=== PATIENT | female | born 1935 | race Caucasian/White ===

== ENCOUNTER → 2016-06-24 | Outpatient (CLI) | payer OTHER ==
[~2016-06-24] MED LIST: ALEN70TA4 PO; AMLO10TA2 PO; HYDR25TA4 PO; LEVO88TA21 PO; MCRK20 PO; SIMV40TA4 PO
--- NOTE | 2016-06-24 12:31 | DIAGNOSTIC IMAGING REPORT ---
MRI ABDOMEN WITHOUT CONTRAST CLINICAL HISTORY: LIVER MASS; W/O BC OF GFR TECHNIQUE: Imaging was performed without IV contrast enhancement. COMPARISON STUDY: Ultrasound GM dated 06/16/2016. CT abdomen and pelvis dated 11/23/2005 FINDINGS: Multiple bilateral renal cysts. These have been described previously. No evidence for a solid space occupying renal lesion. Superior to the right kidney and in contact with but not involving the right hepatic lobe is a mixed signal well-circumscribed nodule measuring 4.6 x 4.0 x 3.6 cm. This appears to be the echogenic nodule seen on the patient's prior ultrasound. 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 That density has been described previously. Liver parenchyma itself appears uniform. The component of mild fatty infiltration. Pancreas is unremarkable. Bowel pattern is nonobstructive. There is suggestion of several loops of small bowel showing mild wall thickening felt to be artifactual. There is no significant paravertebral or abdominal adenopathy. IMPRESSION: 1. Mixed echogenicity mass appearing to originate from the right adrenal measuring 4.6 x 4.0 x 3.6 cm. 2. This appearance suggests a benign myelolipoma, although somewhat increased in size compared to the patient's prior CT study. 3. Multiple bilateral renal cysts. 4. Mild fatty infiltration of liver Electronically signed by: Aakash Echavarria M.D. 06/24/2016 12:30 PM Dictated Date/Time: 06/24/2016 12:23 PM
== END | disposition home or self-care (01) ==
LOC: C.MRI 10:06
PROVIDERS: ATTEND Internal Medicine
DX: R16.0 Hepatomegaly, not elsewhere classified (principal); E27.9 Disorder of adrenal gland, unspecified; N28.1 Cyst of kidney, acquired

== ENCOUNTER → 2016-09-28 | Outpatient (CLI) | payer OTHER ==
--- NOTE | 2016-09-28 11:14 | DIAGNOSTIC IMAGING REPORT ---
MRI ABDOMEN WITHOUT CONTRAST CLINICAL HISTORY: ADRENAL MASS TECHNIQUE: Imaging was performed without IV contrast enhancement. COMPARISON STUDY: 06/24/2016 FINDINGS: Stable exam compared to the prior study. Right adrenal mass measuring 4.6 x 4.0 cm. Mixed signal characteristics including fat density. This again is suggestive of a myelolipoma. Bilateral renal cysts are stable. No evidence for new or interval process. Liver is uniform as is the spleen. No significant upper abdominal adenopathy. Pancreas is uniform throughout. IMPRESSION: Stable exam with no change from the prior study. 2. Stable right adrenal myelolipoma. 3. Bilateral renal cysts unchanged. 4. No evidence for new or interval process. Electronically signed by: Aakash Echavarria M.D. 09/28/2016 11:13 AM Dictated Date/Time: 09/28/2016 11:08 AM
== END | disposition home or self-care (01) ==
LOC: C.MRI 10:13
PROVIDERS: ATTEND Internal Medicine
DX: E27.9 Disorder of adrenal gland, unspecified (principal); R79.89 Other specified abnormal findings of blood chemistry

== ENCOUNTER 2018-09-18 15:13 | Inpatient (IN) ==
[2018-09-18] MEDS ORDERED: ALBUT/IPRATROP 3MG/0.5MG NEB 3 ML VIAL INH STA (15:46)
[2018-09-18] MEDS ORDERED: methylPREDNISolone 125 MG/2 ML VIAL IV STA (15:46)
[2018-09-18 16:04] LABS: Basophils # (auto) 0.02 K/uL (0-0.2); Basophils % (auto) 0.1 %; Eosinophils # (auto) 0.15 K/uL (0-0.5); Hematocrit (blood only) 38.8 % (37-47); Hemoglobin 12.8 g/dL (12.0-16.0); Immature Granulocytes # (auto) 0.14 K/uL (0.00-0.02); Immature Granulocytes % (auto) 0.9 %; Lymphocytes % (auto) 2.6 %; Mean Corpuscular Volume 85.5 fL (80-100); Mean Platelet Volume 11.8 fL (7.4-10.4); Monocytes # (auto) 0.83 K/uL (0.11-0.59); Monocytes % (auto) 5.4 %; Neutrophils # (auto) 13.82 K/uL (1.4-6.5); Platelet Count 257 K/uL (130-400); RDW Coefficient of Variation 15.5 % (11.5-14.5); RDW Standard Deviation 47.9 fL (36.4-46.3); Red Blood Count 4.54 M/uL (4.2-5.4); White Blood Count 15.36 K/uL (4.8-10.8)
[2018-09-18 16:14] LABS: INR 3.3 (0.9-1.1); Partial Thromboplastin Ratio 1.1; Partial Thromboplastin Time 30.2 Seconds (21.0-31.0); Prothrombin Time 31.1 Seconds (9.0-12.0)
[2018-09-18 16:28] LABS: Alanine Aminotransferase 16 U/L (12-78); Albumin Level 2.9 gm/dl (3.4-5.0); Aspartate Aminotransferase 12 U/L (15-37); BUN Creatinine Ratio 20.3 (10-20); Blood Urea Nitrogen 60 mg/dl (7-18); Calcium 10.8 mg/dl (8.5-10.1); Carbon Dioxide 25 mmol/L (21-32); Chloride 103 mmol/L (98-107); Est GFR (African American) 16.2; Glucose 129 mg/dl (70-99); Magnesium 2.5 mg/dl (1.8-2.4); Potassium 3.7 mmol/L (3.5-5.1); Sodium 139 mmol/L (136-145)
[2018-09-18 16:33] LABS: Albumin Globulin Ratio 0.7 (0.9-2); Alkaline Phosphatase 103 U/L (45-117); Bilirubin,Total 0.6 mg/dl (0.2-1); Globulin 4.2 gm/dl (2.5-4.0); Total Protein 7.1 gm/dl (6.4-8.2); Troponin I < 0.015 ng/ml (0-0.045)
[2018-09-18] MEDS ORDERED: DOXYCYCLINE HYCLATE 100 MG in DEXTROSE 5% 100 ML IV STA (17:26)
[2018-09-18] MEDS ORDERED: ALBUT/IPRATROP 3MG/0.5MG NEB 3 ML VIAL NEB STA (17:26)
[2018-09-18] MEDS ORDERED: SODIUM CHLORIDE 0.9% 1000ML 1,000 ML IV STA (17:27)
[2018-09-18] MEDS ORDERED: PIPERACILLIN/TAZOBACTAM 3.375 GM/115 ML BAG IV STA (18:46)
[2018-09-18] MEDS ORDERED: PIPERACILL/TAZOBAC CONSULT ACTIVE PRN (18:46)
[2018-09-18 19:49] LABS: Appearance Urine Clear (Clear); Bacteria Urine Automated Negative (Negative); Bilirubin Urine Negative (Negative); Blood Urine Trace (Negative); Color Urine Yellow; Epithelial Cell Urine Auto >30 /lpf (0-5); Glucose Urine UA Negative (Negative); Ketones Urine Negative (Negative); Leukocyte Esterase Urine Negative (Negative); Nitrite Urine Negative (Negative); Protein Urine Negative (Negative); RBC Urine Automated 0-4 /hpf (0-4); Specific Gravity Urine 1.015 (1.000-1.030); Urobilinogen Urine Negative (Negative)
[2018-09-18] MEDS ORDERED: LEVALBUTEROL HCL 0.63 MG/3 ML NEB NEB PRN (20:18)
[2018-09-18] MEDS ORDERED: ACETAMINOPHEN 325 MG TAB PO PRN (21:15)
[2018-09-18] MEDS ORDERED: PATIENT'S HEIGHT AND/OR WEIGHT NEEDED SCH (21:30)
[2018-09-19] MEDS: SODIUM CHLORIDE 0.9% 1000ML 1,000 ML IV SCH ×3 (00:28→21:49)
[2018-09-19] MEDS: BUDESONIDE 0.5 MG/2 ML VIAL (PULMICORT) INH SCH ×3 (00:45→19:41)
--- NOTE | 2018-09-19 00:55 | Emergency Department Note ---
Entered by Laura Burdick acting as a scribe for Kevin Brown MD ED Provider Note CHIEF COMPLAINT: Respiratory Distress HISTORY OF PRESENT ILLNESS: The patient is a 83 year old female who presents to the Emergency Room with com plaints of respiratory distress that began several months prior to arrival. The patient states that she has shortness of breath and states that they tried to increase her breathing rate at [facility] just prior to arrival. The patient states that she does not wear oxygen at home but states that she does use an inhaler. The patient states that she just finished a prednisone adin 1 day prior to arrival. The patient denies any general pain. The patient also states that she had a chest XRAY done at [facility] prior to arrival. The patient states that she has history of asthma, COPD, emphysema, and a cardiac pacemaker. The patient states that she has a history of blood clots in the lungs and states that she is on Coumadin for this. The patient denies a history of pneumonia. Pt denies LOC, headache, fevers, chills, diaphoresis, visual changes, neck pain, chest pain, nausea, vomiting, abdominal pain, back pain, melena, hematochezia, urinary symptoms, numbness, weakness, lymphadenopathy, rash, or other complaints. [facility] Reviewed: The patient's chest XRAY from [facility] showed severe emphysema with no pneumonia or pneumothorax. 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 REVIEW OF SYSTEMS: See HPI for pertinent positives and negatives. A total of ten systems were reviewed and were otherwise negative. PMHx/PSHx: Thor-tachy syndrome Pulmonary embolism Stage 4 chronic kidney disease Lupus anticoagulant disorder COPD (chronic obstructive pulmonary disease) Asthma Emphysema SOCIAL HISTORY: Patient lives at home. PHYSICAL EXAM: GENERAL: Awake, alert, well-appearing, in no distress. HENT: Normocephalic, atraumatic. Oropharynx unremarkable. EYES: PERRL. Normal conjunctiva. Sclera non-icteric. NECK: Inspection normal. Non-tender. Supple. No nuchal rigidity. FROM. No masses. RESPIRATORY: Diminished breath sounds at bases. No wheezes. No rales. Normal respiratory effort. CARDIAC: Normal rate. Normal rhythm. No murmurs. No rubs. Extremities warm and well perfused. Pulses equal. No JVD. GI: Soft, non-distended. No tenderness to palpation. No rebound or guarding. No masses. RECTAL: Deferred. MUSCULOSKELETAL: Atraumatic. Chest examination reveals no tenderness. The back is symmetrical on inspection without obvious abnormality. There is no CVA tenderness to palpation. No joint edema. LOWER EXTREMITIES: Calves are equal size bilaterally and non-tender. No edema. Chronic venous discoloration. NEURO: Normal sensorium. No sensory or motor deficits noted. SKIN: No rash or jaundice noted. EMERGENCY DEPARTMENT COURSE: 1545: Past medical records reviewed. The patient was evaluated in room C5, and a complete history and physical examination were performed. 1650: I checked on the patient and updated her on her results. The patient is agreeable to admission. 1745: I [facility] the [facility] who will evaluate the patient for further hospitalization. The patient will be admitted to Dr. Bowen. MEDICAL DECISION MAKING: Prior records/ancillary studies reviewed. Triage Nursing notes reviewed and agree them. Additional history obtained from the family. The patient's history was concerning for shortness of breath. Differential diagnosis: Etiologies such as pneumonia, COPD, reactive airway disease, CHF, cardiac ischemia, pulmonary embolism, pneumothorax, musculoskeletal, infections, gastrointestinal, as well as others were entertained. Physical examination: The patient had increased work of breathing. She was hypoxic on room air. ER treatment provided: Supplemental oxygen Cardiac monitoring DuoNeb x2 IV doxycycline On reassessment the patient felt better. Diagnostic interpretation by me: The electrocardiogram was negative for pathologic change. The labs revealed a moderate leukocytosis on CBC of 15,000. The patient's INR is slightly supratherapeutic at 3.3. Chemistry panel was concerning for dehydration and mild EVY. The patient does have a negative troponin. Chest x-ray report from [facility] revealed no evidence of pneumonia.. The patient has hypoxia. She is increased work of breathing. She is mildly dehydrated. She will need further management in the hospital regarding this COPD exacerbation. Consultation: A consultation was placed with the hospitalist. The case was discussed and diagnostics were reviewed. The patient was evaluated in the ER for further treatment. IMPRESSION: Hypoxia COPD (chronic obstructive pulmonary disease) Dehydration PLAN: Being Evaluated by Hospitalist. The scribe's documentation has been prepared under my direction and personally reviewed by me in its entirety. I confirm that the note above accurately reflects all work, treatment, procedures, and medical decision making performed by me. 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 Beliefs That Will Affect Care: None marital status: Current Living Situation: Spouse Current Living Situation Comment: House Other Information That Helps Us Care for You: No Feels Safe at Home: Yes Safety Concerns: Feels Safe At This Time Smoking Status: Former smoker Do You Dip or Chew Tobacco: No Second Hand Exposure: No Hx Alcohol Use: No Hx Substance Use: No Results & Data Vital Signs Vital Signs - 24 hr 09/18/18 15:15 09/18/18 16:07 09/18/18 16:33 Sepsis Recent Fever Within 48 Hours No Sepsis New/Unexplained Change in Mental Status No Sepsis Action Taken by Nursing No Action Required Pulse Rate 74 71 Pulse Rate [Right Radial] 62 Pulse Rate from SpO2 Sensor 71 Respiratory Rate 26 H 18 20 Respiratory Effort / Characteristics Non-Labored Non-Labored Spontaneous Respiratory Depth Normal Blood Pressure 115/76 Blood Pressure Mean 89 Pulse Oximetry 86 L 93 93 Oxygen Delivery Method Room Air Nasal Cannula Nasal Cannula Oxygen Flow Rate 6 6 09/18/18 16:46 09/18/18 16:49 09/18/18 17:00 Sepsis Recent Fever Within 48 Hours Sepsis New/Unexplained Change in Mental Status Sepsis Action Taken by Nursing Pulse Rate 61 Pulse Rate [Right Radial] Pulse Rate from SpO2 Sensor 61 Respiratory Rate 21 Respiratory Effort / Characteristics Respiratory Depth Blood Pressure Blood Pressure Mean Pulse Oximetry 95 Oxygen Delivery Method Nasal Cannula Nasal Cannula Nasal Cannula Oxygen Flow Rate 6 4.5 4 09/18/18 17:22 09/18/18 17:30 09/18/18 17:48 Sepsis Recent Fever Within 48 Hours Sepsis New/Unexplained Change in Mental Status Sepsis Action Taken by Nursing Pulse Rate 72 63 Pulse Rate [Right Radial] 68 Pulse Rate from SpO2 Sensor 63 59 L Respiratory Rate 16 22 18 Respiratory Effort / Characteristics Non-Labored Spontaneous Respiratory Depth Blood Pressure 136/65 Blood Pressure Mean 88 Pulse Oximetry 93 92 90 Oxygen Delivery Method Nasal Cannula Nasal Cannula Nasal Cannula Oxygen Flow Rate 4 2 2 09/18/18 18:00 09/18/18 18:30 Sepsis Recent Fever Within 48 Hours Sepsis New/Unexplained Change in Mental Status Sepsis Action Taken by Nursing Pulse Rate 72 67 Pulse Rate [Right Radial] Pulse Rate from SpO2 Sensor 71 65 Respiratory Rate 21 20 Respiratory Effort / Characteristics Respiratory Depth Blood Pressure Blood Pressure Mean Pulse Oximetry 93 92 Oxygen Delivery Method Nasal Cannula Nasal Cannula Oxygen Flow Rate 2 2 Home Medications Current Medication List: was personally reviewed by me Laboratory Data Attestation: I reviewed the patient's lab results. Result diagrams: 09/18/18 15:40 09/18/18 15:40 Lab Results 09/18/18 09/18/18 09/18/18 Range/Units 15:40 15:40 15:40 WBC 15.36 H (4.8-10.8) K/uL RBC 4.54 (4.2-5.4) M/uL Hgb 12.8 (12.0-16.0) g/dL Hct 38.8 (37-47) % MCV 85.5 (80-100) fL MCH 28.2 (25-34) pg MCHC 33.0 (32-36) g/dL RDW Std Deviation 47.9 H (36.4-46.3) fL RDW Coeff of Lazaro 15.5 H (11.5-14.5) % Plt Count 257 (130-400) K/uL MPV 11.8 H (7.4-10.4) fL Immature Gran % (Auto) 0.9 % Neut % (Auto) 90.0 % Lymph % (Auto) 2.6 % Williams % (Auto) 5.4 % Eos % (Auto) 1.0 % Baso % (Auto) 0.1 % Immature Gran # (Auto) 0.14 H (0.00-0.02) K/uL Neut # (Auto) 13.82 H (1.4-6.5) K/uL Lymph # (Auto) 0.40 L (1.2-3.4) K/uL Williams # (Auto) 0.83 H (0.11-0.59) K/uL Eos # (Auto) 0.15 (0-0.5) K/uL Baso # (Auto) 0.02 (0-0.2) K/uL PT 31.1 H (9.0-12.0) Seconds INR 3.3 H (0.9-1.1) APTT 30.2 (21.0-31.0) Seconds PTT Ratio 1.1 Sodium 139 (136-145) mmol/L Potassium 3.7 (3.5-5.1) mmol/L Chloride 103 (98-107) mmol/L Carbon Dioxide 25 (21-32) mmol/L Anion Gap 10.0 (3-11) BUN 60 H (7-18) mg/dl Creatinine 2.98 H (0.6-1.2) mg/dl Est Cr Clr Drug Dosing Not Reportable Est GFR ( Amer) 16.2 Est GFR (Non-Af Amer) 14.0 BUN/Creatinine Ratio 20.3 H (10-20) Glucose 129 H (70-99) mg/dl POC Lactic Acid Hima (0.90-1.70) mmol/L Calcium 10.8 H (8.5-10.1) mg/dl Magnesium 2.5 H (1.8-2.4) mg/dl Total Bilirubin 0.6 (0.2-1) mg/dl AST 12 L (15-37) U/L ALT 16 (12-78) U/L Alkaline Phosphatase 103 (45-117) U/L Troponin I < 0.015 (0-0.045) ng/ml Total Protein 7.1 (6.4-8.2) gm/dl Albumin 2.9 L (3.4-5.0) gm/dl Globulin 4.2 H (2.5-4.0) gm/dl Albumin/Globulin Ratio 0.7 L (0.9-2) 09/18/18 Range/Units 15:47 WBC (4.8-10.8) K/uL RBC (4.2-5.4) M/uL Hgb (12.0-16.0) g/dL Hct (37-47) % MCV (80-100) fL MCH (25-34) pg MCHC (32-36) g/dL RDW Std Deviation (36.4-46.3) fL RDW Coeff of Lazaro (11.5-14.5) % Plt Count (130-400) K/uL MPV (7.4-10.4) fL Immature Gran % (Auto) % Neut % (Auto) % Lymph % (Auto) % Williams % (Auto) % Eos % (Auto) % Baso % (Auto) % Immature Gran # (Auto) (0.00-0.02) K/uL Neut # (Auto) (1.4-6.5) K/uL Lymph # (Auto) (1.2-3.4) K/uL Williams # (Auto) (0.11-0.59) K/uL Eos # (Auto) (0-0.5) K/uL Baso # (Auto) (0-0.2) K/uL PT (9.0-12.0) Seconds INR (0.9-1.1) APTT (21.0-31.0) Seconds PTT Ratio Sodium (136-145) mmol/L Potassium (3.5-5.1) mmol/L Chloride (98-107) mmol/L Carbon Dioxide (21-32) mmol/L Anion Gap (3-11) BUN (7-18) mg/dl Creatinine (0.6-1.2) mg/dl Est Cr Clr Drug Dosing Est GFR ( Amer) Est GFR (Non-Af Amer) BUN/Creatinine Ratio (10-20) Glucose (70-99) mg/dl POC Lactic Acid Hima 2.46 H (0.90-1.70) mmol/L Calcium (8.5-10.1) mg/dl Magnesium (1.8-2.4) mg/dl Total Bilirubin (0.2-1) mg/dl AST (15-37) U/L ALT (12-78) U/L Alkaline Phosphatase (45-117) U/L Troponin I (0-0.045) ng/ml Total Protein (6.4-8.2) gm/dl Albumin (3.4-5.0) gm/dl Globulin (2.5-4.0) gm/dl Albumin/Globulin Ratio (0.9-2) Administered Medications Budesonide (Pulmicort Respules) 0.5 mg INH BIDR [facility] Stop: 10/18/18 21:14 Last Admin: 09/19/18 00:45 Dose: Not Given Documented by: [id number] Sodium Chloride (Nss 1000ml) 1,000 mls @ 125 mls/hr IV .Q8H [facility] Stop: 10/18/18 23:14 Last Admin: 09/19/18 00:28 Dose: 125 mls/hr Documented by: [id number] Ranitidine HCl (Zantac) 150 mg PO QPM [facility] Stop: 10/18/18 21:14 Last Admin: 09/18/18 21:56 Dose: 150 mg Documented by: [id number] Discontinued Medications Albuterol (Duoneb) 3 ml INH NOW STA Stop: 09/18/18 15:47 Last Admin: 09/18/18 16:07 Dose: 3 ml Documented by: [id number] Albuterol (Duoneb) 3 ml NEB NOW STA Stop: 09/18/18 17:27 Last Admin: 09/18/18 17:48 Dose: 3 ml Documented by: [id number] Doxycycline Hyclate 100 mg/ (Dextrose) 110 mls @ 50 mls/hr IV NOW STA Stop: 09/18/18 19:37 Last Infusion: 09/18/18 20:05 Dose: 0 mls/hr Documented by: [id number] Admin: 09/18/18 18:00 Dose: 50 mls/hr Documented by: [id number] Sodium Chloride (Nss 1000ml) 1,000 mls @ 125 mls/hr IV .Q8H STA Stop: 09/19/18 01:26 Last Infusion: 09/19/18 00:12 Dose: 0 mls/hr Documented by: [id number] Admin: 09/18/18 18:00 Dose: 125 mls/hr Documented by: [id number] Piperacillin Sod/Tazobactam Sod (Zosyn) 3.375 gm in 115 mls @ 230 mls/hr IV NOW STA Stop: 09/18/18 19:15 Last Infusion: 09/18/18 21:30 Dose: 0 mls/hr Documented by: [id number] Admin: 09/18/18 20:38 Dose: 230 mls/hr Documented by: [id number] Methylprednisolone (Solumedrol) 125 mg IV NOW STA Stop: 09/18/18 15:47 Last Admin: 09/18/18 16:33 Dose: 125 mg Documented by: [id number] ECG Data Attestation: I personally reviewed and interpreted this ECG as follows: Indication: SOB/dyspnea Rate (beats per minute): 68 Rhythm: other (paced rhythm ) Findings: + other (+LVH), + LAFB, + PAC, + Q waves (Septal) and + RBBB (incomplete ) Blood Pressure Blood Pressure Findings: Elevated blood pressure Blood Pressure Disposition: elevated BP felt to be situational Discharge Plan Visit Data *Final* Discharge Date/Time: 09/18/18 20:54 Chief Complaint: Respiratory Distress Stated Complaint: RESPIRATORY DISTRESS ED Provider: Kevin Brown Discharge Problem: Hypoxia, COPD (chronic obstructive pulmonary disease), Dehydration Patient Disposition: Admitted As Inpatient Discharge Instructions Interventions: ED Discharge Assessment Last Done: 09/18/18 20:54 Discharge Problem: COPD (chronic obstructive pulmonary disease) Qualifiers: COPD type: unspecified COPD Qualified Code(s): J44.9 - Chronic obstructive pulmonary disease, unspecified The scribe's documentation has been prepared under my direction and personally reviewed by me in its entirety. I confirm that the note above accurately reflects all work, treatment, procedures, and medical decision making performed by me.
[2018-09-19] MEDS: PIPERACILLIN/TAZOBACTAM 3.375 GM in DEXTROSE 5% 100 ML IV SCH ×2 (04:11→17:14)
[2018-09-19] MEDS: methylPREDNISolone 20 MG in SYRINGE 0 ML IV SCH ×2 (05:03→17:15)
[2018-09-19] MEDS: LEVOTHYROXINE SODIUM 88 MCG TABLET PO SCH (05:03)
--- NOTE | 2018-09-19 05:32 | History & Physical Report ---
Date of Service September 18, 2018 Assessment & Plan (1) Acute respiratory failure with hypoxia: Former smoker. Underlying COPD, but has had adequate oxygenation at rest and with ambulation on room air in the past. Progressive dyspnea over past several weeks, most recently with minimal exertio n. Had some benefit with prednisone taper, the symptoms worsened as soon as taper was completed yesterday. Hypoxic with O2 saturations in the 80s in clinic. Oxygen saturation in the ED as low was 77%. Etiology of worsening hypoxia and symptoms to be determined. Has a mild nonproductive cough. May or may not have a lower respiratory tract infection. Chest x-ray in clinic today reportedly did not show any infiltrates. Consider bronchiectasis with infection. History of pulmonary embolism on warfarin therapy with therapeutic INR. Recurrent VTE very unlikely. Check CT of chest without contrast. Patient received doxycycline in the ED. Will add piperacillin/tazobactam for broader coverage. Received IV methylprednisolone in the ED. Continue methylprednisolone 20 mg IV twice daily. Consult Pulmonary Medicine. (2) COPD (chronic obstructive pulmonary disease): As discussed above. (3) Elevated lactic acid level: Serum lactate 2.46. Does not appear to be septic. Leukocytosis probably secondary to prednisone therapy that was just completed yesterday. Elevated serum lactate most likely secondary to hypoxia. Follow. (4) History of pulmonary embolism: History of pulmonary embolism. Hypercoagulable state secondary to lupus anticoagulant and heterozygous MTHFR mutation. Continue anticoagulation with warfarin. (5) Paroxysmal atrial fibrillation: Currently in atrial paced rhythm. Continue atenolol. Continue anticoagulation with warfarin. (6) Stage 4 chronic kidney disease: CKD 4. Creatinine in March range between 2.16 and 2.93. Creatinine at time of admission 2.98. Received IV fluids in the ED. Hold furosemide. Follow. (7) Cerebrovascular disease: Continue warfarin. (8) GERD (gastroesophageal reflux disease): Continue ranitidine. (9) Advanced directives, counseling/discussion: Discussed with patient and her family. Patient indicates that she has a living well. She would like resuscitation attempted in the event of a cardiopulmonary arrest if there is a reasonable chance of meaningful recovery. However, she would not want extraordinary measures undertaken or continued if prognosis is grim. CODE STATUS at this time is full resuscitation. (10) DVT prophylaxis: On chronic warfarin therapy. (11) Discharge planning issues: Anticipated discharge to home. Internal Medicine follow-up with Dr. Strange. Pulmonary follow-up with [facility]. History of Present Illness Chief Complaint: shortness of breath Primary Care Provider: Yordy Strange MD 83-year-old female followed by Dr. Strange for Internal Medicine in [facility] at [facility]. Former smoker. History of severe COPD, but has not required chronic steroids or supplemental oxygen. Pulse oximetry with ambulation a few months ago in clinic showed adequate oxy[place] nation. History of pulmonary embolism with underlying lupus anticoagulant and heterozygous MTHFR mutation. On chronic warfarin therapy and monitored regularly by Anticoagulation Clinic. Diagnosed with tachybradycardia syndrome about 6 months ago with significant/symptomatic bradycardia. Pacemaker placed and cardiac rhythms have been controlled. A couple months ago patient noticed increasing dyspnea on exertion. Prior to that, she is able to climb a flight of stairs without stopping to rest. More recently, she has been more dyspneic and has to stop 2 or 3 times while climbing a flight of stairs. Occasional nonproductive cough. Transient mild chest pressure with exertion. She was placed on a prednisone taper on 09/04/2018 and completed the taper yesterday. [place] more short of breath today. Evaluated in pulmonary clinic. Found to be hypoxic with O2 saturations in the 80s. Chest x-ray in clinic reportedly did not show any infiltrates. Patient was referred to the ED for further evaluation and management. At the time of my assessment the ED, O2 saturations were in the low 90s on 2 L nasal cannula and patient was breathing comfortably. Allergies Allergy/AdvReac Type Severity Reaction Status Date / Time Nitrate Analogues Allergy Mild Unknown Verified 09/18/18 17:54 nitrofurantoin Allergy Mild Unknown Verified 09/18/18 17:54 Quinolones Allergy Mild Intolerant Verified 09/18/18 17:54 ciprofloxacin [From Cipro] Allergy Unknown Intolerant Verified 09/18/18 17:54 Home Medications Home Medications Medication Instructions Recorded Confirmed Type amlodipine 5 mg PO DAILY 03/28/18 09/18/18 History cyanocobalamin (vitamin B-12) 1,000 mcg PO DAILY 03/28/18 09/18/18 History [Vitamin B-12] folic acid 2 mg PO DAILY 03/28/18 09/18/18 History furosemide 40 mg PO Q2D 03/28/18 09/18/18 History levothyroxine 88 mcg PO DAILY 03/28/18 09/18/18 History warfarin [Jantoven] 2 mg PO UD 03/28/18 09/18/18 History albuterol sulfate 2.5 mg INHALATION UD PRN 09/18/18 09/18/18 History albuterol sulfate [ProAir HFA] 2 puff INHALATION Q4H PRN 09/18/18 09/18/18 History budesonide [Pulmicort] 0.5 mg INHALATION BID 09/18/18 09/18/18 History bupropion HCl 150 mg PO DAILY 09/18/18 09/18/18 History wflqyprgeem-ronwyxfkp-gjffituc 1 inh INHALATION DAILY 09/18/18 09/18/18 History [Trelegy Ellipta] metoprolol succinate [Toprol XL] 25 mg PO DAILY 09/18/18 09/18/18 History ranitidine HCl 150 mg PO QPM 09/18/18 09/18/18 History Past Med/Surg History Medical History Advanced directives, counseling/discussion (Chronic) Carotid artery disease (Chronic) Cerebrovascular disease (Chronic) Anticoagulant long-term use (Chronic) GERD (gastroesophageal reflux disease) (Chronic) Bronchiectasis (Chronic) Hyperparathyroidism (Chronic) Dyslipidemia (Chronic) no statin due to elevated LFT's Hypertension (Chronic) Paroxysmal atrial fibrillation (Chronic) Myelolipoma of right adrenal gland (Chronic) Hypothyroidism (Chronic) Pacemaker (Chronic) Tachy-en syndrome (Chronic) Lupus anticoagulant with hypercoagulable state (Chronic) History of pulmonary embolism (Chronic) Emphysema of lung (Chronic) COPD (chronic obstructive pulmonary disease) (Chronic) Asthma (Chronic) Stage 4 chronic kidney disease (Chronic) Surgical History Status cardiac pacemaker (Chronic) 03/29/18 Dr. Lima Status post cataract extraction (Chronic) Status post partial resection of colon (Chronic) 2006 diverticular abscess Family History Mother Stroke Father Colorectal cancer Other Family history non-contributory Social History Preferred Language: Portuguese Communication Ability: Effective Machine Lead Burner Required: No Beliefs That Will Affect Care: None marital status: Current Living Situation: Spouse Current Living Situation Comment: House Other Information That Helps Us Care for You: No Feels Safe at Home: Yes Safety Concerns: Feels Safe At This Time Smoking Status: Former smoker Do You Dip or Chew Tobacco: No Second Hand Exposure: No Hx Alcohol Use: No Hx Substance Use: No Review of Systems Constitutional: + weight loss (about 10 lbs); no fever Eyes: chronic vision loss right eye Ear, Nose, Mouth, Throat: no nasal congestion, no sinus pain/pressure and no sore throat Respiratory: as per Subjective / HPI Cardiovascular: as per Subjective / HPI Gastrointestinal: + diarrhea/loose stools (few weeks ago, resolved); no nausea, no vomiting, no constipation, no blood in stools and no melena Genitourinary: no dysuria and no hematuria Musculoskeletal: no joint pain and no myalgia Integumentary: no rash and no new lesions Neurologic: no headache(s) Endocrine: no polydipsia and no polyuria Hematologic / Lymphatic: + easy bruising; no easy bleeding and no lymphadenopathy Physical Exam Constitutional: + thin; no acute distress pulse 74, respirations 26, BP 115/76 O2 sat 86% RA Eyes: PERRL, conjunctivae normal, anicteric sclerae decreased vision right eye ENMT: external ear and nose normal, oropharynx normal Mouth: + dentition abnormality (upper partial plate) Neck: trachea midline, no thyromegaly Respiratory: no respiratory distress Auscultation: + rales (coarse rales at bases) and + wheezes (diffuse, mild) Cardiovascular: Rate/Rhythm: regular rate Heart Sounds: no gallop, no murmur and no cardiac rub Vessels: no JVD Extremities: normal capillary refill and + edema (trace pretibial); no calf tenderness Gastrointestinal (Abdomen): normal bowel sounds, soft, nontender, no hepatosplenomegaly Musculoskeletal: Head/Neck/Chest: neck supple Extremities: strength 5/5 throughout; no cyanosis and no clubbing Skin: + rash (chronic venous stasis changes lower extremities) Neurologic: PERRL, EOMI no facial palsy no dysarthria or aphasia patellar DTR's 2/2 bilat Psychiatric: Orientation: alert and oriented x 3 Affect: euthymic affect Lymphatic: no cervical lymphadenopathy Results & Data Laboratory Results Laboratory Tests 09/18/18 09/18/18 09/18/18 15:40 15:40 15:40 WBC 15.36 H Hgb 12.8 Plt Count 257 INR 3.3 H Sodium 139 Potassium 3.7 Chloride 103 Carbon Dioxide 25 BUN 60 H Creatinine 2.98 H Glucose 129 H POC Lactic Acid Hima Calcium 10.8 H Magnesium 2.5 H 09/18/18 15:47 WBC Hgb Plt Count INR Sodium Potassium Chloride Carbon Dioxide BUN Creatinine Glucose POC Lactic Acid Hima 2.46 H Calcium Magnesium Diagnostic Findings Chest x-ray performed in clinic reportedly did not show any infiltrates.
[2018-09-19] MEDS: LEVALBUTEROL 1.25MG/0.5ML NEB INH SCH ×4 (06:58→19:42)
[2018-09-19 07:17] LABS: Prothrombin Time 38.6 Seconds (9.0-12.0)
[2018-09-19 07:19] LABS: INR 4.2 (0.9-1.1)
[2018-09-19] MEDS: IPRATROPIUM BROMIDE NEB SOLN 0.02% 2.5 ML VIAL INH SCH ×4 (07:25→19:42)
[2018-09-19 07:35] LABS: BUN Creatinine Ratio 20.1 (10-20); Calcium 9.6 mg/dl (8.5-10.1); Creatinine Clr Calc Pharmacy 12.5 ml/min; Est GFR (African American) 17.1; Est GFR (Non-African American) 14.7; Potassium 4.6 mmol/L (3.5-5.1)
[2018-09-19] MEDS ORDERED: XOPENEX/ATROVENT 1.25mg/0.5MG NEB COMBO NEB SCH (08:00)
--- NOTE | 2018-09-19 08:25 | XRay Report ---
SINGLE VIEW CHEST CLINICAL HISTORY: Hypoxia. FINDINGS: An AP, portable, upright chest radiograph is compared to study dated 03/30/2018 and correla anca with chest CT dated 02/17/2012. Degree A 2-lead cardiac pacemaker is unchanged in position and par tially obscures the left midlung. The cardiomediastinal silhouette is unremarkable noting atheroscler otic calcification of the thoracic aorta. Advanced emphysema and chronic interstitial thickening are similar to previous. Changes of superimposed interstitial lung disease are suggested. Superimposed pa tchy airspace consolidation is suggested in the right midlung and at the left lung base. No large ple ural effusion or pneumothorax is seen. The skeletal structures are osteopenic. The bony thorax is eboni ssly intact. IMPRESSION: 1. Advanced emphysema and suspect changes of superimposed interstitial lung disease. 2. Patchy airspace opacities in the right midlung and at the left lung base may represent superimpose d pneumonia. Clinical correlation will be required and radiographic follow-up to resolution is recomm ended. 3. A cardiac pacemaker is in place. There is no radiographic evidence of congestive failure. Electronically signed by: Rene Forrester M.D. 09/19/2018 8:24 AM
[2018-09-19] MEDS ORDERED: NON-FORMULARY MEDICATION (Cyanocobalamin (Vitamin B-12) [Vitamin B-12] 1,000 MCG) PO SCH (09:00)
[2018-09-19] MEDS: BuPROPion SR 150 MG TABCR PO SCH (09:02)
[2018-09-19] MEDS: FOLIC ACID 1 MG TAB PO SCH (09:02)
[2018-09-19] MEDS: CYANOCOBALAMIN 500 MCG TABLET (VITAMIN B-12) PO SCH (09:02)
[2018-09-19] MEDS: METOPROLOL SUCC 25MG EXT REL TAB PO SCH (09:02)
[2018-09-19] MEDS: AMLODIPINE BESYLATE 5 MG TAB PO SCH (09:03)
[2018-09-19] MEDS: DOXYCYCLINE HYCLATE 100 MG CAP PO SCH ×2 (10:29→20:22)
--- NOTE | 2018-09-19 11:05 | CT Scan Report ---
CT SCAN OF THE CHEST WITHOUT IV CONTRAST CLINICAL HISTORY: COPD. Hypoxia. COMPARISON STUDY: Chest CT scan dated 06/08/2018 and 02/17/2012. Chest x-ray dated 09/19/2018. TECHNIQUE: CT scan of the thorax was performed from the thoracic inlet to the upper abdomen. Images are reviewed in the axial, sagittal, and coronal planes. IV contrast was not administered for this ex amination as per the referring clinician. A dose lowering technique was utilized adhering to the deep [place]. CT DOSE: 183.53 mGy.cm FINDINGS: Thyroid: Atrophic. Thoracic aorta: There is advanced atherosclerotic calcification of the thoracic aorta, which is isabel l in caliber and demonstrates standard 3-vessel arch anatomy. Heart: A 2-lead cardiac pacemaker is present in the left chest wall. The heart is normal in size noti ng trace pericardial effusion. The coronary arteries are densely calcified. There is diminished atten uation of the cardiac blood pool as compared to the myocardium suggesting anemia. The main pulmonary arteries are dilated suggesting pulmonary artery hypertension. Lungs and pleural spaces: There is advanced emphysema. Superimposed interstitial/fibrotic lung diseas e is suggested at both lung bases. The trachea and central airways are clear. Foci of air trapping ar e seen in both lungs. There are numerous irregular small scattered nodular airspace opacities, which appears increased from 06/08/2018. No pleural effusion or lobar consolidation is seen. Mediastinum: There is no mediastinal lymphadenopathy. Naty: Not well assessed without IV contrast. Axillae: There is no axillary lymphadenopathy. Upper abdomen: There is a large right adrenal lesion containing macroscopic fat. This measures up to 5.6 cm and is typical appearance for a myelolipoma. This has been present dating back to 2011 and has increased in size from that time. An exophytic cyst is partially visualized arising from the upper p ole of the left kidney. There is a tiny hiatal hernia. Skeletal structures: The skeletal structures are osteopenic. Numerous compression deformities are not ed throughout the thoracic spine. Arthritic change is seen in the shoulders. No lytic or blastic bony lesions are seen. IMPRESSION: 1. Advanced emphysema with evidence of superimposed interstitial/fibrotic lung disease. 2. There is no lobar consolidation or pleural effusion. 3. There are numerous scattered foci of irregular airspace nodularity. This has increased from 019 and may represent a mild superimposed infectious/inflammatory pneumonitis. Clinical correlation w ill be essential. Follow-up if clinically warranted. 4. A large myelolipoma is again noted in the right adrenal gland. 5. Additional findings as above. Electronically signed by: Rene Forrester M.D. 09/19/2018 11:04 AM
[2018-09-19] MEDS ORDERED: WARFARIN SOD 1 MG TAB PO SCH (16:00)
--- NOTE | 2018-09-19 17:28 | Hospitalist Progress Note ---
Date of Service September 19, 2018 Assessment & Plan (1) Acute respiratory failure with hypoxia: Former smoker. Underlying COPD, but has had adequate oxygenation at rest and with ambulation on room air in the past. Progressive dyspnea over past several weeks, most recently with minimal exertion . Had some benefit with prednisone taper, the symptoms worsened as soon as taper was completed yesterday. Hypoxic with O2 saturations in the 80s in clinic. Oxygen saturation in the ED as low was 77%. Etiology of worsening hypoxia and symptoms to be determined. Mild nonproductive cough. May or may not have a lower respiratory tract infection. Chest x-ray in clinic today reportedly did not show any infiltrates. Consider bronchiectasis with infection. History of pulmonary embolism on warfarin therapy with therapeutic INR. Recurrent VTE very unlikely. Check CT of chest without contrast. Patient received doxycycline in the ED. Added piperacillin/tazobactam for broader coverage. Received IV methylprednisolone in the ED; continue methylprednisolone 20 mg IV twice daily. Pulmonary Medicine consulted. (2) COPD (chronic obstructive pulmonary disease): As discussed above. (3) Elevated lactic acid level: Serum lactate 2.46. Does not appear to be septic. Leukocytosis probably secondary to prednisone therapy that was just completed yesterday. Elevated serum lactate most likely secondary to hypoxia. Improved. (4) History of pulmonary embolism: History of pulmonary embolism. Hypercoagulable state secondary to lupus anticoagulant and heterozygous MTHFR mutation. Continue anticoagulation with warfarin. INR elevated today. Change warfarin to 2.5 mg daily, hold for INR > 3.5. (5) Paroxysmal atrial fibrillation: Currently in atrial paced rhythm. Continue atenolol. Continue anticoagulation with warfarin. (6) Stage 4 chronic kidney disease: CKD 4. Creatinine in March range between 2.16 and 2.93. Creatinine at time of admission 2.98. Received IV fluids. Holding furosemide. Creatinine today = 2.86. Follow. (7) Cerebrovascular disease: Continue warfarin. (8) GERD (gastroesophageal reflux disease): Continue ranitidine. (9) Advanced directives, counseling/discussion: Discussed with patient and her family. Patient indicates that she has a living well. She would like resuscitation attempted in the event of a cardiopulmonary arrest if there is a reasonable chance of meaningful recovery. However, she would not want extraordinary measures undertaken or continued if prognosis is grim. CODE STATUS at this time is full resuscitation. (10) DVT prophylaxis: On chronic warfarin therapy. (11) Discharge planning issues: Anticipated discharge to home. Internal Medicine follow-up with Dr. Strange. Pulmonary follow-up with [facility]. Subjective Recheck for hypoxia and other problems. Patient seen in their room around 0920.. Feels somewhat better, but still requiring oxygen by nasal cannula to maintain adequate oxygenation. Rare nonproductive cough. No fever. No chest pain. Review of Systems: Constitutional- no fever. Cardiac- no chest pain. Pulmonary- as noted above. GI- no nausea, vomiting, diarrhea, melena, hematochezia. - no urinary symptoms. Otherwise, as noted above. Physical Exam Constitutional: no acute distress Respiratory: no respiratory distress Auscultation: + rales (coarse rales at bases) Cardiovascular: Rate/Rhythm: regular rate and regular rhythm Heart Sounds: no gallop, no murmur and no cardiac rub Vessels: no JVD Extremities: no calf tenderness and no edema Gastrointestinal (Abdomen): normal bowel sounds, soft, nontender, no hepatosplenomegaly Skin: no rashes, warm and dry Psychiatric: Orientation: alert and oriented x 3 Results & Data Vital Signs (Past 12 Hours) Vital Signs Temp Pulse Pulse Resp BP Pulse Ox 09/19/18 15:35 69 16 94 09/19/18 15:34 36.5 C 67 20 146/73 H 94 09/19/18 08:07 36.5 C 75 18 148/81 H 97 09/19/18 08:00 66 09/19/18 07:02 67 20 95 Laboratory Results Laboratory Results - last 24 hr 09/19/18 09/19/18 09/19/18 06:40 06:40 06:40 PT 38.6 H INR 4.2 H Sodium 143 Potassium 4.6 D Chloride 111 H Carbon Dioxide 23 Anion Gap 9.0 BUN 57 H Creatinine 2.86 H Est Cr Clr Drug Dosing 12.5 Est GFR ( Amer) 17.1 Est GFR (Non-Af Amer) 14.7 BUN/Creatinine Ratio 20.1 H Glucose 182 H Lactate 2.0 Calcium 9.6 NT-Pro-B Natriuret Pep Pipiw-[id number] Procalcitonin A.fumigatus Allerg IgG IgG IgA IgM IgE Aspergillus flavus Ab Aspergill fumigatus Ab A. galactomannan Ag A. galactomannan Ag Idx Aspergillus niger Ab 09/19/18 09/19/18 09/19/18 06:40 06:40 15:57 PT INR Sodium Potassium Chloride Carbon Dioxide Anion Gap BUN Creatinine Est Cr Clr Drug Dosing Est GFR ( Amer) Est GFR (Non-Af Amer) BUN/Creatinine Ratio Glucose Lactate Calcium NT-Pro-B Natriuret Pep 872 Iivvk-[id number] Procalcitonin 0.07 A.fumigatus Allerg IgG IgG 894.0 IgA 228.0 IgM 116.0 IgE Aspergillus flavus Ab Aspergill fumigatus Ab A. galactomannan Ag A. galactomannan Ag Idx Aspergillus niger Ab 09/19/18 15:57 PT INR Sodium Potassium Chloride Carbon Dioxide Anion Gap BUN Creatinine Est Cr Clr Drug Dosing Est GFR ( Amer) Est GFR (Non-Af Amer) BUN/Creatinine Ratio Glucose Lactate Calcium NT-Pro-B Natriuret Pep [id number]-[id number]-Jifhpviqmmu Pending Procalcitonin A.fumigatus Allerg IgG Pending IgG IgA IgM IgE Pending Aspergillus flavus Ab Pending Aspergill fumigatus Ab Pending A. galactomannan Ag Pending A. galactomannan Ag Idx Pending Aspergillus niger Ab Pending
--- NOTE | 2018-09-20 01:30 | Consultation Report ---
DATE OF CONSULTATION: 09/19/2018 ADDENDUM: I have had a chance to review the records from [facility]. The patient was seen by a fraud manager, Dr. Chago Bennett on 04/06/2018 at [facility] along with AMRITA Sutton with the clinic. The patient had a bout of hemoptysis that lasted less than 24 hours in 03/2018 and the feeling was that the patient's INR was supratherapeutic and this contributed to the hemoptysis which was self limiting. Review of CAT scan at that time by Dr. Bennett showed extensive panlobular emphysema, mild fibrosis, mostly at the right base with traction bronchiectasis and opacification of the right middle lobe and portions of the right upper lobe which could have been secondary to blood or mucoid impaction. As stated in my note, that seems to have significantly improved. The patient has had a history of spontaneous pneumothoraces in the past starting in her youth and I guess it is possible that the patient could have alpha 1 antitrypsin deficiency although her longevity and previous smoking history are noted. She is felt to be hypercoagulable with a past history of pulmonary emboli and there may also simply be a degree of pulmonary hypertension. We will take the liberty of reviewing the patient's previous echocardiogram. She is followed by Dr. Leung and Dr. Nasrin Lima though I do not see an element of congestive heart failure or cardiac decompensation that precipitated this admission and with Chronic Renal Dis.Stage 4, I doubt the efficacy and safety of promoting diuresis. MTDD
--- NOTE | 2018-09-20 01:37 | Consultation Report ---
DATE OF CONSULTATION: 09/19/[address] Hannah. REASON FOR CONSULTATION: COPD exacerbation. HISTORY OF PRESENT ILLNESS: An 83-year-old white female, patient of Dr. Yordy Strange, admitted with acute respiratory failure and hypoxemia. The patient is a former smoker. In addition to being followed by Dr. Strange, has been seen by the MOSA[facility] TECHNICIAN with the pulmonary clinic at [facility], [facility]. 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 The patient was seen at the [facility] pulmonary clinic on 09/07/2018. Her close friend had recently and she was significantly upset. She has been diagnosed with panlobular emphysema and has been on long-term anticoagulation. She has been taking the Trelegy Ellipta inhaler 1 inhalation daily along with a rescue inhaler. She has not been on home O2. She has also been diagnosed with a degree of chronic bronchiectasis. She also has gastroesophageal reflux disease without esophagitis, she is on a PPI. She was seen last in the clinic on 09/18/2018 with increased swelling in the lower extremities and some weight loss of 4 pounds over the past 10 days. She has been extremely weak and dyspneic and states to me that her wind just "cut off from her" and she could not walk ambulating even a few feet in her home without significant symptomatology. Chest x-ray on 09/18/2018 shows normal cardiac silhouette, but changes of severe pulmonary emphysema and focally prominent interstitial opacities in the lateral aspect of the right upper lung, are not changed appreciably from chest x-ray of March 2018 and CAT scan of May 2018. Her sats in the ER were in the mid 80% on 4 liters, which is all new. She currently appears stable, was able to converse with me, but was at rest and notes that even getting up to go to the bathroom makes her extremely symptomatic. Her sputum is occasionally purulent, but no hemoptysis or pleuritic pain is noted. CT review of [facility] records and CT scan of 06/08/2018 shows that previously seen mucoid impaction in the posterior right upper lobe and right middle lobe had improved when compared to the previous CT scan of 04/13/2018. A residual nodular stellate opacity was suggested abutting a traversing vessel on bronchus involving the right middle lobe. This measured 11 x 5 mm. There is also traction bronchiectasis involving the right lower lobe seen along with severe emphysematous changes diffusely. Previous CT scan on 04/13/2018 done as an outpatient showed very prominent opacification of the segmental and subsegmental bronchus involving the right upper lobe as well as the lateral segment of the right middle lobe and clearly bronchiectasis involving the right lung base. For details of past medical history, medications, family and social history, I refer you to current and past record. PHYSICAL EXAMINATION: GENERAL: Reveals a friendly elderly white female appearing stable at rest. VITAL SIGNS: Current blood pressure 148/81, pulse 69 and regular, respiratory rate 16, temperature 36.5, O2 sat 94% on 3 liters. SKIN: Without lesion. HEENT: Atraumatic, normocephalic. PERRLA. LUNGS: Marked hyperresonance with scattered wheeze, right base, and marked prolongation of the expiratory phase of breathing. CARDIAC: Sinus tachycardia. I do not do not appreciate a gallop. ABDOMEN: Soft, protuberant. EXTREMITIES: Trace pedal edema. No clubbing. Peripheral cyanosis. NEUROLOGIC: Intact. OVERALL ASSESSMENT AND PLAN: An 83-year-old with severe end-stage chronic obstructive pulmonary disease, a degree of chronic bronchiectasis involving right lower lobe and previous radiographic evidence of mucoid impaction, but with a persistent stellate lesion with a history of pulmonary emboli and hypercoagulable state, hypercalcemia and en-tachy syndrome, status post pacemaker insertion following syncopal episode, now admitted with progressive and worsening dyspnea and hypoxemia. Most current CT scan was reviewed and compared to the others, which once again showed advanced emphysema with a degree of interstitial fibrotic lung disease. No lobar consolidation. There are numerous foci of irregular airspace nodularity that have increased since 06/08/2018 and give the impression of a superimposed infectious or inflammatory pneumonitis. 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 The patient's white count is 15,000, but is on high-dose steroid, that lab was drawn on admission. No significant eosinophilia noted. BUN 57, creatinine 2.8. Calculated CO2 of 23. Lactate was elevated at 2.3 on admission, now has normalized. ProBNP 872. An 83-year-old with severe chronic obstructive pulmonary disease, now O2 dependent (not previously), currently on steroid therapy receiving nebulizer treatments with Pulmicort b.i.d. and oral doxycycline that includes aerosolized bronchodilator with levalbuterol and ipratropium q.i.d. and q. 4 hours and IV Solu-Medrol 20 mg q. 12 hours. IV Zosyn has been started as well and patient has been continued on her Coumadin therapy. I have reviewed the most recent CT scan and compared it to previous CT scans. I do not see the obvious mucoid impaction that was noted on previous CT scan, most notably from the March 2018 scan. There is a degree of bronchiectasis involving the right lower lobe but also superimposed interstitial lung disease. I am suspicious that these current nodular densities represent inflammatory infectious etiology. Certainly, the patient could have superimposed MICHAEL infection or chronic indolent respiratory infection that has further compromised her or even for that matter an element of allergic bronchopulmonary aspergillosis. I would like to see how patient responds to current pulmonary toilet and we will see the patient on a regular basis with the hospitalist service to make any additional recommendations. TERRY
[2018-09-20] MEDS: PIPERACILLIN/TAZOBACTAM 3.375 GM in DEXTROSE 5% 100 ML IV SCH ×2 (04:57→16:18)
[2018-09-20] MEDS: SODIUM CHLORIDE 0.9% 1000ML 1,000 ML IV SCH (04:59)
[2018-09-20] MEDS: LEVOTHYROXINE SODIUM 88 MCG TABLET PO SCH (05:54)
[2018-09-20] MEDS: methylPREDNISolone 20 MG in SYRINGE 0 ML IV SCH ×2 (05:54→18:24)
[2018-09-20 06:51] LABS: Allen Test Pos (Pos); HCO3 ABG 18 mmol/L (19-24); Oxygen Saturation ABG 91.7 % (90-95); PCO2 ABG 29 mmHg (35-46); PO2 ABG 62 mm/Hg (80-95); pH ABG 7.42 (7.35-7.45)
[2018-09-20 07:06] LABS: Prothrombin Time 45.5 Seconds (9.0-12.0)
[2018-09-20] MEDS: LEVALBUTEROL 1.25MG/0.5ML NEB INH SCH ×4 (07:15→19:18)
[2018-09-20] MEDS: BUDESONIDE 0.5 MG/2 ML VIAL (PULMICORT) INH SCH ×2 (07:15→19:18)
[2018-09-20] MEDS: IPRATROPIUM BROMIDE NEB SOLN 0.02% 2.5 ML VIAL INH SCH ×4 (07:15→19:19)
[2018-09-20 07:24] LABS: BUN Creatinine Ratio 19.3 (10-20); Calcium 9.2 mg/dl (8.5-10.1); Creatinine Clr Calc Pharmacy 16.2 ml/min; Est GFR (African American) 23.3; Est GFR (Non-African American) 20.1
[2018-09-20] MEDS: FOLIC ACID 1 MG TAB PO SCH (09:27)
[2018-09-20] MEDS: BuPROPion SR 150 MG TABCR PO SCH (09:28)
[2018-09-20] MEDS: CYANOCOBALAMIN 500 MCG TABLET (VITAMIN B-12) PO SCH (09:28)
[2018-09-20] MEDS: DOXYCYCLINE HYCLATE 100 MG CAP PO SCH ×2 (09:28→20:21)
[2018-09-20] MEDS: AMLODIPINE BESYLATE 5 MG TAB PO SCH (09:28)
[2018-09-20] MEDS: METOPROLOL SUCC 25MG EXT REL TAB PO SCH (09:28)
--- NOTE | 2018-09-20 11:20 | Hospitalist Progress Note ---
Date of Service September 20, 2018 Assessment & Plan (1) Acute respiratory failure with hypoxia: Former smoker for many years with hx of COPD . Progressive dyspnea over past several weeks, most recently with minimal exertion. Had some benefit with prednisone taper, the symptoms worsened as soon as taper was completed on 09/18/18. Hypoxic with O2 saturations in the 80s in clinic. Oxygen saturation in the ED as low was 77%. Currently requiring 4 L oxygen (None at home) -Etiology of worsening hypoxia - Baseline COPD, developing ILD as per CT scan. History of pulmonary embolism on warfarin therapy with therapeutic INR. Recurrent VTE very unlikely. -CT chest on 09/20/18- Advanced emphysema with evidence of super imposed interstitial/fibrotic lung disease, No consolidation or pleural effusion. Numerous scattered foci of irregular airspace nodularity. Increased from 06/08/18 and may represent a mild super imposed infectious/inflammatory pneumonitis. 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 -S/P Doxycycline in the ED. Added piperacillin/tazobactam for broader coverage on admission. -S/P IV methylprednisolone in the ED; continue methylprednisolone 20 mg IV twice daily. -Pulmonary Medicine consulted- Ordered Legionella Ag, Mycoplasma, Aspergillus, Alpha 1 antitrypsin, Immunoglobulin. Patient refused Bronchoscopy offered by Pulmonary. -Appreciate pulmonary inputs (2) COPD (chronic obstructive pulmonary disease): -As discussed above. -Not on oxygen at home. Now on 4 L oxygen (3) Elevated lactic acid level: Serum lactate 2.46, downto 2.0. -Not septic. -Leukocytosis probably secondary to prednisone therapy that was just completed on 09/18/18 -Elevated serum lactate most likely secondary to hypoxia. -Monitor WBC trend (4) History of pulmonary embolism: History of pulmonary embolism. -Hypercoagulable state secondary to lupus anticoagulant and heterozygous MTHFR mutation. -Continue anticoagulation with warfarin. -INR 5.0 today. Hold coumadin today (5) Paroxysmal atrial fibrillation: Currently in atrial paced rhythm. -Continue atenolol. -Continue anticoagulation with warfarin. (6) Stage 4 chronic kidney disease: CKD 4. Creatinine in March range between 2.16 and 2.93. -Creatinine at time of admission 2.98, trending down. -Received IV fluids. Holding furosemide. -Follow. (7) Cerebrovascular disease: -On warfarin. (8) GERD (gastroesophageal reflux disease): -Continue ranitidine. (9) Advanced directives, counseling/discussion: Discussed with patient and her family. Patient indicates that she has a living well. She would like resuscitation attempted in the event of a cardiopulmonary arrest if there is a reasonable chance of meaningful recovery. However, she would not want extraordinary measures undertaken or continued if prognosis is grim. CODE STATUS at this time is full resuscitation. (10) DVT prophylaxis: -On chronic warfarin therapy. (11) Discharge planning issues: Medical mx in progress. Anticipated discharge to home. Internal Medicine follow-up with Dr. Strange. Pulmonary follow-up with [facility]. OK to transfer to med surg Subjective Patient says she feels fine but has not noticed much difference in her SOB. Dry cough, not able to bring up much sputum. No fever, chills, chest pain, t ightness, leg swelling On 4 L oxygen Physical Exam Physical Exam: GENERAL- AAOX3, No acute distress NECK- Supple, no JVD LUNGS- Air entry bilaterally equal. coarse breath sounds + rales + at bases HEART- Regular rate and rhythm. No murmurs ABDOMEN- Soft, non tender, non distended, Bowel sounds heard. EXTREMITIES- Good peripheral pulses, no edema Results & Data Vital Signs (Past 12 Hours) Vital Signs Temp Pulse Pulse Resp BP Pulse Ox 09/20/18 08:00 62 09/20/18 07:39 36.8 C 76 27 H 138/67 86 L 09/20/18 07:15 64 18 91 09/20/18 02:32 36.6 C 84 22 134/64 91
[2018-09-20] MEDS ORDERED: WARFARIN SOD 2 MG TAB PO SCH (16:00)
[2018-09-20] MEDS ORDERED: WARFARIN SOD 1 MG TAB PO SCH (16:00)
--- NOTE | 2018-09-20 17:52 | Progress Note ---
DATE: 09/20/2018 TIME: 0900. Chart reviewed, patient examined. SUBJECTIVE: The patient has minimal cough. Still feels dyspneic when she walks or ambulates to the bathroom. For the most part, the cough is nonproductive. As stated earlier in my consultation, the patient has a significant smoking history in the past with progressive dyspnea that became quite problematic several days prior to admission. She has responded to prednisone taper in the past, but this time in the ER, was found to be quite hypoxic on room air. I reviewed her serial CAT scans and most of the changes are consistent with emphysema and interstitial fibrotic disease with traction bronchiectasis involving the right lower lobe and numerous foci of irregular airspace nodularity that has increased since 06/08/2018 and certainly look inflammatory or infectious. IV Zosyn has been added to doxycycline along with IV methylprednisolone. Labs have been ordered and I discussed her care with Dr. Hannah this morning. OBJECTIVE: VITAL SIGNS: Her blood pressure is 141/75, pulse 71 and regular, respiratory rate 16, temperature 36.8, O2 sat 93% on 3 liters. SKIN: Warm and dry. HEENT: Atraumatic, normocephalic. PERRLA. LUNGS: Coarse rales that has sound Velcro in nature bilaterally, right greater than left with scattered wheeze. CARDIAC: Regular rhythm. I do not appreciate gallop. ABDOMEN: Soft, protuberant. EXTREMITIES: Trace pedal edema. No clubbing. Peripheral cyanosis. NEUROLOGIC: Intact. No lateralizing signs. LABORATORY DATA: White count 15,000, H and H 12.8 and 38.8. ABGs done on 3 liters: pH 7.42, pCO2 of 29, pO2 of 62. BUN 43, creatinine 2.2. Quantitative immunoglobulin, IgA is normal and other antibody titers pending. Blood cultures are negative. OVERALL ASSESSMENT: An 83-year-old with severe emphysema/chronic obstructive pulmonary disease with a component of interstitial lung disease with fibrotic changes and traction bronchiectasis could be consistent with UIP/IPF and with probable superimposed infectious or inflammatory process exemplified by increased nodularity in the lung, although one cannot rule out lymphohematogenous metastasis from an unknown primary or even a primary in the lung or an atypical mycoplasma infection. (MICHAEL/MAC may be contributing). Previous CT scan of 03/2018 showed a degree of mucoid impaction that seems to have dissipated and improved. The patient is a poor risk for bronchoscopy and BAL at this juncture, but can discuss the possibility of being more aggressive diagnostically if the patient does not respond to current therapy. I do not think there is an element of CHF or fluid overload and with the patient's diminished creatinine clearance, I would not recommend increasing her diuresis and victor hugo her intravascular volume any further. We will continue to follow with you. TAID
[2018-09-21] MEDS: PIPERACILLIN/TAZOBACTAM 3.375 GM in DEXTROSE 5% 100 ML IV SCH ×2 (05:00→16:30)
[2018-09-21] MEDS: LEVOTHYROXINE SODIUM 88 MCG TABLET PO SCH (05:20)
[2018-09-21] MEDS: methylPREDNISolone 20 MG in SYRINGE 0 ML IV SCH (05:20)
[2018-09-21] MEDS: IPRATROPIUM BROMIDE NEB SOLN 0.02% 2.5 ML VIAL INH SCH ×4 (07:48→19:58)
[2018-09-21] MEDS: BUDESONIDE 0.5 MG/2 ML VIAL (PULMICORT) INH SCH ×2 (07:48→19:58)
[2018-09-21] MEDS: LEVALBUTEROL 1.25MG/0.5ML NEB INH SCH ×4 (07:49→19:59)
[2018-09-21] MEDS: FOLIC ACID 1 MG TAB PO SCH (08:02)
[2018-09-21] MEDS: DOXYCYCLINE HYCLATE 100 MG CAP PO SCH ×2 (08:02→21:24)
[2018-09-21] MEDS: METOPROLOL SUCC 25MG EXT REL TAB PO SCH (08:03)
[2018-09-21] MEDS: AMLODIPINE BESYLATE 5 MG TAB PO SCH (08:03)
[2018-09-21] MEDS: CYANOCOBALAMIN 500 MCG TABLET (VITAMIN B-12) PO SCH (08:03)
[2018-09-21] MEDS: BuPROPion SR 150 MG TABCR PO SCH (08:03)
[2018-09-21 08:08] LABS: Hematocrit (blood only) 33.7 % (37-47); Hemoglobin 10.8 g/dL (12.0-16.0); Immature Granulocytes # (auto) 0.04 K/uL (0.00-0.02); Immature Granulocytes % (auto) 0.3 %; Lymphocytes % (auto) 2.2 %; Mean Corpuscular Volume 87.5 fL (80-100); Mean Platelet Volume 10.6 fL (7.4-10.4); Monocytes # (auto) 0.42 K/uL (0.11-0.59); Neutrophils % (auto) 94.5 %; Platelet Count 203 K/uL (130-400); RDW Coefficient of Variation 16.4 % (11.5-14.5); RDW Standard Deviation 52.2 fL (36.4-46.3); Red Blood Count 3.85 M/uL (4.2-5.4); White Blood Count 13.86 K/uL (4.8-10.8)
[2018-09-21 08:27] LABS: Prothrombin Time 41.9 Seconds (9.0-12.0)
[2018-09-21 08:30] LABS: INR 4.6 (0.9-1.1)
[2018-09-21 08:42] LABS: BUN Creatinine Ratio 19.3 (10-20); Calcium 10.4 mg/dl (8.5-10.1); Creatinine Clr Calc Pharmacy 16.6 ml/min; Est GFR (African American) 23.9; Est GFR (Non-African American) 20.7; Potassium 4.3 mmol/L (3.5-5.1)
--- NOTE | 2018-09-21 12:03 | Progress Note ---
DATE: 09/21/2018 PULMONARY PROGRESS NOTE TIME: 11:00 a.m. SUBJECTIVE: The patient continues to be short of breath with minimal exertion. The patient relates that she had some disorientation and confusion this morning. She told me it was about 3:30 a.m., but the nursing staff past on that it was 7:00 a.m. She did reorient quickly. While going to the bathroom even with her oxygen in place, her saturation quickly went down into the low 80s as per nursing. She denies chest pain. She has very little cough. She is not bringing up sputum. Her appetite has been decreased. She states she has lost weight. The patient's was present during this evaluation. OBJECTIVE: GENERAL: The patient was comfortable at rest. She was cooperative, alert and oriented. VITAL SIGNS: Weight is listed as 53 kilograms with a BMI of 20.7. Cardiac rate is 74 per minute. The rhythm is regular. Blood pressure 169/65. LUNGS: Respiratory rate was 24 breaths per minute at the time of my exam. Breath sounds are diminished. Rales are heard both bases. Saturation is 90% on 3 liters. EXTREMITIES: Showed no cyanosis, clubbing or edema. ABDOMEN: Soft. Bowel sounds were present. LABORATORY DATA: White count today is 13.86. Hemoglobin 10.8. Platelets 203,000. The hemoglobin is decreased from 3 days ago when it was 12.8. INR today is elevated at 4.6. She has been on Coumadin. She did have a blood gas yesterday September 20. On 3 liters, the pH was 7.42 with a pCO2 of 29 and a pO2 of 62. This would reflect some degree of hyperventilation. Electrolytes show sodium 146, potassium 4.3, chloride 118, bicarbonate 21. BUN 42 with a creatinine 2.16. Blood sugar this morning 131. Calcium today 10.4. Calcium from yesterday was 9.2 and from September 19 was 9.6. Calcium on September 18, however, was 10.8. It appears the calcium has been somewhat chronically elevated. On 03/28/2018, the calcium was slightly elevated at 10.3. Serum IgG was normal at 894. IgA is normal at 228. IgM is normal at 116. IgE is still pending. I did review the patient's CAT scan of the chest. This shows very extensive emphysema. Pacemaker was noted. There is superimposed interstitial lung disease especially at the bases. There are some scattered nodular airspace opacities. IMPRESSION: 1. Acute respiratory failure with hypoxia. 2. Severe emphysema. 3. Chronic obstructive pulmonary disease with exacerbation. 4. Hypercalcemia, undetermined etiology. COMMENTS: The patient does not feel like she is doing significantly better. At most, she would be slightly better. She has been on methylprednisolone 20 mg IV q. 12 hours. In light of the fact she has not improved, would suggest increasing the steroids to 40 q. 12. Antibiotics include Zosyn and doxycycline. I am not certain she has an acute infection, but I would continue the antibiotics. She is on levalbuterol and ipratropium nebulizer treatments 4 times per day. Her CAT scan would look appropriate for her symptoms. The confusing part is that this is all fairly acute. She indicates that a month or two ago, she was much less short of breath. The risk of her having pulmonary emboli would seem low in light of the fact she has been on warfarin continuously with adequate levels. She still seems to be fairly acutely ill.
[2018-09-21] MEDS: methylPREDNISolone 40 MG in SYRINGE 0 ML IV SCH ×2 (13:07→23:34)
--- NOTE | 2018-09-21 14:02 | Hospitalist Progress Note ---
Date of Service September 21, 2018 Assessment & Plan (1) Acute respiratory failure with hypoxia: Former smoker for many years with hx of COPD . Progressive dyspnea over past several weeks, most recently with minimal exertion. Had some benefit with prednisone taper, the symptoms worsened as soon as taper was completed on 09/18/18. Hypoxic with O2 saturations in the 80s in clinic. Oxygen saturation in the ED as low was 77%. Currently requiring 4 L oxygen (None at home) -Etiology of worsening hypoxia - Baseline COPD, developing ILD as per CT scan. History of pulmonary embolism on warfarin therapy with therapeutic INR. Recurrent VTE very unlikely. -CT chest on 09/20/18- Advanced emphysema with evidence of super imposed interstitial/fibrotic lung disease, No consolidation or pleural effusion. Numerous scattered foci of irregular airspace nodularity. Increased from 06/08/18 and may represent a mild super imposed infectious/inflammatory pneumonitis. 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 -S/P Doxycycline in the ED. Added piperacillin/tazobactam for broader coverage on admission. -On IV Solu-Medrol 20 mg twice daily --> Increased to 40 mg q 12 hours by pulmonary today -Pulmonary Medicine consulted- Ordered Legionella Ag, Mycoplasma, Aspergillus, Alpha 1 antitrypsin, Immunoglobulin. Patient refused Bronchoscopy -Appreciate pulmonary inputs (2) COPD (chronic obstructive pulmonary disease): -As discussed above. -Not on oxygen at home. Now on 4 L oxygen (3) Elevated lactic acid level: Serum lactate 2.46, downto 2.0. -Not septic. -Leukocytosis probably secondary to prednisone therapy that was just completed on 09/18/18- trending down -Elevated serum lactate most likely secondary to hypoxia. -Monitor WBC trend (4) History of pulmonary embolism: History of pulmonary embolism. -Hypercoagulable state secondary to lupus anticoagulant and heterozygous MTHFR mutation. -Continue anticoagulation with warfarin. -INR 4.6 today. Hold coumadin today (5) Paroxysmal atrial fibrillation: Currently in atrial paced rhythm. -Continue atenolol. -Continue anticoagulation with warfarin. (6) Stage 4 chronic kidney disease: CKD 4. Creatinine in March range between 2.16 and 2.93. -Creatinine at time of admission 2.98, trending down. -Received IV fluids. Holding furosemide. -Monitor (7) Cerebrovascular disease: -On warfarin. (8) GERD (gastroesophageal reflux disease): -Continue ranitidine. (9) Advanced directives, counseling/discussion: Discussed with patient and her family. Patient indicates that she has a living well. She would like resuscitation attempted in the event of a cardiopulmonary arrest if there is a reasonable chance of meaningful recovery. However, she would not want extraordinary measures undertaken or continued if prognosis is grim. CODE STATUS at this time is full resuscitation. (10) DVT prophylaxis: -On chronic warfarin therapy. (11) Discharge planning issues: Medical mx in progress. Anticipated discharge to home. Internal Medicine follow-up with Dr. Strange. Pulmonary follow-up with [facility]. Subjective Patient says she feels fine but has not noticed much difference in her SOB. Dry cough, not able to bring up much sputum. No fever, chills, chest pain, tightness, leg swelling Her oxygen saturation dropped further on 4 L when she ambulated Physical Exam Physical Exam: GENERAL- AAOX3, No acute distress NECK- Supple, no JVD LUNGS- Air entry bilaterally equal. coarse breath sounds + rales + at bases HEART- Regular rate and rhythm. No murmurs ABDOMEN- Soft, non tender, non distended, Bowel sounds heard. EXTREMITIES- Good peripheral pulses, no edema Results & Data Vital Signs (Past 12 Hours) Vital Signs Temp Pulse Resp BP Pulse Ox 09/21/18 11:20 67 18 92 09/21/18 07:49 74 20 89 L 09/21/18 07:17 36.8 C 81 18 169/65 H 96
[2018-09-22] MEDS: PIPERACILLIN/TAZOBACTAM 3.375 GM in DEXTROSE 5% 100 ML IV SCH (03:47)
[2018-09-22] MEDS: LEVOTHYROXINE SODIUM 88 MCG TABLET PO SCH (05:34)
[2018-09-22] MEDS: BUDESONIDE 0.5 MG/2 ML VIAL (PULMICORT) INH SCH ×2 (07:03→19:31)
[2018-09-22] MEDS: LEVALBUTEROL 1.25MG/0.5ML NEB INH SCH ×4 (07:03→19:31)
[2018-09-22] MEDS: IPRATROPIUM BROMIDE NEB SOLN 0.02% 2.5 ML VIAL INH SCH ×4 (07:03→19:31)
[2018-09-22 07:13] LABS: Prothrombin Time 34.5 Seconds (9.0-12.0)
[2018-09-22 07:14] LABS: INR 3.7 (0.9-1.1)
[2018-09-22 07:24] LABS: BUN Creatinine Ratio 21.1 (10-20); Calcium 10.4 mg/dl (8.5-10.1); Creatinine Clr Calc Pharmacy 16.5 ml/min; Est GFR (African American) 23.7; Est GFR (Non-African American) 20.4; Potassium 4.9 mmol/L (3.5-5.1)
[2018-09-22] MEDS: DOXYCYCLINE HYCLATE 100 MG CAP PO SCH ×2 (08:46→20:27)
[2018-09-22] MEDS: METOPROLOL SUCC 25MG EXT REL TAB PO SCH (08:46)
[2018-09-22] MEDS: BuPROPion SR 150 MG TABCR PO SCH (08:46)
[2018-09-22] MEDS: CYANOCOBALAMIN 500 MCG TABLET (VITAMIN B-12) PO SCH (08:46)
[2018-09-22] MEDS: AMLODIPINE BESYLATE 5 MG TAB PO SCH (08:46)
[2018-09-22] MEDS: FOLIC ACID 1 MG TAB PO SCH (08:47)
--- NOTE | 2018-09-22 12:49 | Hospitalist Progress Note ---
Date of Service September 22, 2018 Assessment & Plan (1) Acute respiratory failure with hypoxia: Former smoker for many years with hx of COPD . Progressive dyspnea over past several weeks, most recently with minimal exertion. Had some benefit with prednisone taper, the symptoms worsened as soon as taper was completed on 09/18/18. Hypoxic with O2 saturations in the 80s in clinic. Oxygen saturation in the ED as low was 77%. Currently requiring 4 L oxygen (None at home) -Etiology of worsening hypoxia - Baseline COPD, developing ILD as per CT scan. History of pulmonary embolism on warfarin therapy with therapeutic INR. Recurrent VTE very unlikely. -CT chest on 09/20/18- Advanced emphysema with evidence of super imposed interstitial/fibrotic lung disease, No consolidation or pleural effusion. Numerous scattered foci of irregular airspace nodularity. Increased from 06/08/18 and may represent a mild super imposed infectious/inflammatory pneumonitis. 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 -S/P Doxycycline in the ED. Added piperacillin/tazobactam for broader coverage on admission. -On IV Solu-Medrol 20 mg twice daily --> Increased to 40 mg q 12 hours by pulmonary on 09/21/28 (not noticed much difference clinically) -Pulmonary Medicine consulted- Ordered Legionella Ag- Neg, Mycoplasma, Aspergillus, Alpha 1 antitrypsin, Immunoglobulin - Pending. Patient refused Bronchoscopy -Appreciate pulmonary inputs -2 Step oxygen ordered (2) COPD (chronic obstructive pulmonary disease): -As discussed above. -Not on oxygen at home. Now on 4 L oxygen -2 step ordered as will need oxygen on discharge (3) Elevated lactic acid level: Serum lactate 2.46, downto 2.0. -Not septic. -Leukocytosis probably secondary to prednisone therapy that was just completed on 09/18/18- trending down -Elevated serum lactate most likely secondary to hypoxia. (4) History of pulmonary embolism: History of pulmonary embolism. -Hypercoagulable state secondary to lupus anticoagulant and heterozygous MTHFR mutation. -Continue anticoagulation with warfarin. -INR 3.7 today. Hold coumadin today (5) Paroxysmal atrial fibrillation: Currently in atrial paced rhythm. -Continue atenolol. -Continue anticoagulation with warfarin. (6) Stage 4 chronic kidney disease: CKD 4 Creatinine in March range between 2.16 and 2.93. -Creatinine at time of admission 2.98, trending down. -Received IV fluids. Holding furosemide. -Monitor (7) Cerebrovascular disease: -On warfarin. (8) GERD (gastroesophageal reflux disease): -Continue ranitidine. (9) Advanced directives, counseling/discussion: Discussed with patient and her family. Patient indicates that she has a living well. She would like resuscitation attempted in the event of a cardiopulmonary arrest if there is a reasonable chance of meaningful recovery. However, she would not want extraordinary measures undertaken or continued if prognosis is grim. CODE STATUS at this time is full resuscitation. (10) DVT prophylaxis: -On chronic warfarin therapy. (11) Discharge planning issues: Medical mx in progress. Anticipated discharge to home. Will need home services, oxygen set up. Internal Medicine follow-up with Dr. Strange. Pulmonary follow-up with [facility] Pulmonary Medicine. Updated son by bedside. Called to updated- couldnt contact. Subjective Patient says she feels fine but has not noticed much difference in her SOB. Dry cough, not able to bring up much sputum. No fever, chills, chest pain, tightness, leg swelling Her oxygen saturation dropped further on 4 L when she ambulated Physical Exam Physical Exam: GENERAL- AAOX3, No acute distress NECK- Supple, no JVD LUNGS- Air entry bilaterally equal. coarse breath sounds + rales + at bases HEART- Regular rate and rhythm. No murmurs ABDOMEN- Soft, non tender, non distended, Bowel sounds heard. EXTREMITIES- Good peripheral pulses, no edema Results & Data Vital Signs (Past 12 Hours) Vital Signs Temp Pulse Resp BP Pulse Ox 09/22/18 11:43 76 16 91 09/22/18 07:31 36.4 C L 72 21 160/74 H 91 09/22/18 07:03 72 16 91
[2018-09-22] MEDS: methylPREDNISolone 40 MG in SYRINGE 0 ML IV SCH (14:06)
--- NOTE | 2018-09-22 17:56 | Progress Note ---
DATE: 09/22/2018 TIME: 5:05 p.m. SUBJECTIVE: The patient is still short of breath. She thinks she feels a little better today. Yesterday, the methylprednisolone was increased somewhat. Her son is with her during this evaluation. The patient has no specific complaints. She is not coughing. OBJECTIVE: GENERAL: The patient was comfortable. VITAL SIGNS: The patient is afebrile. Temperature 36.3. CARDIOVASCULAR: Heart rate 81 per minute. Rhythm regular. Blood pressure 140/64. RESPIRATORY: Lung agustin revealed decreased breath sounds with dry rales posteriorly bilaterally. No active wheezing heard. Saturation 93% on 4 liters. EXTREMITIES: Showed no cyanosis, clubbing or edema. LABORATORY DATA: Electrolytes show sodium 146, potassium 4.9, chloride 119, bicarb 21. BUN 46 with a creatinine 2.18. Calcium level today 10.4. IMPRESSIONS: 1. Acute respiratory failure with hypoxia. 2. Chronic obstructive pulmonary disease exacerbation. 3. Emphysema. 4. Hypercalcemia. I was able to review pulmonary functions done through [facility] on 06/22/2018. This showed a moderate obstructive pattern, but with a diffusion capacity severely reduced to 30%. It would not be too unexpected that this patient might have hypoxia based upon that. She seems to be doing fairly stable. Would perhaps give her the methylprednisolone 40 q. 12 at least until tomorrow and then perhaps cut back or change to prednisone. She remains on her nebulizer treatments, which she thinks helps somewhat. Would try to ambulate her with physical therapy if at all possible. She did have a PT evaluation today.
[2018-09-23] MEDS: methylPREDNISolone 40 MG in SYRINGE 0 ML IV SCH (00:17)
[2018-09-23] MEDS: LEVOTHYROXINE SODIUM 88 MCG TABLET PO SCH (06:14)
[2018-09-23 07:07] LABS: Creatinine Clr Calc Pharmacy 17.8 ml/min; Est GFR (Non-African American) 22.4
[2018-09-23] MEDS: AMLODIPINE BESYLATE 5 MG TAB PO SCH (07:50)
[2018-09-23] MEDS: DOXYCYCLINE HYCLATE 100 MG CAP PO SCH ×2 (07:51→20:10)
[2018-09-23] MEDS: BuPROPion SR 150 MG TABCR PO SCH (07:51)
[2018-09-23] MEDS: METOPROLOL SUCC 25MG EXT REL TAB PO SCH (07:51)
[2018-09-23] MEDS: CYANOCOBALAMIN 500 MCG TABLET (VITAMIN B-12) PO SCH (07:51)
[2018-09-23] MEDS: FOLIC ACID 1 MG TAB PO SCH (07:52)
[2018-09-23] MEDS: IPRATROPIUM BROMIDE NEB SOLN 0.02% 2.5 ML VIAL INH SCH ×4 (08:03→20:54)
[2018-09-23] MEDS: LEVALBUTEROL 1.25MG/0.5ML NEB INH SCH ×4 (08:03→20:54)
[2018-09-23] MEDS: BUDESONIDE 0.5 MG/2 ML VIAL (PULMICORT) INH SCH ×2 (08:04→20:54)
--- NOTE | 2018-09-23 10:10 | Progress Note ---
DATE: 09/23/2018 TIME: 9:10 a.m. SUBJECTIVE: The patient states she had a good night. There were less disturbances to her sleep for labs and other interventions. Her breathing has been fairly comfortable. She does state that she went to the restroom this morning with oxygen on, but her saturations went down to 76% while she was on 3 liters. Her saturation recovered. However, she states she does not recover as quickly as she used to. At the present time, she feels fine. She is not coughing. OBJECTIVE: GENERAL: The patient was comfortable at rest. VITAL SIGNS: Temperature 36.9. No fever was recorded. CARDIAC: Heart rate 91. Rhythm regular. Blood pressure 159/68. LUNGS: Lung agustin reveal dry rales posteriorly bilaterally. Breath sounds were decreased. No active wheeze heard. Respiratory rate at the time of my exam was 20, but earlier today had been 26. EXTREMITIES: Showed no cyanosis, clubbing or edema. LABORATORY DATA: Creatinine today is 2.02. Yesterday was 2.18. IMPRESSION: 1. Acute respiratory failure with hypoxia. 2. Chronic obstructive pulmonary disease exacerbation. 3. Severe emphysema. 4. Hypercalcemia. COMMENTS AND RECOMMENDATIONS: Would change the methylprednisolone to prednisone at 40 mg daily. Would continue with the nebulizer treatments. She currently is on levalbuterol and ipratropium. 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 If the medications for the nebulizer is not ordered that should be ordered through [facility], which I believe will be able to build differently such that it will not affect her as much. We will see the patient again if requested.
--- NOTE | 2018-09-23 11:36 | Hospitalist Progress Note ---
Date of Service September 23, 2018 Assessment & Plan (1) Acute respiratory failure with hypoxia: Former smoker for many years with hx of COPD . Progressive dyspnea over past several weeks, most recently with minimal exertion. Had some benefit with prednisone taper, the symptoms worsened as soon as taper was completed on 09/18/18. Hypoxic with O2 saturations in the 80s in clinic. Oxygen saturation in the ED as low was 77%. Currently requiring 4 L oxygen, drops when she ambulates (None at home) -Etiology of worsening hypoxia - Baseline COPD, developing ILD as per CT scan. History of pulmonary embolism on warfarin therapy with therapeutic INR. Recurrent VTE very unlikely. -CT chest on 09/20/18- Advanced emphysema with evidence of super imposed interstitial/fibrotic lung disease, No consolidation or pleural effusion. Numerous scattered foci of irregular airspace nodularity. Increased from 06/08/18 and may represent a mild super imposed infectious/inflammatory pneumonitis. 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 -S/P Doxycycline in the ED. Added piperacillin/tazobactam for broader coverage on admission. -On IV Solu-Medrol 20 mg twice daily --> Increased to 40 mg q 12 hours by pulmonary on 09/21/18--> today transition to po prednisone 40 mg -Pulmonary Medicine consulted- Ordered Legionella Ag- Neg, Mycoplasma, Aspergillus, Alpha 1 antitrypsin, Immunoglobulin - IgE pending, rest normal. Patient refused Bronchoscopy -Appreciate pulmonary inputs (2) COPD (chronic obstructive pulmonary disease): -As discussed above. -Not on oxygen at home. Now on 4 L oxygen -2 step ordered as will need oxygen on discharge (3) Elevated lactic acid level: Serum lactate 2.46, downto 2.0. -Not septic. -Leukocytosis probably secondary to prednisone therapy that was just completed on 09/18/18- trending down -Elevated serum lactate most likely secondary to hypoxia. (4) History of pulmonary embolism: History of pulmonary embolism. -Hypercoagulable state secondary to lupus anticoagulant and heterozygous MTHFR mutation. -Continue anticoagulation with warfarin. -INR 3.7 today. Hold coumadin today (5) Paroxysmal atrial fibrillation: Currently in atrial paced rhythm. -Continue atenolol. -Continue anticoagulation with warfarin. (6) Stage 4 chronic kidney disease: CKD 4 Creatinine in March range between 2.16 and 2.93. -Creatinine at time of admission 2.98, trending down to 2.08. -Received IV fluids. Holding furosemide. -Monitor (7) Cerebrovascular disease: -On warfarin. (8) GERD (gastroesophageal reflux disease): -Continue ranitidine. (9) Advanced directives, counseling/discussion: Discussed with patient and her family. Patient indicates that she has a living well. She would like resuscitation attempted in the event of a cardiopulmonary arrest if there is a reasonable chance of meaningful recovery. However, she would not want extraordinary measures undertaken or continued if prognosis is grim. CODE STATUS at this time is full resuscitation. (10) DVT prophylaxis: -On chronic warfarin therapy. (11) Discharge planning issues: Need to evaluate oxygen need for home PT Will need stair slide for home as her bedroom is on second floor. Discussed with and updated him about lifestyle changes given new baseline with chronic shortness of breath. Internal Medicine follow-up with Dr. Strange. Pulmonary follow-up with [facility] Pulmonary Medicine. Updated son by bedside yesterday Discussed case with pulmonary. Likely discharge tomorrow morning Subjective Patient says she feels fine but has noticed slight improvement in the shortness of breath Dry cough, not able to bring up much sputum. No fever, chills, chest pain, tightness, leg swelling Requiring 4 L of oxygen at rest, drops when she ambulates. Physical Exam Physical Exam: GENERAL- AAOX3, No acute distress NECK- Supple, no JVD LUNGS- Air entry bilaterally equal. coarse breath sounds + rales + at bases HEART- Regular rate and rhythm. No murmurs ABDOMEN- Soft, non tender, non distended, Bowel sounds heard. EXTREMITIES- Good peripheral pulses, no edema Results & Data Vital Signs (Past 12 Hours) Vital Signs Temp Pulse Resp BP Pulse Ox 09/23/18 11:28 66 18 85 L 09/23/18 08:04 91 H 26 H 76 L 09/23/18 07:23 36.9 C 78 16 159/68 H 93
[2018-09-23 12:11] LABS: INR 2.1 (0.9-1.1); Prothrombin Time 20.1 Seconds (9.0-12.0)
[2018-09-23] MEDS: WARFARIN SOD 2 MG TAB PO SCH (15:51)
[2018-09-24] MEDS ORDERED: IPRATROPIUM BROMIDE NEB SOLN 0.02% 2.5 ML VIAL INH SCH
[2018-09-24] MEDS: LEVOTHYROXINE SODIUM 88 MCG TABLET PO SCH (05:49)
[2018-09-24 06:36] LABS: INR 2.1 (0.9-1.1); Prothrombin Time 20.1 Seconds (9.0-12.0)
[2018-09-24] MEDS: LEVALBUTEROL 1.25MG/0.5ML NEB INH SCH ×3 (07:00→17:09)
[2018-09-24] MEDS: BUDESONIDE 0.5 MG/2 ML VIAL (PULMICORT) INH SCH (07:00)
[2018-09-24] MEDS: IPRATROPIUM BROMIDE NEB SOLN 0.02% 2.5 ML VIAL INH SCH ×3 (07:00→17:09)
[2018-09-24 07:02] LABS: Creatinine Clr Calc Pharmacy 18.9 ml/min; Est GFR (Non-African American) 24.1
[2018-09-24] MEDS: METOPROLOL SUCC 25MG EXT REL TAB PO SCH (07:09)
[2018-09-24] MEDS: CYANOCOBALAMIN 500 MCG TABLET (VITAMIN B-12) PO SCH (07:09)
[2018-09-24] MEDS: BuPROPion SR 150 MG TABCR PO SCH (07:09)
[2018-09-24] MEDS: AMLODIPINE BESYLATE 5 MG TAB PO SCH (07:09)
[2018-09-24] MEDS: FOLIC ACID 1 MG TAB PO SCH (07:10)
[2018-09-24] MEDS: DOXYCYCLINE HYCLATE 100 MG CAP PO SCH (07:10)
[2018-09-24] MEDS ORDERED: predniSONE 20 MG TAB PO SCH (09:00)
[2018-09-24 11:58] LABS: Legionella pneumoph IgM, IFA <1:256 TITER; Mycoplasma pneumoniae Ab, IgG 2.32 (<=0.90); Mycoplasma pneumoniae Ab, IgM 126 U/mL (<770)
--- NOTE | 2018-09-24 12:48 | Hospitalist Progress Note ---
Date of Service September 24, 2018 Assessment & Plan (1) Acute respiratory failure with hypoxia: Former smoker for many years with hx of COPD . Progressive dyspnea over past several weeks, most recently with minimal exertion. Had some benefit with prednisone taper, the symptoms worsened as soon as taper was completed on 09/18/18. Hypoxic with O2 saturations in the 80s in clinic. Oxygen saturation in the ED as low was 77%. Currently requiring 4 L oxygen, 6 L on ambulation (Per 2 step)--> Unable to wean her down in spite of rx with Nebs QID, IV steroids f/b prednisone f/b restarting IV steroids and now on PO prednisone. -Probably progressive disease with new baseline - Advanced Emphysema, some bronchiectasis as per pulm, Developing fibrosis per CT scan. -D/D considered- Pneumonia, PE unlikely given supra therapeutic INR. -Work up- CT chest on 09/20/18- Advanced emphysema with evidence of super imposed interstitial/fibrotic lung disease, No consolidation or pleural effusion. Numerous scattered foci of irregular airspace nodularity. Increased from 06/08/18 and may represent a mild super imposed infectious/inflammatory pneumonitis. 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 -S/P Doxycycline and Zosyn--> Now on Doxycycline (received for 6 days total)- no more on dc -S/P IV Solumedrol- transitioned twice to IV during the stay - not seen much improvement -Pulmonary Medicine consulted- Legionella Ag- Neg, Mycoplasma- Ig G +ve but Ig M -ve, Aspergillus, Alpha 1 antitrypsin, Immunoglobulin - IgE pending, rest normal. 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 HOME REGIMEN: Continue with Trelegy Ellipta, Pulmicort BID (Not sure if she takes it- pulm needs to look into this- continue for now per pulm), Nebs BID and PRN -Counseling about rescue nebs/inhaler vs maintenance rx done at length, lifestyle modifications to adjust according to new baseline done.. -Answered all family questions -Needs close follow up with pulmonary -Needs stair slide as bedroom on second floor (PCP to work on this) (2) COPD (chronic obstructive pulmonary disease): ADVANCED EMPHYSEMA -As discussed above. -Not on oxygen at home. Now on 4 L oxygen at rest, 6 L on ambulation per 2 step -Follow up with Pulmonary -Continue mx as above (3) Elevated lactic acid level: Serum lactate 2.46, downto 2.0. -Not septic. -Leukocytosis probably secondary to prednisone therapy that was just completed on 09/18/18- trending down -Elevated serum lactate most likely secondary to hypoxia. (4) History of pulmonary embolism: History of pulmonary embolism. -Hypercoagulable state secondary to lupus anticoagulant and heterozygous MTHFR mutation. -Continue anticoagulation with warfarin. -INR supratherapeutic on admission. Now on 2.1. -Continue prior to home coumadin dose (5) Paroxysmal atrial fibrillation: Currently in atrial paced rhythm. -Continue atenolol. -Continue anticoagulation with warfarin. (6) Stage 4 chronic kidney disease: CKD 4 Creatinine in March range between 2.16 and 2.93. -Creatinine at time of admission 2.98, trending down to 2.08. -Received IV fluids. Holding furosemide--> Ok to restart on discharge. -Monitor (7) Cerebrovascular disease: -On warfarin. (8) GERD (gastroesophageal reflux disease): -Continue ranitidine. (9) Advanced directives, counseling/discussion: Discussed with patient and her family. Patient indicates that she has a living well. She would like resuscitation attempted in the event of a cardiopulmonary arrest if there is a reasonable chance of meaningful recovery. However, she would not want extraordinary measures undertaken or continued if prognosis is grim. CODE STATUS at this time is full resuscitation -Counseling about rescue nebs/inhaler vs maintenance rx done at length, lifestyle modifications to adjust according to new baseline done.. -Answered all family questions (10) DVT prophylaxis: -On chronic warfarin therapy. (11) Discharge planning issues: Oxygen arrangements to be made Internal Medicine follow-up with Dr. Strange. Pulmonary follow-up with [facility] Pulmonary Medicine. Updated family- , son by bedside Eager to be discharged Ok to discharge today Needs stair slide as bedroom on second floor (PCP to work on this). Subjective Patient says she doesn't feel a difference in her breathing. Coughing a little more but not bringing up much. No fever, chills, chest pain, tightness, leg swelling Requiring 4 L at rest, 6 L on ambulation Physical Exam Physical Exam: GENERAL- AAOX3, No acute distress NECK- Supple, no JVD LUNGS- Air entry bilaterally DECREASED. rales at bases, no wheezing HEART- Regular rate and rhythm. No murmurs ABDOMEN- Soft, non tender, non distended, Bowel sounds heard. EXTREMITIES- Good peripheral pulses, no edema Results & Data Vital Signs (Past 12 Hours) Vital Signs Temp Pulse Pulse Pulse Pulse Pulse Pulse 09/24/18 11:24 67 87 85 75 74 09/24/18 11:02 66 09/24/18 07:27 36.7 C 69 09/24/18 07:22 Pulse Resp Resp Resp Resp Resp Resp 09/24/18 11:24 16 24 22 20 16 09/24/18 11:02 18 09/24/18 07:27 18 09/24/18 07:22 89 22 BP Pulse Ox Pulse Ox Pulse Ox Pulse Ox Pulse Ox Pulse Ox 09/24/18 11:24 92 92 87 L 90 81 L 09/24/18 11:02 95 09/24/18 07:27 158/63 H 93 09/24/18 07:22 90
--- NOTE | 2018-09-24 13:09 | Discharge Summary ---
Date of Service September 24, 2018 Admission HPI Per Admitting Provider 83-year-old female followed by Dr. Strange for Internal Medicine in [facility] Pulmonary Medicine at [facility]. Former smoker. History of severe COPD, but has not required chronic steroids or supplemental oxygen. Pulse oximetry with ambulation a few months ago in clinic showed adequate oxygenation. History of pulmonary embolism with underlying lupus anticoagulant and heterozygous MTHFR mutation. On chronic warfarin therapy and monitored regularly by Anticoagulation Clinic. Diagnosed with tachybradycardia syndrome about 6 months ago with significant/symptomatic bradycardia. Pacemaker placed and cardiac rhythms have been controlled. A couple months ago patient noticed increasing dyspnea on exertion. Prior to that, she is able to climb a flight of stairs without stopping to rest. More recently, she has been more dyspneic and has to stop 2 or 3 times while climbing a flight of stairs. Occasional nonproductive cough. Transient mild chest pressure with exertion. She was placed on a prednisone taper on 09/04/2018 and completed the taper yesterday. [place] more short of breath today. Evaluated in pulmonary clinic. Found to be hypoxic with O2 saturations in the 80s. Chest x-ray in clinic reportedly did not show any infiltrates. Patient was referred to the ED for further evaluation and management. At the time of my assessment the ED, O2 saturations were in the low 90s on 2 L nasal cannula and patient was breathing comfortably. Principal Diagnosis 1. Acute hypoxic respiratory failure 2. Advanced Emphysema, Chronic bronchiectasis, Fibrotic changes Secondary diagnosis on discharge 1. Hx of PE on coumadin 2. Paroxysmal atrial fibrillation 3. CKD IV 4 GERD Discharge Exam GENERAL- AAOX3, No acute distress NECK- Supple, no JVD LUNGS- Air entry bilaterally equal. coarse breath sounds + rales + at bases HEART- Regular rate and rhythm. No murmurs ABDOMEN- Soft, non tender, non distended, Bowel sounds heard. EXTREMITIES- Good peripheral pulses, no edema Discharge Data Allergies Allergy/AdvReac Type Severity Reaction Status Date / Time Nitrate Analogues Allergy Mild Unknown Verified 09/18/18 17:54 nitrofurantoin Allergy Mild Unknown Verified 09/18/18 17:54 Quinolones Allergy Mild Intolerant Verified 09/18/18 17:54 ciprofloxacin [From Cipro] Allergy Unknown Intolerant Verified 09/18/18 17:54 Consultations 09/18/18 18:12 ED Decision to Admit Stat 09/19/18 08:56 Consult Pulmonology Routine Ordered Studies 09/19/18 08:55 CT chest wo con Routine Hospital Course (1) Acute respiratory failure with hypoxia: Former smoker for many years with hx of COPD . Progressive dyspnea over past several weeks, most recently with minimal exertion. Had some benefit with prednisone taper, the symptoms worsened as soon as taper was completed on 09/18/18. Hypoxic with O2 saturations in the 80s in clinic. Oxygen saturation in the ED as low was 77%. Currently requiring 4 L oxygen, 6 L on ambulation (Per 2 step)--> Unable to wean her down in spite of rx with Nebs QID, IV steroids f/b prednisone f/b restarting IV steroids and now on PO prednisone. -Probably progressive disease with new baseline - Advanced Emphysema, some bronchiectasis as per pulm, Developing fibrosis per CT scan. -D/D considered- Pneumonia, PE unlikely given supra therapeutic INR. -Work up- CT chest on 09/20/18 - Advanced emphysema with evidence of super imposed interstitial/fibrotic lung disease, No consolidation or pleural effusion. Numerous scattered foci of irregular airspace nodularity. Increased from 06/08/18 and may represent a mild super imposed infectious/inflammatory pneumonitis. 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 -S/P Doxycycline and Zosyn--> Now on Doxycycline (received for 6 days total)- no more on dc -S/P IV Solumedrol- transitioned twice to IV during the stay - not seen much improvement -Pulmonary Medicine consulted- Legionella Ag- Neg, Mycoplasma- Ig G +ve but Ig M -ve, Aspergillus, Alpha 1 antitrypsin, Immunoglobulin - IgE pending, rest normal. 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 HOME REGIMEN: Continue with Trelegy Ellipta, Pulmicort BID (Not sure if she takes it- pulm needs to look into this- continue for now per pulm), Nebs BID and PRN -Counseling about rescue nebs/inhaler vs maintenance rx done at length, lifestyle modifications to adjust according to new baseline done.. -Answered all family questions -Needs close follow up with pulmonary -Needs stair slide as bedroom on second floor (PCP to work on this) (2) COPD (chronic obstructive pulmonary disease): ADVANCED EMPHYSEMA -As discussed above. -Not on oxygen at home. Now on 4 L oxygen at rest, 6 L on ambulation per 2 step -Follow up with Pulmonary -Continue mx as above (3) Elevated lactic acid level: Serum lactate 2.46, downto 2.0. -Not septic. -Leukocytosis probably secondary to prednisone therapy that was just completed on 09/18/18- trending down -Elevated serum lactate most likely secondary to hypoxia. (4) History of pulmonary embolism: History of pulmonary embolism. -Hypercoagulable state secondary to lupus anticoagulant and heterozygous MTHFR mutation. -Continue anticoagulation with warfarin. -INR supratherapeutic on admission. Now on 2.1. -Continue prior to home coumadin dose (5) Paroxysmal atrial fibrillation: Currently in atrial paced rhythm. -Continue atenolol. -Continue anticoagulation with warfarin. (6) Stage 4 chronic kidney disease: CKD 4 Creatinine in March range between 2.16 and 2.93. -Creatinine at time of admission 2.98, trending down to 2.08. -Received IV fluids. Holding furosemide--> Ok to restart on discharge. -Monitor (7) Cerebrovascular disease: -On warfarin. (8) GERD (gastroesophageal reflux disease): -Continue ranitidine. (9) Advanced directives, counseling/discussion: Discussed with patient and her family. Patient indicates that she has a living well. She would like resuscitation attempted in the event of a cardiopulmonary arrest if there is a reasonable chance of meaningful recovery. However, she would not want extraordinary measures undertaken or continued if prognosis is grim. CODE STATUS at this time is full resuscitation -Counseling about rescue nebs/inhaler vs maintenance rx done at length, lifestyle modifications to adjust according to new baseline done.. -Answered all family questions (10) DVT prophylaxis: -On chronic warfarin therapy. (11) Discharge planning issues: Oxygen arrangements to be made Internal Medicine follow-up with Dr. Strange. Pulmonary follow-up with [facility] Pulmonary Medicine. Updated family- , son by bedside Eager to be discharged Ok to discharge today Needs stair slide as bedroom on second floor (PCP to work on this). Total Time Total Time Spent Total Time Spent (In Minutes): 40 minutes , more than half of time in counseling, answering questions of family, coordination of care Total Time Includes: Examination of the Patient, Discharge Planning, Medication Reconciliation and Communication With Other Providers Discharge Plan Discharge Items Patient Disposition: Home - Home Health Services Reason For Visit: HYPOXIA Discharge Diagnosis: COPD / Advanced emphysema/ Fibrosis Discharge Goals: Decrease discomfort and Improve disease control Activity: Resume your previous activity Activity Comment: As tolerated with assistance- walker Non-emergency contact: Primary Care Provider Call non-emergency contact if: your symptoms worsen Follow-up/Referrals: Sravan Buck MD [Physician] - (Will try to make arrangements for follow up with pulmonary. If you dont receive a call in next few days, call Dr Munoz office for follow up appt) Yordy Strange MD [Primary Care Provider] - (Scheduling office closed today. We will call you for appt date and time) Diet: Heart Healthy and Low Sodium (2gm) Addtl Provider Instructions: MEDICATION CHANGES NEW MEDICATION Nebulizer treatment to be taken twice a day - AM and PM and as needed for shortness of breath / Wheezing Continue with coumadin today evening as prior to home dosing. Prescriptions: New prednisone 10 mg tablet 40 mg PO DAILY 30 Days Qty: 45 RF: 0 Continued furosemide 40 mg Tablet 40 mg PO Q2D RF: 0 cyanocobalamin (vitamin B-12) [Vitamin B-12] 1,000 mcg Tablet 1,000 mcg PO DAILY RF: 0 amlodipine 5 mg Tablet 5 mg PO DAILY RF: 0 levothyroxine 88 mcg Tablet 88 mcg PO DAILY RF: 0 warfarin [Jantoven] 2 mg Tablet 2 mg PO UD RF: 0 folic acid 1 mg Tablet 2 mg PO DAILY RF: 0 bupropion HCl 150 mg Tablet Sustained-Release 12 Hr 150 mg PO DAILY RF: 0 albuterol sulfate 2.5 mg /3 mL (0.083 %) Solution For Nebulization 2.5 mg INHALATION UD PRN (Reason: Shortness Of Breath) RF: 0 ranitidine HCl 150 mg Tablet 150 mg PO QPM RF: 0 budesonide [Pulmicort] 0.5 mg/2 mL Suspension For Nebulization 0.5 mg INHALATION BID RF: 0 metoprolol succinate [Toprol XL] 25 mg Tablet Extended Release 24 Hr 25 mg PO DAILY RF: 0 albuterol sulfate [ProAir HFA] 90 mcg/actuation Hfa Aerosol Inhaler 2 puff INHALATION Q4H PRN (Reason: Wheezing) RF: 0 Trelegy Ellipta 100-62.5-25 mcg Blister With Device 1 inh INHALATION DAILY RF: 0 Stand-Alone Forms: My [facility]/Other Patient Handouts: COPD, COPD Dc, COPD Inhalers, COPD Meds, Disease Chron Lung Exercise Safely, Disease Chronic Lung Info Families, Disease Chronic Lung Oxygen Discharge Orders: Discharge Order (Routine); Ordered 09/24/18 Ordered By: Radha Simpson Admission Data Admit Date/Time: 09/18/18 18:43 Attending Provider: Radha Simpson Admit Provider: Kevin Hannah Primary Care Provider: Yordy Strange Other Providers: Atul Bowen ; Sravan Buck Service: Medical Other Pending Studies at Discharge: Yes Studies:: Follow up- Aspergilus, A galactomannan Ag results
[2018-09-24] MEDS ORDERED: ALBUT/IPRATROP 3MG/0.5MG NEB 3 ML VIAL NEB ONE (13:16)
[2018-09-24] MEDS ORDERED: LEVALBUTEROL 1.25MG/0.5ML NEB INH SCH (16:15)
[2018-09-24] MEDS: WARFARIN SOD 2 MG TAB PO SCH (16:18)
[2018-09-25 19:17] LABS: Alpha 1 Antitrypsin 192 MG/DL (83-199); Aspergillus Ag Index 0.33 (<0.50); Aspergillus Antigen, Serum Not Detected (Not Detected); Aspergillus Flavus Negative (Negative); Aspergillus Niger Negative (Negative); Immunoglobulin IgE 228 KU/L (<115); Rast Aspergillus fumigatus IgG 15.7 mcg/mL (<2.0)
== END 2018-09-24 17:15 | disposition home health service (06) | DRG 189 ==
LOC: ED 15:13 → SUATTDRO 18:43 → 2S 18:43 → 2W 09-20 14:41 → 4W 09-22 19:41

== ENCOUNTER 2018-10-05 12:28 | Inpatient (IN) ==
[2018-10-05] MEDS ORDERED: ALBUT/IPRATROP 3MG/0.5MG NEB 3 ML VIAL INH STA (12:45)
[2018-10-05] MEDS ORDERED: methylPREDNISolone 60 MG in SYRINGE 1 ML IV STA (12:45)
[2018-10-05] MEDS ORDERED: SODIUM CHLORIDE 0.9% 250 ML IV ONE (12:48)
--- NOTE | 2018-10-05 13:11 | Emergency Department Note ---
Entered by Babita San acting as a scribe for History of Present Illness General Chief complaint: Shortness of Breath/Dyspnea Time Seen by Provider: 10/05/18 12:35 Source: patient and other (nursing staff) History of Present Illness Onset (ago): day(s) 3 Location: chest Pain Consistency: + other (worsening) Quality: + other (shortness of breath) Relieved By: not by other (O2, nebulizers) Exacerbated By: + movement (exertion) Associated symptoms: + denies other symptoms (diarrhea), + cough, + weakness and + other (hypotensive); no chest pain, no fever/chills (fever) and no nausea/vomiting (vomiting) The patient is an 83 year old female who presents to the ED with complaints of worsening shortness of breath starting 3 days ago. The patient states that she has a history of COPD and is on 4L nasal cannula at all times. She notes that she ups it to 6L nasal cannula when she is up and about. She reports that she has 2 different nebulizers that she uses at home, one that she uses twice a day and the other that she uses 4 times a day. She notes that she has used one of each already this morning. The patient states that over the last 3 days she has had increased shortness of breath and weakness. She notes that it is worse with exertion. She states that she is seen by a home health nurse once a week and when they saw her today, they were concerned. She states that they called Dr. Leung who recommended that they send her to the ED. Nursing staff notes that the home health nurse reported to EMS that she has been hypotensive the last few days. The patient notes that 2 days ago her INR was checked and was 8.0. She notes that they have had her off her Coumadin for 2 days. She notes that she is on it for a history of blood clots. She notes that she just finished a Prednisone taper today that she was placed on by her PCP. The patient complains of coughing up a little more mucus than normal. The patient denies fever, missin g any doses of her medications, vomiting, diarrhea, chest pain, and being on antibiotics currently. Home Medications Home Medications Medication Instructions Recorded Confirmed Type cyanocobalamin (vitamin B-12) 1,000 mcg PO QAM 03/28/18 10/05/18 History [Vitamin B-12] folic acid 2 mg PO QAM 03/28/18 10/05/18 History furosemide 40 mg PO Q2D 03/28/18 10/05/18 History levothyroxine 88 mcg PO QAM 03/28/18 10/05/18 History warfarin [Jantoven] 2 mg PO 3XWK 03/28/18 10/05/18 History Trelegy Ellipta 1 inh INHALATION QAM 09/18/18 10/05/18 History albuterol sulfate 2.5 mg INHALATION UD PRN 09/18/18 10/05/18 History albuterol sulfate [ProAir HFA] 2 puff INHALATION Q4H PRN 09/18/18 10/05/18 History bupropion HCl 150 mg PO QAM 09/18/18 10/05/18 History ranitidine HCl 150 mg PO BID 09/18/18 10/05/18 History amlodipine 2.5 mg PO DAILY 10/05/18 10/05/18 History budesonide 0.5 mg INHALATION Q12H 10/05/18 10/05/18 History metoprolol succinate 50 mg PO DAILY 10/05/18 10/05/18 History warfarin [Jantoven] 1 mg PO 4XWK 10/05/18 10/05/18 History Allergies Allergy/AdvReac Type Severity Reaction Status Date / Time Nitrate Analogues Allergy Mild Unknown Verified 10/05/18 13:25 nitrofurantoin Allergy Mild Unknown Verified 10/05/18 13:25 Quinolones Allergy Mild Intolerant Verified 10/05/18 13:25 ciprofloxacin [From Cipro] Allergy Unknown Intolerant Verified 10/05/18 13:25 Past Med/Surg History Medical History Paroxysmal atrial fibrillation (Chronic) Carotid artery disease (Chronic) Cerebrovascular disease (Chronic) Anticoagulant long-term use (Chronic) GERD (gastroesophageal reflux disease) (Chronic) Bronchiectasis (Chronic) Hyperparathyroidism (Chronic) Dyslipidemia (Chronic) no statin due to elevated LFT's Hypertension (Chronic) Paroxysmal atrial fibrillation (Chronic) Myelolipoma of right adrenal gland (Chronic) Hypothyroidism (Chronic) Pacemaker (Chronic) Tachy-en syndrome (Chronic) Lupus anticoagulant with hypercoagulable state (Chronic) History of pulmonary embolism (Chronic) Emphysema of lung (Chronic) COPD (chronic obstructive pulmonary disease) (Chronic) Asthma (Chronic) Stage 4 chronic kidney disease (Chronic) Surgical History Status cardiac pacemaker (Chronic) 03/29/18 Dr. Lima Status post cataract extraction (Chronic) Status post partial resection of colon (Chronic) 2006 diverticular abscess Family History Mother Stroke Father Colorectal cancer Other Family history non-contributory Social History Preferred Language: [place] Communication Ability: Effective Beliefs That Will Affect Care: None marital status: Current Living Situation: Spouse Current Living Situation Comment: House current occupational status: retired Feels Safe at Home: Yes Safety Concerns: Feels Safe At This Time Smoking Status: Former smoker Second Hand Exposure: No Hx Alcohol Use: No Hx Substance Use: No Review of Systems See HPI for pertinent positives & negatives. and A total of 10 systems reviewed and were otherwise negative Physical Exam Vital Signs Vital Signs - 24 hr 10/05/18 12:35 10/05/18 12:40 10/05/18 12:44 Temperature 37 C Temperature Source Oral Sepsis Recent Fever Within 48 Hours No Sepsis New/Unexplained Change in Mental Status No Sepsis Action Taken by Nursing No Action Required Pulse Rate 117 H 95 H 111 H Pulse Rate [Finger] Pulse Rate from SpO2 Sensor 76 80 Respiratory Rate 33 H 26 H 27 H Respiratory Effort / Characteristics Labored Respiratory Depth Normal Blood Pressure 95/62 L 95/62 L Blood Pressure Mean 73 73 Blood Pressure Position Lying Pulse Oximetry 86 L 94 90 Oxygen Delivery Method Nasal Cannula Oxygen Flow Rate 4 10/05/18 12:53 10/05/18 13:00 10/05/18 13:06 Temperature Temperature Source Sepsis Recent Fever Within 48 Hours Sepsis New/Unexplained Change in Mental Status Sepsis Action Taken by Nursing Pulse Rate 90 Pulse Rate [Finger] 100 H Pulse Rate from SpO2 Sensor 83 Respiratory Rate 30 H 26 H Respiratory Effort / Characteristics Spontaneous Respiratory Depth Blood Pressure Blood Pressure Mean Blood Pressure Position Pulse Oximetry 94 96 91 Oxygen Delivery Method Nasal Cannula Nasal Cannula Oxygen Flow Rate 4 6 10/05/18 13:34 10/05/18 13:36 10/05/18 14:00 Temperature Temperature Source Sepsis Recent Fever Within 48 Hours Sepsis New/Unexplained Change in Mental Status Sepsis Action Taken by Nursing Pulse Rate 120 H 118 H 97 H Pulse Rate [Finger] Pulse Rate from SpO2 Sensor 62 89 84 Respiratory Rate 17 31 H 30 H Respiratory Effort / Characteristics Respiratory Depth Blood Pressure 95/71 L Blood Pressure Mean 79 Blood Pressure Position Pulse Oximetry 78 L 82 L 85 L Oxygen Delivery Method Oxygen Flow Rate 10/05/18 14:01 10/05/18 14:02 10/05/18 14:30 Temperature Temperature Source Sepsis Recent Fever Within 48 Hours Sepsis New/Unexplained Change in Mental Status Sepsis Action Taken by Nursing Pulse Rate 88 105 H 115 H Pulse Rate [Finger] Pulse Rate from SpO2 Sensor 82 90 91 H Respiratory Rate 37 H 26 H 30 H Respiratory Effort / Characteristics Respiratory Depth Blood Pressure 112/78 Blood Pressure Mean 89 Blood Pressure Position Pulse Oximetry 91 96 87 L Oxygen Delivery Method Oxygen Flow Rate 10/05/18 14:31 10/05/18 15:00 10/05/18 15:01 Temperature Temperature Source Sepsis Recent Fever Within 48 Hours Sepsis New/Unexplained Change in Mental Status Sepsis Action Taken by Nursing Pulse Rate 100 H 86 95 H Pulse Rate [Finger] Pulse Rate from SpO2 Sensor 80 78 72 Respiratory Rate 33 H 20 18 Respiratory Effort / Characteristics Respiratory Depth Blood Pressure 130/69 116/68 Blood Pressure Mean 89 84 Blood Pressure Position Pulse Oximetry 96 100 100 Oxygen Delivery Method Oxygen Flow Rate 10/05/18 15:34 10/05/18 16:00 10/05/18 16:05 Temperature Temperature Source Sepsis Recent Fever Within 48 Hours Sepsis New/Unexplained Change in Mental Status Sepsis Action Taken by Nursing Pulse Rate 100 H 140 H Pulse Rate [Finger] Pulse Rate from SpO2 Sensor 99 H 89 Respiratory Rate 34 H 21 Respiratory Effort / Characteristics Respiratory Depth Blood Pressure 94/64 L Blood Pressure Mean 74 Blood Pressure Position Pulse Oximetry 87 L 84 L Oxygen Delivery Method Oxygen Flow Rate 10/05/18 16:06 10/05/18 16:30 10/05/18 16:31 Temperature Temperature Source Sepsis Recent Fever Within 48 Hours Sepsis New/Unexplained Change in Mental Status Sepsis Action Taken by Nursing Pulse Rate 113 H 94 H 107 H Pulse Rate [Finger] Pulse Rate from SpO2 Sensor 102 H 67 77 Respiratory Rate 24 33 H 32 H Respiratory Effort / Characteristics Respiratory Depth Blood Pressure 96/67 L 112/21 L Blood Pressure Mean 76 51 Blood Pressure Position Pulse Oximetry 73 L 94 94 Oxygen Delivery Method Oxygen Flow Rate 10/05/18 17:00 10/05/18 17:01 06/20/19 17:02 Temperature Temperature Source Sepsis Recent Fever Within 48 Hours Sepsis New/Unexplained Change in Mental Status Sepsis Action Taken by Nursing Pulse Rate 125 H 128 H 102 H Pulse Rate [Finger] Pulse Rate from SpO2 Sensor 79 76 82 Respiratory Rate 23 28 H 24 Respiratory Effort / Characteristics Respiratory Depth Blood Pressure 98/63 L Blood Pressure Mean 74 Blood Pressure Position Pulse Oximetry 97 97 Oxygen Delivery Method Oxymask Oxygen Flow Rate 6 10/05/18 17:30 10/05/18 18:00 Temperature Temperature Source Sepsis Recent Fever Within 48 Hours Sepsis New/Unexplained Change in Mental Status Sepsis Action Taken by Nursing Pulse Rate 101 H 120 H Pulse Rate [Finger] Pulse Rate from SpO2 Sensor 90 89 Respiratory Rate 28 H 24 Respiratory Effort / Characteristics Respiratory Depth Blood Pressure 91/64 L Blood Pressure Mean 73 Blood Pressure Position Pulse Oximetry 98 96 Oxygen Delivery Method Oxymask Oxymask Oxygen Flow Rate 6 6 GENERAL: Patient is in no acute distress. HEENT: No acute trauma, normocephalic atraumatic, mucous membranes moist, no nasal congestion, no scleral icterus. NECK: No stridor, no adenopathy, no meningismus, trachea is midline. LUNGS: Diminished breath sounds, but no wheezing. Crackles at the right base. No respiratory distress. HEART: Irregular rhythm. Mild tachycardia. No murmurs. ABDOMEN: Soft, nontender, bowel sounds positive, no hernias, no peritonitis. EXTREMITIES: No cyanosis or edema, full range of motion of all the joints witho ut pain or difficulty, no signs for acute trauma. NEUROLOGIC: Oriented x 3, no acute motor or sensory deficits, no focal weakness. SKIN: No rash, no jaundice, no diaphoresis. Course 1237: Past medical records reviewed. The patient was evaluated in room A3. A complete history and physical exam was performed. 1514: I reevaluated the patient and updated her on her test results. She would like to go home. Nursing staff is going to have her an ambulatory trial and I am going to call Dr. Leung. 1547: The piano case maker informed me that the Dr. Leung is not in the office, but they received a notification that there was an abnormality with her pacemaker. 1550: I reevaluated the patient and she failed her ambulatory trial. I discussed the treatment plan with her. She verbally agrees and understands. 1559: I discussed the patient's case with SANDI More. She and Dr. Nobles will evaluate the patient for further management. Consultations Consultation #1: I discussed the patient's case with SANDI More. She and Dr. Nobles will evaluate the patient for further management. Time: 15:59 Administered Medications Discontinued Medications Albuterol (Duoneb) 3 ml INH NOW STA Stop: 10/05/18 12:46 Last Admin: 10/05/18 13:02 Dose: 3 ml Documented by: [id number] Methylprednisolone 60 mg/ (Syringe) 1.96 mls @ 1.5 mls/min IV NOW STA Stop: 10/05/18 12:46 Last Admin: 10/05/18 13:35 Dose: 1.5 mls/min Documented by: [id number] Sodium Chloride (Nss) 250 mls @ 999 mls/hr IV .Q16M ONE Stop: 10/05/18 13:03 Last Infusion: 10/05/18 13:51 Dose: 0 mls/hr Documented by: [id number] Admin: 10/05/18 13:35 Dose: 999 mls/hr Documented by: [id number] Sodium Chloride (Nss 1000ml) 500 mls @ 999 mls/hr IV .Q31M ONE Stop: 10/05/18 14:45 Last Infusion: 10/05/18 16:44 Dose: 0 mls/hr Documented by: [id number] Admin: 10/05/18 14:29 Dose: 999 mls/hr Documented by: [id number] Medical Decision Making Differential Diagnosis Differential diagnoses include exacerbation of COPD, pneumonia, bronchitis, CHF, dehydration, anemia, electrolyte imbalance, dysrhythmia, MN. Medical Records Attestation: I reviewed the patient's medical records. Home Medications Current Medication List: was personally reviewed by me Laboratory Data Attestation: I reviewed the patient's lab results. Result diagrams: 10/05/18 12:57 10/05/18 13:15 Lab Results 10/05/18 10/05/18 10/05/18 Range/Units 12:57 13:15 13:15 WBC 11.60 H (4.8-10.8) K/uL RBC 4.15 L (4.2-5.4) M/uL Hgb 11.7 L (12.0-16.0) g/dL Hct 36.1 L (37-47) % MCV 87.0 (80-100) fL MCH 28.2 (25-34) pg MCHC 32.4 (32-36) g/dL RDW Std Deviation 52.1 H (36.4-46.3) fL RDW Coeff of Lazaro 16.6 H (11.5-14.5) % Plt Count 168 (130-400) K/uL MPV 12.4 H (7.4-10.4) fL Immature Gran % (Auto) 1.6 % Neut % (Auto) 95.4 % Lymph % (Auto) 1.3 % [place] % (Auto) 1.4 % Eos % (Auto) 0.2 % Baso % (Auto) 0.1 % Immature Gran # (Auto) 0.18 H (0.00-0.02) K/uL Neut # (Auto) 11.08 H (1.4-6.5) K/uL Lymph # (Auto) 0.15 L (1.2-3.4) K/uL [place] # (Auto) 0.16 (0.11-0.59) K/uL Eos # (Auto) 0.02 (0-0.5) K/uL Baso # (Auto) 0.01 (0-0.2) K/uL PT 28.2 H (9.0-12.0) Seconds INR 3.0 H (0.9-1.1) APTT 28.2 (21.0-31.0) Seconds PTT Ratio 1.0 VBG pH (7.36-7.41) VBG pCO2 (38-50) mmHg VBG pO2 mmHg VBG HCO3 mmol/L VBG O2 Saturation % VBG Base Excess mEq/L Barometric Pressure mm/Hg Sodium 139 (136-145) mmol/L Potassium 4.0 (3.5-5.1) mmol/L Chloride 103 (98-107) mmol/L Carbon Dioxide 28 (21-32) mmol/L Anion Gap 8.0 (3-11) BUN 91 H (7-18) mg/dl Creatinine 2.91 H (0.6-1.2) mg/dl Est Cr Clr Drug Dosing 11.6 ml/min Est GFR ( Amer) 16.7 Est GFR (Non-Af Amer) 14.4 BUN/Creatinine Ratio 31.3 H (10-20) Glucose 156 H (70-99) mg/dl Calcium 10.5 H (8.5-10.1) mg/dl Magnesium 2.5 H (1.8-2.4) mg/dl Total Bilirubin 0.6 (0.2-1) mg/dl AST 16 (15-37) U/L ALT 27 (12-78) U/L Alkaline Phosphatase 113 (45-117) U/L Troponin I 0.024 (0-0.045) ng/ml Total Protein 6.1 L (6.4-8.2) gm/dl Albumin 2.6 L (3.4-5.0) gm/dl Globulin 3.5 (2.5-4.0) gm/dl Albumin/Globulin Ratio 0.8 L (0.9-2) /20/19 Range/Units 13:20 WBC (4.8-10.8) K/uL RBC (4.2-5.4) M/uL Hgb (12.0-16.0) g/dL Hct (37-47) % MCV (80-100) fL MCH (25-34) pg MCHC (32-36) g/dL RDW Std Deviation (36.4-46.3) fL RDW Coeff of Lazaro (11.5-14.5) % Plt Count (130-400) K/uL MPV (7.4-10.4) fL Immature Gran % (Auto) % Neut % (Auto) % Lymph % (Auto) % [place] % (Auto) % Eos % (Auto) % Baso % (Auto) % Immature Gran # (Auto) (0.00-0.02) K/uL Neut # (Auto) (1.4-6.5) K/uL Lymph # (Auto) (1.2-3.4) K/uL [place] # (Auto) (0.11-0.59) K/uL Eos # (Auto) (0-0.5) K/uL Baso # (Auto) (0-0.2) K/uL PT (9.0-12.0) Seconds INR (0.9-1.1) APTT (21.0-31.0) Seconds PTT Ratio VBG pH 7.41 (7.36-7.41) VBG pCO2 41 (38-50) mmHg VBG pO2 25 mmHg VBG HCO3 26 mmol/L VBG O2 Saturation < 60.0 % VBG Base Excess 0.9 mEq/L Barometric Pressure 720.7 mm/Hg Sodium (136-145) mmol/L Potassium (3.5-5.1) mmol/L Chloride (98-107) mmol/L Carbon Dioxide (21-32) mmol/L Anion Gap (3-11) BUN (7-18) mg/dl Creatinine (0.6-1.2) mg/dl Est Cr Clr Drug Dosing ml/min Est GFR ( Amer) Est GFR (Non-Af Amer) BUN/Creatinine Ratio (10-20) Glucose (70-99) mg/dl Calcium (8.5-10.1) mg/dl Magnesium (1.8-2.4) mg/dl Total Bilirubin (0.2-1) mg/dl AST (15-37) U/L ALT (12-78) U/L Alkaline Phosphatase (45-117) U/L Troponin I (0-0.045) ng/ml Total Protein (6.4-8.2) gm/dl Albumin (3.4-5.0) gm/dl Globulin (2.5-4.0) gm/dl Albumin/Globulin Ratio (0.9-2) Imaging Data Radiologist's Impression: Radiology results as stated below per my review and the radiologist's interpretation: XR chest 1V portable HISTORY: 83 years-old Female sob acute shortness of breath COMPARISON: Chest radiograph and CT chest 09/19/2018 TECHNIQUE: Portable AP view of the chest FINDINGS: Cardiomediastinal and hilar silhouettes are unchanged. Calcification of the th oracic aortic arch. Left subclavian pacer is unchanged. No pneumothorax, pleural effusion or overt pulmonary edema. Severe emphysema with chronic reticular opacities compatible with fibrosis. No new superimposed opacities identified. Degenerative changes of the shoulders and spine. IMPRESSION: 1. No acute process. 2. Severe emphysema with chronic fibrotic changes. No definite superimposed airspace opacities identified typical for pneumonia. 3. No overt pulmonary edema. The above report was generated using voice recognition software. It may contain grammatical, syntax or spelling errors. Electronically signed by: Anup Hernandez M.D. 10/05/2018 1:42 PM ECG Data Attestation: I personally reviewed and interpreted this ECG as follows: Indication: SOB/dyspnea Rate (beats per minute): 95 Rhythm: atrial fibrillation Findings: + other (LVH); no PVC and no ST elevation Blood Pressure Blood Pressure Findings: Normal blood pressure Blood Pressure Disposition: further management by hospitalist MDM Narrative There is a mild leukocytosis, this could be consistent with infection or her recent steroid use. No concerning anemia. INR is 3, this is consistent with her Coumadin use. VBG does not show acidosis or hypoxia, no CO2 retention. Renal panel testing suggests some dehydration with an elevation to the BUN and creatinine. No elevation to the liver enzymes. EKG showed atrial fibrillation, LVH was present, no acute ischemia. Cardiac troponin returned normal and thus, not consistent with acute cardiac injury. Chest film showed some chronic findings, no acute infiltrate, no pneumothorax or CHF. The patient was given IV Solu-Medrol, IV saline, a repeat saline bolus was administered. She received a DuoNeb. The patient was helped up from the stretcher on her typical 6 L of oxygen, she became very dyspneic and her O2 saturation dropped to 85%, she could not even make it to the restroom. The patient is having a flare of COPD, she very likely has an acute bronchitis. She also is dehydrated based on her laboratory testing. A hospital stay at this point is warranted, I spoke to the patient and piano case maker. The on-call hospitalist was consulted. Impression & Plan Hypoxia, Dehydration, COPD exacerbation, Acute bronchitis Discharge Plan Visit Data *Final* Discharge Date/Time: 10/05/18 18:23 Chief Complaint: Shortness of Breath/Dyspnea ED Provider: Rene Mendoza Discharge Problem: Hypoxia, Dehydration, COPD exacerbation, Acute bronchitis Patient Disposition: Admitted As Inpatient Discharge Instructions Interventions: ED Discharge Assessment Last Done: 10/05/18 18:23 The scribe's documentation has been prepared under my direction and personally reviewed by me in its entirety. I confirm that the note above accurately refl ects all work, treatment, procedures, and medical decision making performed by me.
--- NOTE | 2018-10-05 13:44 | XRay Report ---
XR chest 1V portable HISTORY: 83 years-old Female sob acute shortness of breath COMPARISON: Chest radiograph and CT chest 09/19/2018 TECHNIQUE: Portable AP view of the chest FINDINGS: Cardiomediastinal and hilar silhouettes are unchanged. Calcification of the thoracic aortic arch. Lef t subclavian pacer is unchanged. No pneumothorax, pleural effusion or overt pulmonary edema. Severe e mphysema with chronic reticular opacities compatible with fibrosis. No new superimposed opacities mirna ntified. Degenerative changes of the shoulders and spine. IMPRESSION: 1. No acute process. 2. Severe emphysema with chronic fibrotic changes. No definite superimposed airspace opacities identi fied typical for pneumonia. 3. No overt pulmonary edema. The above report was generated using voice recognition software. It may contain grammatical, syntax o r spelling errors. Electronically signed by: Anup Hernandez M.D. 10/05/2018 1:42 PM
[2018-10-05 13:47] LABS: Basophils # (auto) 0.01 K/uL (0-0.2); Basophils % (auto) 0.1 %; Eosinophils # (auto) 0.02 K/uL (0-0.5); Eosinophils % (auto) 0.2 %; Hematocrit (blood only) 36.1 % (37-47); Hemoglobin 11.7 g/dL (12.0-16.0); Immature Granulocytes # (auto) 0.18 K/uL (0.00-0.02); Immature Granulocytes % (auto) 1.6 %; Lymphocytes # (auto) 0.15 K/uL (1.2-3.4); Lymphocytes % (auto) 1.3 %; Mean Corpuscular Hgb Conc 32.4 g/dL (32-36); Mean Platelet Volume 12.4 fL (7.4-10.4); Monocytes # (auto) 0.16 K/uL (0.11-0.59); Monocytes % (auto) 1.4 %; Neutrophils # (auto) 11.08 K/uL (1.4-6.5); Neutrophils % (auto) 95.4 %; Platelet Count 168 K/uL (130-400); RDW Coefficient of Variation 16.6 % (11.5-14.5); RDW Standard Deviation 52.1 fL (36.4-46.3); Red Blood Count 4.15 M/uL (4.2-5.4)
[2018-10-05 14:00] LABS: Partial Thromboplastin Time 28.2 Seconds (21.0-31.0); Prothrombin Time 28.2 Seconds (9.0-12.0)
[2018-10-05 14:00] LABS: Base Excess VBG 0.9 mEq/L; HCO3 VBG 26 mmol/L; PCO2 VBG 41 mmHg (38-50); PO2 VBG 25 mmHg; pH VBG 7.41 (7.36-7.41)
[2018-10-05 14:03] LABS: Albumin Level 2.6 gm/dl (3.4-5.0); BUN Creatinine Ratio 31.3 (10-20); Calcium 10.5 mg/dl (8.5-10.1); Creatinine Clr Calc Pharmacy 11.6 ml/min; Est GFR (African American) 16.7; Est GFR (Non-African American) 14.4; Magnesium 2.5 mg/dl (1.8-2.4)
[2018-10-05 14:08] LABS: Albumin Globulin Ratio 0.8 (0.9-2); Bilirubin,Total 0.6 mg/dl (0.2-1); Globulin 3.5 gm/dl (2.5-4.0); Total Protein 6.1 gm/dl (6.4-8.2); Troponin I 0.024 ng/ml (0-0.045)
[2018-10-05 14:10] LABS: Oxygen Saturation VBG < 60.0 %
[2018-10-05] MEDS ORDERED: SODIUM CHLORIDE 0.9% 1000ML 500 ML IV ONE (14:15)
--- NOTE | 2018-10-05 17:44 | History & Physical Report ---
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 -Hypoxic in mid-80s with exertion on home 6L NC, improved to 93 % on oxymask 9L/min -In setting of recent COPD exacerbation, also with underlying bronchiectasis and fibrosis -No evidence of acidosis with VBG pH of 7.4. Consider ABG if respiratory status worsens -Recently completed p.o. steroid course -Given 60 mg IV Solu-Medrol in ED. Will continue with 40 mg prednisone daily -Xopenex nebs every 6 hours -Continue home inhalers -Pulm consult (4) Paroxysmal atrial fibrillation: HR ranging from 103-130 in ED, now 95 -ECG with A Fib, will monitor on tele -Recently had Toprol increased to 50mg daily, could be contributing to worsened respiratory state -Routine cardiology consult -Anticoagulated on coumadin with INR of 3 today. Daily INR (5) Hypothyroidism: TSH pending -Continue home dose levothyroxine (6) Stage 4 chronic kidney disease: Cr of 2.9 (baseline mid-high 2s) -In setting of poor PO intake. Gentle IV fluids -Hold lasix (7) Tachy-en syndrome: S/p pacemaker placement DVT Ppx: Coumadin Code status: FULL PCP: Alexandr Dispo: Admitted to telemetry. Discharge planning ordered. Patient seen in collaboration with Dr. Nobles. Please see addendum. 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 Patient was recently admitted from for COPD exacerbation and acute respiratory failure. Was discharged home on steroid taper, which she completed the last dose of yesterday. Was evaluated by pulmonology service during admission and was started on budesonide twice daily. Since discharge, patient states that breathing has been slightly worse than normal, particularly when exerting herself. According to family, patient has been much less active than usual, more week and more visibly short of breath. is now having to manage medications, which is new since hospital discharge. Requires 6L NC O2 with exertion at baseline, but has been becoming hypoxic in mid-80s even when using restroom. Denies fever, chills, lightheadedness, coughing or wheezing. No hemoptysis. Was visited by home health nurse today and was noted to be tachycardic. Cardiology office was called and patient was directed to ED for further evaluation. Denies chest pain or palpitations. Has had poor p.o. intake but denies nausea, vomiting or abdominal pain. No melena or hematochezia. No dysuria, diarrhea or constipation. Allergies Allergy/AdvReac Type Severity Reaction Status Date / Time Nitrate Analogues Allergy Mild Unknown Verified 10/05/18 13:25 nitrofurantoin Allergy Mild Unknown Verified 10/05/18 13:25 Quinolones Allergy Mild Intolerant Verified 10/05/18 13:25 ciprofloxacin [From Cipro] Allergy Unknown Intolerant Verified 10/05/18 13:25 Home Medications Home Medications Medication Instructions Recorded Confirmed Type cyanocobalamin (vitamin B-12) 1,000 mcg PO QAM 03/28/18 10/05/18 History [Vitamin B-12] folic acid 2 mg PO QAM 03/28/18 10/05/18 History furosemide 40 mg PO Q2D 03/28/18 10/05/18 History levothyroxine 88 mcg PO QAM 03/28/18 10/05/18 History warfarin [Jantoven] 2 mg PO MOWEFR@1600 03/28/18 10/05/18 History Trelegy Ellipta 1 inh INHALATION QAM 09/18/18 10/05/18 History albuterol sulfate 2.5 mg INHALATION UD PRN 09/18/18 10/05/18 History albuterol sulfate [ProAir HFA] 2 puff INHALATION Q4H PRN 09/18/18 10/05/18 History bupropion HCl 150 mg PO QAM 09/18/18 10/05/18 History ranitidine HCl 150 mg PO BID 09/18/18 10/05/18 History amlodipine 2.5 mg PO DAILY 10/05/18 10/05/18 History budesonide 0.5 mg INHALATION Q12H 10/05/18 10/05/18 History metoprolol succinate 50 mg PO DAILY 10/05/18 10/05/18 History warfarin [Jantoven] 1 mg PO SUTUTHSA@1600 10/05/18 10/05/18 History Past Med/Surg History Medical History Paroxysmal atrial fibrillation (Chronic) Carotid artery disease (Chronic) Cerebrovascular disease (Chronic) Anticoagulant long-term use (Chronic) GERD (gastroesophageal reflux disease) (Chronic) Bronchiectasis (Chronic) Hyperparathyroidism (Chronic) Dyslipidemia (Chronic) no statin due to elevated LFT's Hypertension (Chronic) Paroxysmal atrial fibrillation (Chronic) Myelolipoma of right adrenal gland (Chronic) Hypothyroidism (Chronic) Pacemaker (Chronic) Tachy-en syndrome (Chronic) Lupus anticoagulant with hypercoagulable state (Chronic) History of pulmonary embolism (Chronic) Emphysema of lung (Chronic) COPD (chronic obstructive pulmonary disease) (Chronic) Asthma (Chronic) Stage 4 chronic kidney disease (Chronic) Surgical History Status cardiac pacemaker (Chronic) 03/29/18 Dr. Lima Status post cataract extraction (Chronic) Status post partial resection of colon (Chronic) 2006 diverticular abscess Family History Mother Stroke Father Colorectal cancer Other Family history non-contributory Social History Preferred Language: Upper Sorbian Communication Ability: Effective Beliefs That Will Affect Care: None marital status: Current Living Situation: Spouse Current Living Situation Comment: House current occupational status: retired Feels Safe at Home: Yes Safety Concerns: Feels Safe At This Time Smoking Status: Former smoker Second Hand Exposure: No Hx Alcohol Use: No Hx Substance Use: No Review of Systems Review of Systems: At least ten systems reviewed and negative except as noted in the HPI. Physical Exam Physical Exam: General Appearance: WD/WN, short of breath when speaking, wearing oxymask Head: normocephalic, atraumatic Eyes: normal inspection, PERRL, EOMI ENT: hearing grossly normal, pharynx normal (moist mucous membranes) Neck: supple, no JVD, no adenopathy Respiratory/Chest: Bibasilar crackles, otherwise clear. No wheezes, rales or rhonci. +respiratory distress when speaking Cardiovascular: iregular rate & rhythm, no murmur, normal peripheral pulses, no BLE edema Abdomen/GI: normal bowel sounds, soft, non-tender to palpation Extremities/Musculoskelatal: normal inspection, no calf tenderness, normal capillary refill, no pedal edema Neurologic/Psych: alert, normal mood/affect, oriented x 3 Skin: normal color, warm/dry Results & Data Vital Signs (Past 12 Hours) Vital Signs Temp Pulse Pulse Resp BP Pulse Ox 10/05/18 17:01 128 H 28 H 98/63 L 97 10/05/18 17:00 125 H 23 10/05/18 16:31 107 H 32 H 112/21 L 94 10/05/18 16:30 94 H 33 H 94 10/05/18 16:06 113 H 24 96/67 L 73 L 10/05/18 16:05 140 H 21 94/64 L 10/05/18 16:00 100 H 34 H 84 L 10/05/18 15:34 87 L 10/05/18 15:01 95 H 18 116/68 100 10/05/18 15:00 86 20 100 10/05/18 14:31 100 H 33 H 130/69 96 10/05/18 14:30 115 H 30 H 87 L 10/05/18 14:02 105 H 26 H 96 10/05/18 14:01 88 37 H 112/78 91 10/05/18 14:00 97 H 30 H 85 L 10/05/18 13:36 118 H 31 H 95/71 L 82 L 10/05/18 13:34 120 H 17 78 L 10/05/18 13:06 100 H 26 H 91 10/05/18 13:00 90 30 H 96 10/05/18 12:53 94 10/05/18 12:44 111 H 27 H 90 10/05/18 12:40 37 C 95 H 26 H 95/62 L 94 10/05/18 12:35 117 H 33 H 95/62 L 86 L Laboratory Results Short CBC 10/05/18 Range/Units 12:57 WBC 11.60 H (4.8-10.8) K/uL Hgb 11.7 L (12.0-16.0) g/dL Hct 36.1 L (37-47) % Plt Count 168 (130-400) K/uL BMP 10/05/18 13:15 Sodium 139 Potassium 4.0 Chloride 103 Carbon Dioxide 28 BUN 91 H Creatinine 2.91 H Glucose 156 H Calcium 10.5 H Cardiac Enzymes 10/05/18 Range/Units 13:15 Troponin I 0.024 (0-0.045) ng/ml Liver Function 10/05/18 Range/Units 13:15 Total Bilirubin 0.6 (0.2-1) mg/dl AST 16 (15-37) U/L ALT 27 (12-78) U/L Alkaline Phosphatase 113 (45-117) U/L Albumin 2.6 L (3.4-5.0) gm/dl Diagnostic Findings CXR: IMPRESSION: 1. No acute process. 2. Severe emphysema with chronic fibrotic changes. No definite superimposed airspace opacities identified typical for pneumonia. 3. No overt pulmonary edema. Supervising Physician Co-Signing Physician Notes Pt was seen and examined. Agreed with Saskia JUNIOR exam, assessment and plan. 83-year-old female with a PMH of severe COPD (on 4 L NC O2), chronic bronchiectasis, paroxysmal atrial fibrillation, CKD IV, SLE, tachy en syndrome s/p pacemaker was seen to the ER for worsening SOB. Pt was recently discharge on 09/24 for acute respiratory failure with hypoxia on oxygen supplement. She said since discharge her breathing has been getting worst. She said that she has SOB with minimal exertion and feels very week. She said that the visiting nurse saw her today and her HR was very high. Visiting nurse called cardiology Dr. Leung that recommended to go to the ER for eval. said that she just completed a course of prednisone. In the ER HR was in the 120's and oxygen level was in the 80's with RR in 30's. CXR showed no acute finding. Received Solumedrol and Neb treatment in the ER. Currently she said that her breathing improves. requested for her to be seen by cardiology. Will continue oxygen supplement. Pulmonology consult. Will monitor closely. PT/OT eval. Please refer to Saskia JUNIOR documentation for other problems. MD Giuliano
[2018-10-05] MEDS ORDERED: ONDANSETRON INJ 2 MG/ML 2 ML VIAL IV PRN (19:34)
[2018-10-05] MEDS ORDERED: POLYETHYLENE (MIRALAX) 17 GM PACK PO PRN (19:34)
[2018-10-05] MEDS ORDERED: ACETAMINOPHEN 325 MG TAB PO PRN (19:34)
[2018-10-05] MEDS: LEVALBUTEROL HCL 0.63 MG/3 ML NEB NEB SCH (20:51)
[2018-10-06] MEDS ORDERED: SODIUM CHLORIDE 0.9% 500 ML IV ONE (00:26)
[2018-10-06] MEDS ORDERED: DIGOXIN 250 MCG in SYRINGE 9 ML IV STA (00:33)
[2018-10-06] MEDS: LEVALBUTEROL HCL 0.63 MG/3 ML NEB NEB SCH ×4 (02:36→19:30)
[2018-10-06] MEDS: LEVOTHYROXINE SODIUM 88 MCG TABLET PO SCH (05:04)
[2018-10-06 06:53] LABS: Hemoglobin 10.7 g/dL (12.0-16.0); Mean Corpuscular Hgb Conc 32.4 g/dL (32-36); Mean Corpuscular Volume 87.3 fL (80-100); Mean Platelet Volume 12.2 fL (7.4-10.4); Platelet Count 139 K/uL (130-400); RDW Coefficient of Variation 16.5 % (11.5-14.5); RDW Standard Deviation 52.2 fL (36.4-46.3); Red Blood Count 3.78 M/uL (4.2-5.4); White Blood Count 10.33 K/uL (4.8-10.8)
[2018-10-06 07:07] LABS: INR 2.9 (0.9-1.1); Prothrombin Time 27.7 Seconds (9.0-12.0)
[2018-10-06 07:32] LABS: BUN Creatinine Ratio 30.2 (10-20); Calcium 9.5 mg/dl (8.5-10.1); Creatinine Clr Calc Pharmacy 12.8 ml/min; Est GFR (African American) 18.5; Potassium 4.1 mmol/L (3.5-5.1)
[2018-10-06 07:55] LABS: T4 Free Thyroxine 1.32 ng/dl (0.8-1.6)
[2018-10-06] MEDS ORDERED: AMLODIPINE BESYLATE 5 MG TAB PO SCH (09:00)
[2018-10-06] MEDS: FOLIC ACID 1 MG TAB PO SCH (09:51)
[2018-10-06] MEDS: BuPROPion SR 150 MG TABCR PO SCH (09:51)
[2018-10-06] MEDS: CYANOCOBALAMIN 500 MCG TABLET (VITAMIN B-12) PO SCH (09:52)
[2018-10-06] MEDS: predniSONE 20 MG TAB PO SCH (09:52)
[2018-10-06] MEDS: METOPROLOL SUCC 50MG EXT REL TAB PO SCH (09:52)
--- NOTE | 2018-10-06 11:21 | Hospitalist Progress Note ---
Date of Service October 06, 2018 Assessment & Plan (1) Acute on chronic respiratory failure: (2) COPD exacerbation: (3) Bronchiectasis: This is an 83-year-old female with a PMH of severe COPD (on 4 L NC O2), chronic bronchiectasis, paroxysmal atrial fibrillation, CKD IV, SLE, tachy en syndrome s/p pacemaker and other medical problems listed below who presents with acute on chronic respiratory failure. Recent discharge on 09/24/2018 , started on oxygen - 4 L at rest and 6 L on ambulation. -Home oxygen: 4 L rest, 6 L ambulation. Here Hypoxic in mid-80s on 6 L oxymask---> Goal - 88-92% -Home regimen: Pulmicort BID, Trelegy Ellipta. Did not start on Delirasp as first exacerbation of the year. -Recent admission: Legionella antigennegative, Aspergillus- neg, L pneumophilia IgM neg, mycoplasma IgGpositive, IgM negative, Immunoglobulins- Ig E -228 (high) . Patient declined biopsy given risk versus benefits -Etiology: Advanced Emphysema with broncheictasis/ fibrotic changes, opacities per recent CT scan, Recent rx for COPD exacerbation --> Tapered off steroids few days ago. -No evidence of acidosis with VBG pH of 7.4, HCO3 around 27 -Recently completed p.o. steroid course -S/P 60 mg IV Solu-Medrol in ED. Will continue with 40 mg prednisone daily -Xopenex nebs every 6 hours -Pulm consulted--> awaiting inputs (4) Paroxysmal atrial fibrillation: HR ranging from 103-130 in ED, now 90 -ECG with A Fib, will monitor on tele -Recently had Toprol increased to 50mg daily by pulmonary outpatient on 10/02/18 -Anticoagulated on coumadin with therapeutic INR (5) Hypothyroidism: TSH- 0.130 -Continue home dose levothyroxine (6) Stage 4 chronic kidney disease: Cr of 2.9 (baseline mid-high 2s) --> Trending down -In setting of poor PO intake. Gentle IV fluids -Hold lasix (7) Tachy-en syndrome: S/p pacemaker placement DVT Ppx: Coumadin Code status: FULL PCP: Alexandr Dispo: Medical mx in progress PT/OT ordered Got stair slide at home since last discharge. Updated by bedside Subjective Patient continues to have shortness of breath with minimal exertion. Per patient, she has not noted any worsening of baseline shortness of breath which to begin with is quite severe limiting her activities of daily living Requiring to take multiple breaks after walking few steps. No worsening of cough or sputum production. No chest pain, fever, chills, leg swelling Continuous pulse oximetrysaturation does drop to 80s on and off, currently on 6 L of oxygen A fib with HR 90s Physical Exam Physical Exam: GENERAL- AAOX3, No acute distress, chronically ill looking. On oxymask + NECK- Supple, no JVD. Not using accessory muscles of respiration LUNGS- Air entry bilaterally decreased, rales present, no wheezing HEART- Irregularly irregular rhythm + EXTREMITIES- Good peripheral pulses, no edema Results & Data Vital Signs (Past 12 Hours) Vital Signs Temp Pulse Pulse Resp BP Pulse Ox 10/06/18 07:21 36.7 C 98 H 18 125/79 91 10/06/18 07:18 98 H 18 91 10/06/18 04:27 36.5 C 99 H 20 112/64 91 10/06/18 02:37 86 20 94 10/06/18 01:24 111 H 10/06/18 01:16 111 H 110/74 10/05/18 23:59 100 H
[2018-10-06] MEDS ORDERED: WARFARIN SOD 2 MG TAB PO SCH (16:00)
--- NOTE | 2018-10-06 17:13 | Cardiology Consultation ---
Date of Consultation October 06, 2018 Assessment & Plan (1) Paroxysmal atrial fibrillation: The patient is an 83-year-old female with a history of significant underlying pulmonary disease past paroxysmal atrial fibrillation with recent lapse and atrial fibrillation with rapid response since last admission in early September. Presents now with both worsening pulmonary disease as well as elevated atrial fibrillation rates. She remains properly anticoagulated Plan: Continue Toprol-XL. Add diltiazem orally and discontinue amlodipine. Prior difficulties with low blood pressure limit titration of medications but will attempt to gain better rate control. Continue full anticoagulation Echocardiogram will be ordered to assess likelihood of return to sinus rhythm, assess chamber size Options include trial synchronized cardioversion or further titration of medications for rate control. Both unsuccessful or are neither feasible would consider AV junction ablation in the future currently not indicated (2) Tachy-en syndrome: (3) Pacemaker: (4) COPD exacerbation: (5) Acute on chronic respiratory failure: (6) Stage 4 chronic kidney disease: History of Present Illness Reason for Consultation: Atrial fibrillation with elevated ventricular response rate, worsening dyspnea Requesting Physician: Dr. Simpson Attending Physician: Radha Simpson History of Present Illness Patient is an 83-year-old female with complex history which includes chronic obstructive lung disease/bronchiectasis/emphysema with chronic fibrotic disease O2 dependent, past paroxysmal and recently persistent atrial fibrillation with tachybradycardia syndrome and indwelling dual-chamber pacemaker placed April 14, 2018 after syncopal event. Remains chronically anticoagulated. Underlying medical problems include CKD stage IV history of lupus anticoagulant Patient presents this admission noted recent difficulties with worsening dyspnea including hospitalization in early September. During that hospitalization patient was in atrial paced or sinus rhythm. Dyspnea had been improved but not completely resolved she was readmitted with worsening dyspnea as well as findings of newly recurrent atrial fibrillation with persistently elevated heart rates. Findings were observed on pacemaker interrogation. Patient's been referred and begun on multiple therapies. Patient is currently more comfortable since admission heart rates have come down. Notes no dizziness or lightness notes no syncope or near syncope notes no chest pain. Chronic dyspnea remains present especially with minimal exertion even as little as ambulating team to bathroom. Patient notes no bleeding difficulties. Notes no febrile complaints. Has been therapeutic on anticoagulation. Amlodipine recently discontinued due to low blood pressures. Allergies Allergy/AdvReac Type Severity Reaction Status Date / Time Nitrate Analogues Allergy Mild Unknown Verified 10/05/18 13:25 nitrofurantoin Allergy Mild Unknown Verified 10/05/18 13:25 Quinolones Allergy Mild Intolerant Verified 10/05/18 13:25 ciprofloxacin [From Cipro] Allergy Unknown Intolerant Verified 10/05/18 13:25 Home Medications Home Medications Medication Instructions Recorded Confirmed Type cyanocobalamin (vitamin B-12) 1,000 mcg PO QAM 03/28/18 10/05/18 History [Vitamin B-12] folic acid 2 mg PO QAM 03/28/18 10/05/18 History furosemide 40 mg PO Q2D 03/28/18 10/05/18 History levothyroxine 88 mcg PO QAM 03/28/18 10/05/18 History warfarin [Jantoven] 2 mg PO MOWEFR@1600 03/28/18 10/05/18 History Trelegy Ellipta 1 inh INHALATION QAM 09/18/18 10/05/18 History albuterol sulfate 2.5 mg INHALATION UD PRN 09/18/18 10/05/18 History albuterol sulfate [ProAir HFA] 2 puff INHALATION Q4H PRN 09/18/18 10/05/18 History bupropion HCl 150 mg PO QAM 09/18/18 10/05/18 History ranitidine HCl 150 mg PO BID 09/18/18 10/05/18 History amlodipine 2.5 mg PO DAILY 10/05/18 10/05/18 History budesonide 0.5 mg INHALATION Q12H 10/05/18 10/05/18 History metoprolol succinate 50 mg PO DAILY 10/05/18 10/05/18 History warfarin [Jantoven] 1 mg PO SUTUTHSA@1600 10/05/18 10/05/18 History Patient History Medical History Paroxysmal atrial fibrillation (Chronic) Carotid artery disease (Chronic) Cerebrovascular disease (Chronic) Anticoagulant long-term use (Chronic) GERD (gastroesophageal reflux disease) (Chronic) Bronchiectasis (Chronic) Hyperparathyroidism (Chronic) Dyslipidemia (Chronic) no statin due to elevated LFT's Hypertension (Chronic) Paroxysmal atrial fibrillation (Chronic) Myelolipoma of right adrenal gland (Chronic) Hypothyroidism (Chronic) Pacemaker (Chronic) Tachy-en syndrome (Chronic) Lupus anticoagulant with hypercoagulable state (Chronic) History of pulmonary embolism (Chronic) Emphysema of lung (Chronic) COPD (chronic obstructive pulmonary disease) (Chronic) Asthma (Chronic) Stage 4 chronic kidney disease (Chronic) Surgical History Status cardiac pacemaker (Chronic) 03/29/18 Dr. Lima Status post cataract extraction (Chronic) Status post partial resection of colon (Chronic) 2006 diverticular abscess Family History Mother Stroke Father Colorectal cancer Other Family history non-contributory Social History Preferred Language: Divehi Communication Ability: Effective Beliefs That Will Affect Care: None marital status: Current Living Situation: Spouse Current Living Situation Comment: House current occupational status: retired Feels Safe at Home: Yes Safety Concerns: Feels Safe At This Time Smoking Status: Former smoker Second Hand Exposure: No Hx Alcohol Use: No Hx Substance Use: No Physical Exam Constitutional: WD/WN, vitals as above Eyes: PERRL, conjunctivae normal, anicteric sclerae ENMT: external ear and nose normal, oropharynx normal Respiratory: Auscultation: + diminished lung sounds and + rales Cardiovascular: Rate/Rhythm: + irregularly irregular Heart Sounds: normal S1 and normal S2 Distant heart sounds Gastrointestinal (Abdomen): normal bowel sounds, soft, nontender, no hepat osplenomegaly Musculoskeletal: no cyanosis or clubbing, extremities motor strength 5/5 Skin: no rashes, warm and dry Results & Data Vital Signs (Past 12 Hours) Vital Signs Temp Pulse Resp BP Pulse Ox 10/06/18 16:17 96 10/06/18 16:00 36.5 C 87 24 147/68 H 10/06/18 14:03 83 L 10/06/18 13:50 79 18 96 10/06/18 11:36 36.4 C L 72 18 122/59 L 91 10/06/18 07:21 36.7 C 98 H 18 125/79 91 10/06/18 07:18 98 H 18 91 Laboratory Results Laboratory Results - last 24 hr 10/06/18 10/06/18 10/06/18 06:26 06:26 06:26 WBC 10.33 RBC 3.78 L Hgb 10.7 L Hct 33.0 L MCV 87.3 MCH 28.3 MCHC 32.4 RDW Std Deviation 52.2 H RDW Coeff of Lazaro 16.5 H Plt Count 139 MPV 12.2 H PT 27.7 H INR 2.9 H Sodium 143 Potassium 4.1 Chloride 110 H Carbon Dioxide 27 Anion Gap 6.0 BUN 81 H Creatinine 2.67 H Est Cr Clr Drug Dosing 12.8 Est GFR ( Amer) 18.5 Est GFR (Non-Af Amer) 16.0 BUN/Creatinine Ratio 30.2 H Glucose 153 H Calcium 9.5 TSH 0.130 L Free T4 1.32 ECG Additional Comments: 06-OCT-2018 06:36:04 [facility]-D ROUTINE RETRIEVAL Atrial fibrillation with rapid ventricular response Left anterior fascicular block Moderate voltage criteria for LVH, may be normal variant ( R in aVL , [place] product ) Septal infarct , age undetermined ST & T wave abnormality, consider lateral ischemia Abnormal ECG When compared with ECG of 05-OCT-2018 12:40, Septal infarct is now Present T wave inversion no longer evident in Inferior leads
--- NOTE | 2018-10-06 21:57 | Consultation Report ---
DATE OF CONSULTATION: 10/06/2018 PULMONARY MEDICINE CONSULTATION REASON FOR CONSULTATION: Pulmonary evaluation/severe COPD. HISTORY OF PRESENT ILLNESS: An 83-year-old white female well known to me from previous admission with past medical history of severe COPD, chronic bronchiectasis, and interstitial lung disease. Was readmitted after hospitalization from 09/19/2018 to 09/24/2018 for COPD exacerbation and acute hypoxic respiratory failure. She was sent home on a steroid taper and apparently yesterday became progressively more dyspneic, was found to be in atrial fibrillation with a fast ventricular response. She had been discharged on budesonide nebulizer treatments b.i.d. in addition to her usual regimen and had been on oxygen at 4 L at rest, 6 L with exertion. She has basically been sedentary since her discharge and with poor p.o. intake. She states that her olfactory sense and taste buds are no longer operative and food does not taste good. She also has postprandial fullness. She has had diarrheal stools. She is on long-term anticoagulant therapy for her atrial fibrillation. She is extremely weak and symptomatic from her underlying lung disease and the atrial fibrillation with fast ventricular response. Currently, today I saw the patient who was surrounded at bedside by her and daughter. She was jovial, but certainly dyspneic with any minimal exertion. She received IV Solu-Medrol and nebulizer in the ER and continued O2 supplementation. She has at times been hypotensive. Her Coumadin has been adjusted and her drop shipment clerk is Dr. Leung. He was contacted when patient was at home and advised to be taken to the Emergency Room which was insisted upon by the visiting nurse. Chest x-ray in the ER once again showed severe emphysema with chronic fibrotic changes. No obvious evidence of pulmonary edema. For details of past medical history, I refer you to my dictated consultative note dated 09/19/2018. The patient is a former smoker and is followed by Dr. Strange in the clinic. 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 Also she has a history of spontaneous pneumothorax on multiple occasions. She had been taking her Trelegy Ellipta inhaler in the past. For additional details of past medical history, I refer you to current and past notation. PHYSICAL EXAMINATION: GENERAL: Friendly, diminutive elderly white female appearing mildly dyspneic at rest. CURRENT VITAL SIGNS: Blood pressure 122/59, pulse 72 and irregular, respiratory rate 18, temperature 36.4, O2 sat 91% on 6 liters OxyMask. SKIN: Without lesion. HEENT: Atraumatic, normocephalic. PERRLA. EOMI. Conjunctivae pale. Sclerae nonicteric. Fundi poorly visualized. NECK: Neck veins are not distended at 45 degrees. No lymphadenopathy in the supra or infraclavicular areas. LUNGS: Marked hyperresonance with one scattered wheeze, otherwise distant P and A. CARDIAC: Irregularly irregular rhythm. I do not appreciate a gallop. ABDOMEN: Soft, slightly protuberant, but no evidence of hepatosplenomegaly. EXTREMITIES: No significant pedal edema, clubbing or cyanosis. NEUROLOGIC: Intact. No lateralizing signs. LABORATORY DATA: White count today 10,000, H and H 10.7 and 33, which is down from 13.7 and 41 from 03/28/2018. There was a slight leftward shift to the white count. BUN 81, creatinine 2.67, which is slightly down from 91 and 2.91 at time of admission. IgE level is elevated. Aspergillus antibodies have been negative. Other serologies not helpful. CT scan as noted on 09/19/2018 are showing advanced emphysema with evidence of superimposed interstitial and fibrotic lung disease. No lobar consolidation. Numerous scattered foci of irregular airspace nodularity which has increased from 06/08/2018 may suggest a superimposed infectious or inflammatory process. OVERALL ASSESSMENT AND PLAN: An 83-year-old white female with severe end-stage steroid and O2 dependent chronic obstructive pulmonary disease/interstitial lung disease with possible indolent infectious process, i.e., atypical mycobacterial disease or MAC that may be causing further slow deterioration since May of this year. Her atrial fibrillation with a fast ventricular response has contributed to her decompensation and that seems to be under control currently. I have had a lengthy discussion with both patient and her family about the end-stage nature of her disease. She is a level 5 DNR. It may be beneficial to consider treatment of a MAC infection empirically , but that would require 3-drug regimen 3 times a week indefinitely.Elevated IGE could be seen w Aspergillus involvement as well. Will discuss further with the family in the morning. Overall prognosis poor. MTDD
[2018-10-07] MEDS: LEVALBUTEROL HCL 0.63 MG/3 ML NEB NEB SCH ×4 (01:41→19:36)
[2018-10-07] MEDS: LEVOTHYROXINE SODIUM 88 MCG TABLET PO SCH (06:05)
[2018-10-07 07:41] LABS: Hemoglobin 10.7 g/dL (12.0-16.0); Mean Corpuscular Hgb Conc 32.4 g/dL (32-36); Mean Corpuscular Volume 87.3 fL (80-100); Mean Platelet Volume 12.3 fL (7.4-10.4); Platelet Count 133 K/uL (130-400); RDW Coefficient of Variation 16.8 % (11.5-14.5); RDW Standard Deviation 52.2 fL (36.4-46.3); Red Blood Count 3.78 M/uL (4.2-5.4); White Blood Count 13.73 K/uL (4.8-10.8)
[2018-10-07 08:00] LABS: Prothrombin Time 35.6 Seconds (9.0-12.0)
[2018-10-07 08:06] LABS: INR 3.8 (0.9-1.1)
[2018-10-07 08:16] LABS: Calcium 10.6 mg/dl (8.5-10.1); Creatinine Clr Calc Pharmacy 15.5 ml/min; Est GFR (African American) 23.8; Est GFR (Non-African American) 20.5; Potassium 4.2 mmol/L (3.5-5.1)
[2018-10-07] MEDS: CYANOCOBALAMIN 500 MCG TABLET (VITAMIN B-12) PO SCH (08:25)
[2018-10-07] MEDS: METOPROLOL SUCC 50MG EXT REL TAB PO SCH (08:25)
[2018-10-07] MEDS: FOLIC ACID 1 MG TAB PO SCH (08:25)
[2018-10-07] MEDS: predniSONE 20 MG TAB PO SCH (08:25)
[2018-10-07] MEDS: BuPROPion SR 150 MG TABCR PO SCH (08:26)
[2018-10-07] MEDS: dilTIAZem ER 120 MG CAPCR PO SCH (09:19)
--- NOTE | 2018-10-07 10:58 | Hospitalist Progress Note ---
Date of Service October 07, 2018 Assessment & Plan (1) Acute on chronic respiratory failure: (2) COPD exacerbation: (3) Bronchiectasis: This is an 83-year-old female with a PMH of severe COPD (on 4 L NC O2), chronic bronchiectasis, paroxysmal atrial fibrillation, CKD IV, SLE, tachy en syndrome s/p pacemaker and other medical problems listed below who presents with acute on chronic respiratory failure. Recent discharge on 09/24/2018 , started on oxygen - 4 L at rest and 6 L on ambulation. -Home oxygen: 4 L rest, 6 L ambulation. Here Hypoxic in mid-80s on 7-8 L oxymask ---> Goal - 88-92% -Home regimen: Pulmicort BID, Trelegy Ellipta. Did not start on Delirasp as first exacerbation of the year. -Recent admission: Legionella antigen negative, Aspergillus- neg, L pneumophilia IgM neg, mycoplasma IgGpositive, IgM negative, Immunoglobulins- Ig E -228 (high) . Patient declined biopsy given risk versus benefits -Etiology: Advanced Emphysema with bronchiectasis / fibrotic changes, opacities per recent CT scan, Recent rx for COPD exacerbation --> Tapered off steroids few days ago. -No evidence of acidosis with VBG pH of 7.4, HCO3 around 27 -Recently completed p.o. steroid course -S/P 60 mg IV Solu-Medrol in ED. Will continue with 40 mg prednisone daily- Day 2 -Xopenex nebs every 6 hours -Pulmonary consulted --> discussed case with Dr Buck. Considering atypical Mycobacterial disease or MAC rx that may be causing further slow deterioration since May. Aspergillus considered given elevated Ig E (4) Paroxysmal atrial fibrillation: HR in 90s, at times goes up to 110-120s -ECG with A fib -Recently had Toprol increased to 50mg daily by pulmonary outpatient on 10/02/18. Added Cardizem 120 mg daily by cardiology today -Anticoagulated on coumadin with therapeutic INR -Echo ordered by cardiology (5) Hypothyroidism: TSH- 0.130 -Continue home dose levothyroxine (6) Stage 4 chronic kidney disease: Cr of 2.9 (baseline mid-high 2s) --> Trending down -In setting of poor PO intake. S/P Gentle IV fluids -Hold lasix (40 mg q 2 days) (7) Tachy-en syndrome: S/p pacemaker placement -on Toprol-XL which was recently increased to 50 mg. Diltiazem 120 mg added by cardiology during this admission. HTN As Metoprolol recently increased to 50 mg, diltiazem added 120 mg. Amlodipine was discontinued today by cardiology Monitor BP DVT Ppx: Coumadin Code status: FULL PCP: Alexandr Dispo: Medical mx in progress PT/OT ordered Continues to require high level of oxygen Got stair slide at home since last discharge. Updated son by bedside Subjective Patient continues to have shortness of breath with minimal exertion. Baselinesevere shortness of breath limiting activity to just few steps at a awilda e and even at rest. No worsening of cough or sputum production. No chest pain, fever, chills, leg swelling Continuous pulse oximetrycurrently on 7 to 8 L of oxygen A fib with HR 90s going up to 120s at times Physical Exam Physical Exam: GENERAL- AAOX3, No acute distress, chronically ill looking. On oxymask + NECK- Supple, no JVD. Not using accessory muscles of respiration LUNGS- Air entry bilaterally decreased, rales present, no wheezing HEART- Irregularly irregular rhythm + EXTREMITIES- Good peripheral pulses, no edema Results & Data Vital Signs (Past 12 Hours) Vital Signs Temp Pulse Resp BP Pulse Ox 10/07/18 07:04 36.4 C L 85 20 133/71 88 L 10/07/18 07:00 83 18 91 10/07/18 02:45 91 10/07/18 02:22 36.4 C L 93 H 24 111/71 85 L 10/06/18 23:40 36.4 C L 93 H 16 117/76 92
--- NOTE | 2018-10-07 10:59 | Cardiology Progress Note ---
Date of Service October 07, 2018 Assessment & Plan (1) Paroxysmal atrial fibrillation: The patient is an 83-year-old female with a history of significant underlying pulmonary disease past paroxysmal atrial fibrillation with recent lapse and atrial fibrillation with rapid response since last admission in early September. Presents now with both worsening pulmonary disease as well as elevated atrial fibrillation rates. She remains properly anticoagulated Plan: Continue Toprol-XL. Diltiazem added this morning. Will follow heart rates. Bradycardia not to be an issue given the indwelling pacemaker We will review echo and left atrial size assess likelihood of returning or maintaining sinus rhythm (2) Tachy-en syndrome: (3) Pacemaker: (4) COPD exacerbation: (5) Acute on chronic respiratory failure: (6) Stage 4 chronic kidney disease: Subjective Patient seen and examined, chart medications, telemetry reviewed. Patient remains dyspneic with minimal exertion. Remains in atrial fibrillation with elevated ventricular response rates with activity. Patient not aware of atrial fibrillation but chronic dyspnea remains an issue. Note, dyspnea preceded lapsed back into atrial fibrillation Physical Exam Constitutional: WD/WN, vitals as above Eyes: PERRL, conjunctivae normal, anicteric sclerae ENMT: external ear and nose normal, oropharynx normal Respiratory: Auscultation: + diminished lung sounds and + rales Cardiovascular: Rate/Rhythm: + irregularly irregular Heart Sounds: normal S1 and normal S2 Gastrointestinal (Abdomen): normal bowel sounds, soft, nontender, no hepatosplenomegaly Musculoskeletal: no cyanosis or clubbing, extremities motor strength 5/5 Skin: no rashes, warm and dry Results & Data Vital Signs (Past 12 Hours) Vital Signs Temp Pulse Resp BP Pulse Ox 10/07/18 07:04 36.4 C L 85 20 133/71 88 L 10/07/18 07:00 83 18 91 10/07/18 02:45 91 10/07/18 02:22 36.4 C L 93 H 24 111/71 85 L 10/06/18 23:40 36.4 C L 93 H 16 117/76 92
[2018-10-07] MEDS ORDERED: AZITHROMYCIN 250 MG TAB PO ONE (12:52)
--- NOTE | 2018-10-07 12:57 | Progress Note ---
DATE: 10/07/2018 PULMONARY MEDICINE PROGRESS NOTE SUBJECTIVE: The patient was resting comfortably in bed today and seen more comfortable than she was yesterday with her breathing. Minimal sputum production. No pleuritic pain. Her granddaughter was sitting by bedside. PHYSICAL EXAMINATION: VITAL SIGNS: Blood pressure 121/74, pulse 77 and regular, respiratory rate 22, temperature 36.3, O2 sat 92% on 8 liters OxyMask. SKIN: Without lesion. HEENT: Atraumatic, normocephalic. PERRLA, EOMI. Conjunctivae pink. NECK: Neck veins are not distended. LUNGS: Hyperresonant with some Velcro rales at the bases. CARDIAC: Irregular rhythm but a controlled ventricular response. No S3. ABDOMEN: Scaphoid. EXTREMITIES: No significant pedal edema, clubbing or cyanosis. NEUROLOGIC: Intact. The patient is currently on Toprol-XL. Diltiazem was added this morning. I had a lengthy discussion with both the patient and her primary hospitalist, Dr. Radha Simpson. The patient is too ill and too end-stage to have any kind of intervention or diagnostic work done, i.e., bronchoscopy, but there has been a changing radiographic picture and clinical picture over the past 3 months, which simply could be the natural history of her disease. The numerous scattered foci of irregular airspace nodularity that have increased since 06/08/2018 could represent an atypical or indolent infection. MAC infection comes to mind and it may be worthwhile to empirically treat and see if there is any clinical improvement. That would be comprised of a 2 or 3 drug regimen 3 times a week, although we can start it out daily to see how she tolerates it and see if empiric treatment is helpful for her. Otherwise, I have very little to offer. We are all looking for some degree of reversibility to her disease. We will proceed with starting her on the regimen and follow accordingly.We will need to take into consideration drug-drug interaction especially w her taking coumadin.Poor renal function precludes other oral aternatives.Rifampin or rifabututin could be problematic as well. MTDD
[2018-10-07] MEDS: ETHAMBUTOL HCL 400 MG TAB PO SCH (14:11)
[2018-10-07] MEDS ORDERED: WARFARIN SOD 1 MG TAB PO SCH (16:00)
[2018-10-07 23:16] LABS: Base Excess ABG -0.6 mEq/L (-9-1.8); HCO3 ABG 23 mmol/L (19-24); Oxygen Saturation ABG 82.2 % (90-95); PCO2 ABG 32 mmHg (35-46); PO2 ABG 47 mm/Hg (80-95); pH ABG 7.47 (7.35-7.45)
[2018-10-07 23:23] LABS: Allen Test POS (Pos)
[2018-10-07] MEDS ORDERED: ALBUT/IPRATROP 3MG/0.5MG NEB 3 ML VIAL NEB STA (23:23)
[2018-10-07] MEDS ORDERED: FUROSEMIDE 20 MG in SYRINGE 0 ML IV ONE (23:30)
[2018-10-08 00:44] LABS: Hematocrit (blood only) 33.2 % (37-47); Hemoglobin 10.6 g/dL (12.0-16.0); Immature Granulocytes % (auto) 0.8 %; Lymphocytes # (auto) 0.12 K/uL (1.2-3.4); Mean Corpuscular Hgb Conc 31.9 g/dL (32-36); Monocytes # (auto) 0.14 K/uL (0.11-0.59); Monocytes % (auto) 1.1 %; Neutrophils # (auto) 12.21 K/uL (1.4-6.5); Neutrophils % (auto) 97.1 %; Nucleated RBC # (auto) 0.03 K/uL (0-0); Nucleated RBC % (auto) 0.3 %; Platelet Count 136 K/uL (130-400); RDW Coefficient of Variation 16.9 % (11.5-14.5); RDW Standard Deviation 53.6 fL (36.4-46.3); Red Blood Count 3.73 M/uL (4.2-5.4); White Blood Count 12.57 K/uL (4.8-10.8)
[2018-10-08 01:00] LABS: BUN Creatinine Ratio 31.4 (10-20); Calcium 10.7 mg/dl (8.5-10.1); Creatinine Clr Calc Pharmacy 14.6 ml/min; Est GFR (African American) 22.2; Est GFR (Non-African American) 19.2; Magnesium 2.3 mg/dl (1.8-2.4); Potassium 4.7 mmol/L (3.5-5.1)
[2018-10-08] MEDS: LEVALBUTEROL HCL 0.63 MG/3 ML NEB NEB SCH ×4 (01:42→19:10)
[2018-10-08] MEDS: LEVOTHYROXINE SODIUM 88 MCG TABLET PO SCH (05:23)
[2018-10-08] MEDS ORDERED: OLANZapine 10 MG/2.1 ML SDV IM STA ×2 (05:38→22:59)
--- NOTE | 2018-10-08 06:17 | XRay Report ---
XR chest 1V portable CLINICAL HISTORY: Shortness of breath COMPARISON STUDY: 10/05/2018 FINDINGS: The cardiac and mediastinal contours remain stable. There is a left subclavian dual-chamber central venous pacemaker present. Interstitial pulmonary fibrotic changes are again evident. There a re equivocal superimposed right basilar airspace opacities. A superimposed pneumonia cannot be exclud ed. Clinical and radiographic follow-up is recommended. There are no significant pleural effusions.[ IMPRESSION: 1. Interstitial pulmonary fibrosis 2. Increased right basilar markings. A superimposed pneumonia must be considered. Clinical and radiog raphic follow-up is recommended. Electronically signed by: Raymond Rocha M.D. 10/08/2018 6:16 AM
[2018-10-08] MEDS: FOLIC ACID 1 MG TAB PO SCH (07:46)
[2018-10-08] MEDS: predniSONE 20 MG TAB PO SCH (07:46)
[2018-10-08] MEDS: CYANOCOBALAMIN 500 MCG TABLET (VITAMIN B-12) PO SCH (07:47)
[2018-10-08] MEDS: dilTIAZem ER 120 MG CAPCR PO SCH (07:47)
[2018-10-08] MEDS: METOPROLOL SUCC 50MG EXT REL TAB PO SCH (07:47)
[2018-10-08] MEDS: BuPROPion SR 150 MG TABCR PO SCH (07:48)
--- NOTE | 2018-10-08 10:37 | Progress Note ---
DATE: 10/08/2018 TIME: 0800. Chart reviewed, the patient examined. SUBJECTIVE: The patient had a very bad evening as far as being extremely confused. She showed significant desaturation at one point on nasal cannula and was switched to BiPAP, which she from all appearances did not tolerate. She was very confused, stating "she has been moved from room to room," although seems oriented this morning. She recognizes she has had periods of confusion. She is back on nasal cannula, trying to eat breakfast, but is saturating in the low 80 percentile range. Her has been here along with her son at 1:30 in the a.m. because of her confusion. She seems more oriented now. PHYSICAL EXAMINATION: CURRENT VITAL SIGNS: Blood pressure 130/70, pulse 92 and irregular, respiratory rate 20, temperature 36.4, O2 sat 90% on 6 liters. SKIN: Without lesion. HEENT: Atraumatic, normocephalic. PERRLA. LUNGS: Hyperresonant with Velcro rales, no audible wheezes. CARDIAC: Irregularly irregular rhythm with controlled ventricular response. ABDOMEN: Soft. EXTREMITIES: Trace pedal edema. No clubbing or peripheral cyanosis. NEUROLOGIC: Intact. No lateralizing signs. Oriented x2. LABORATORY DATA: White count 12,500, H and H 10.6 and 33.2. PT/INR 3.8. ABGs yesterday on 6 liters; pH 7.47, pCO2 32, pO2 47, BUN 72, creatinine 2.3. OVERALL ASSESSMENT: An 83-year-old white female with severe end-stage O2 and steroid dependent chronic obstructive pulmonary disease with a degree of interstitial fibrosis and increased foci of nodularity since May, possibly representing an indolent infection like MAC. I refer to my previous notation from yesterday. We did empirically start her on 2-drug therapy for MAC that included dose adjusted ethambutol given her renal status 3 times weekly and low dose azithromycin. The third agent rifampin or rifabutin would be poorly tolerated in my opinion and in addition would wreak havoc with her PT/INR given she is on Coumadin. She cannot be placed on Xarelto given her poor renal function. Unfortunately, I feel no matter what we do, the patient will do poorly and is doing poorly. I suspect a great deal of her confusion was from progressive hypoxemia. She remains a level 5 DNR in my discussion w the family.May need to be placed on high-flow O2 /Vapotherm given her high O2 demand and desaturation. Overall prognosis poor. MTDD
--- NOTE | 2018-10-08 12:18 | Cardiology Progress Note ---
Date of Service October 08, 2018 Assessment & Plan (1) Paroxysmal atrial fibrillation: The patient is an 83-year-old female with a history of significant underlying pulmonary disease past paroxysmal atrial fibrillation with recent lapse and atrial fibrillation with rapid response since last admission in early September. Presents now with both worsening pulmonary disease as well as elevated atrial fibrillation rates. She remains properly anticoagulated Plan: Continue Toprol-XL. Diltiazem. As noted prior atrial fibrillation was preceded by current symptoms of dyspnea. Will ultimately goals with attempt to control heart rate. Chest x-ray no edema this morning Renal insufficiency limits options but could consider low-dose digoxin as a regimen addition. Pacemaker would prevent bradycardia as complication (2) Tachy-en syndrome: (3) Pacemaker: (4) COPD exacerbation: Pulmonary evaluation noted overall prognosis limited (5) Acute on chronic respiratory failure: (6) Stage 4 chronic kidney disease: Subjective Patient seen and examined, chart medications, telemetry reviewed. Patient remains dyspneic with minimal exertion. Dyspnea worsening over last night received a single dose of IV furosemide due to complaints. Atrial fibrillation remains present but rates trending slightly lower on diltiazem no hypotension. No chest pain Intermittent confusion last night in association with persistent hypoxia Physical Exam Constitutional: WD/WN, vitals as above Eyes: PERRL, conjunctivae normal, anicteric sclerae ENMT: external ear and nose normal, oropharynx normal Respiratory: Auscultation: + diminished lung sounds and + rales Cardiovascular: Rate/Rhythm: + irregularly irregular Heart Sounds: normal S1 and normal S2 Gastrointestinal (Abdomen): normal bowel sounds, soft, nontender, no hepatosplenomegaly Musculoskeletal: no cyanosis or clubbing, extremities motor strength 5/5 Skin: no rashes, warm and dry Results & Data Vital Signs (Past 12 Hours) Vital Signs Temp Pulse Pulse Resp BP Pulse Ox 10/08/18 07:18 92 H 20 90 10/08/18 07:06 36.4 C L 71 17 130/70 94 10/08/18 03:18 36.5 C 88 22 114/71 90 10/08/18 02:01 84 34 H 93 10/08/18 01:42 84 34 H 93 Laboratory Results Laboratory Results - last 24 hr 10/07/18 10/08/18 10/08/18 22:57 00:35 00:35 WBC 12.57 H RBC 3.73 L Hgb 10.6 L Hct 33.2 L MCV 89.0 MCH 28.4 MCHC 31.9 L RDW Std Deviation 53.6 H RDW Coeff of Lazaro 16.9 H Plt Count 136 MPV 12.0 H Immature Gran % (Auto) 0.8 Neut % (Auto) 97.1 Lymph % (Auto) 1.0 Holt % (Auto) 1.1 Eos % (Auto) 0.0 Baso % (Auto) 0.0 Immature Gran # (Auto) 0.10 H Neut # (Auto) 12.21 H Lymph # (Auto) 0.12 L Holt # (Auto) 0.14 Eos # (Auto) 0.00 Baso # (Auto) 0.00 Absolute Nucleated RBC 0.03 H Nucleated RBC % (auto) 0.3 ABG pH 7.47 H ABG pCO2 32 L ABG pO2 47 L ABG HCO3 23 ABG O2 Saturation 82.2 L ABG Base Excess -0.6 Raffi Test POS Barometric Pressure 733.8 Oxygen Given 6 L Sodium 143 Potassium 4.7 Chloride 111 H Carbon Dioxide 25 Anion Gap 7.0 BUN 72 H Creatinine 2.30 H Est Cr Clr Drug Dosing 14.6 Est GFR ( Amer) 22.2 Est GFR (Non-Af Amer) 19.2 BUN/Creatinine Ratio 31.4 H Glucose 213 H Calcium 10.7 H Magnesium 2.3
--- NOTE | 2018-10-08 12:58 | Hospitalist Progress Note ---
Date of Service October 08, 2018 Assessment & Plan (1) Acute on chronic respiratory failure: (2) COPD exacerbation: (3) Bronchiectasis: This is an 83-year-old female with a PMH of severe COPD (on 4 L NC O2), chronic bronchiectasis, paroxysmal atrial fibrillation, CKD IV, SLE, tachy en syndrome s/p pacemaker and other medical problems listed below who Presented with acute on chronic respiratory failure. Recent discharge on 09/24/2018, started on oxygen - 4 L at rest and 6 L on ambulation. Overnight deteriorated clinically with worsening shortness of breath --> received IV Lasix 20 mg, IV Solu-Medrol 40 mg 1 dose. For confusion- zyprexa 2.5 mg x 1 dose -Home oxygen: 4 L rest, 6 L ambulation. Here Hypoxic in mid-80s on 9-10 L oxymask ---> Goal - 88-92% -Home regimen: Pulmicort BID, Trelegy Ellipta. Did not start on Delirasp as first exacerbation of the year. -Recent admission: Legionella antigen negative, Aspergillus- neg, L pneumophilia IgM neg, mycoplasma IgGpositive, IgM negative, Immunoglobulins- Ig E -228 (high) . Patient declined biopsy given risk versus benefits -Etiology: Advanced Emphysema with bronchiectasis / fibrotic changes, opacities per recent CT scan, Recent rx for COPD exacerbation --> Tapered off steroids few days ago. Discussed with pulmonary - started on MAC rx - as that may be causing further slow deterioration since May. Aspergillus considered given elevated Ig E -Recently completed p.o. steroid course -Started on empiric MAC RX with 2 meds- Ethambutol 600 mg MWF (renally dosed) and azithromycin 250 mg MWF on 10/07/18 per pulmonary recommendations -S/P 60 mg IV Solu-Medrol in ED. Will continue with 40 mg prednisone daily- Day 3. May need to keep on terminal worker steroid -Nebs every 6 hours (4) Paroxysmal atrial fibrillation: HR in 90s, at times goes up to 110-120s. Improved after adding cardizem -ECG with A fib -Recently had Toprol increased to 50mg daily by pulmonary outpatient on 10/02/18. Added Cardizem 120 mg daily by cardiology on 10/07/18 -Anticoagulated on coumadin with therapeutic INR -Echo ordered by cardiology (5) Hypothyroidism: TSH- 0.130 -Continue home dose levothyroxine (6) Stage 4 chronic kidney disease: Cr of 2.9 (baseline mid-high 2s) --> Trending down -In setting of poor PO intake. S/P Gentle IV fluids -Held lasix---> Restart lasix at home dose- 40 mg q 2 days (7) Tachy-en syndrome: S/p pacemaker placement -on Toprol-XL which was recently increased to 50 mg. Diltiazem 120 mg added by cardiology during this admission. HTN As Metoprolol recently increased to 50 mg, diltiazem added 120 mg. Amlodipine was discontinued today by cardiology Monitor BP DVT Ppx: Coumadin Code status: DNR/DNI per family/patient PCP: Alexandr Dispo: Medical mx in progress PT/OT ordered Continues to require high level of oxygen. Poor prognosis. Got stair slide at home since last discharge. Updated daughter by bedside Subjective Patient continues to have shortness of breath on minimal exertion. Shortness of breath worsened overnight receiving a dose of IV Lasix, IV Solu- Medrol. Intermittent confusion noted yesterday night. Denies any worsening of cough, fever, chills, chest pain. Oxygen [id number] L on oxygen mask saturating in 88% Physical Exam Physical Exam: GENERAL- AAOX3, No acute distress, chronically ill looking. On oxymask + NECK- Supple, no JVD. Not using accessory muscles of respiration LUNGS- Air entry bilaterally decreased, coarse breath sounds +, rales present, no wheezing HEART- Irregularly irregular rhythm + EXTREMITIES- Good peripheral pulses, no edema Results & Data Vital Signs (Past 12 Hours) Vital Signs Temp Pulse Pulse Resp BP Pulse Ox 10/08/18 07:18 92 H 20 90 10/08/18 07:06 36.4 C L 71 17 130/70 94 10/08/18 03:18 36.5 C 88 22 114/71 90 10/08/18 02:01 84 34 H 93 10/08/18 01:42 84 34 H 93
[2018-10-08] MEDS ORDERED: FUROSEMIDE 40 MG TAB PO SCH (13:00)
--- NOTE | 2018-10-08 16:04 | Communication Note ---
Date of Service: October 08, 2018 Received a call from RN as family is concerned that patient is more confused. Likely secondary to hypoxia Saturation is mid 80s while on 8 to 10 L of oxygen via oxygen mask. On my evaluationpatient is awake, alert, oriented x2. Denies any worsening of shortness of breath. Denies any new symptoms. Having a sandwich brought in by son. Discussed with Dr Buck about transitioning to high flow oxygen given high requirement of oxygen by oxygen mask. Agreeable. Recommend considering hospice care given rapid deterioration and not much to offer. Had a discussion with patient- who wants her and son to make medical decisions for her. Discussed with son and grand daughter- wants to go for hospic care. Will do a family meeting with father, sister at their home tonight. Will consult palliative medicine in AM. Add Ativan PRN for agitation. DNR/DNI confirmed by family.
[2018-10-08] MEDS ORDERED: LORazepam 0.5 MG TAB PO PRN (16:11)
[2018-10-09] MEDS: LEVALBUTEROL HCL 0.63 MG/3 ML NEB NEB SCH ×4 (01:47→19:07)
[2018-10-09] MEDS: LEVOTHYROXINE SODIUM 88 MCG TABLET PO SCH (06:00)
[2018-10-09] MEDS ORDERED: HALOPERIDOL LACTATE 5 MG/ML 1 ML VIAL IM STA (06:09)
[2018-10-09] MEDS ORDERED: HALOPERIDOL LACTATE 5 MG/ML 1 ML VIAL ONE (06:15)
[2018-10-09] MEDS: ETHAMBUTOL HCL 400 MG TAB PO SCH (08:37)
[2018-10-09] MEDS: BuPROPion SR 150 MG TABCR PO SCH (08:39)
[2018-10-09] MEDS: predniSONE 20 MG TAB PO SCH (08:39)
[2018-10-09] MEDS: dilTIAZem ER 120 MG CAPCR PO SCH (08:39)
[2018-10-09] MEDS: FOLIC ACID 1 MG TAB PO SCH (08:39)
[2018-10-09] MEDS: METOPROLOL SUCC 50MG EXT REL TAB PO SCH (08:40)
[2018-10-09] MEDS ORDERED: AZITHROMYCIN 250 MG TAB PO SCH (09:00)
[2018-10-09] MEDS ORDERED: FUROSEMIDE 40 MG TAB PO SCH (09:00)
--- NOTE | 2018-10-09 10:32 | Palliative Care Consultation ---
Date of Consultation October 09, 2018 Assessment & Plan (1) Palliative care encounter: This is an 83-year-old female who presented to the [facility] with acute on chronic respiratory failure. 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 Patient has been treated with steroids, antibiotics and nebulizer treatments. Per discussion with the hospitalist, this patient has show significant decline over the past few months with increased O2 needs increasing from RA to 4 LNC to 6 LNC and now Hi-Flow. The patient has increased agitation and metabolic encephalopathy requiring 1:1 status with rapid deterioration of her respiratory drive. Dr. Larry and Dr. Buck have been involved with her care previously and Hospice care was recommended. Palliative Care was consulted to discuss goals of care, as the family initially considered returning home with hospice. -I met with patient in room 219. Patient was awake and oriented to self only. There have been increasing instances of agitation and hallucinations for which IM Haldol has been administered. -Patient was able to tell me that she ate a little bit for lunch and was able to talk in complete sentences, but was easily irritated, patient did have a 1:1 in the room. -I met outside of the room with the patient's , Frankie and two adult children, Kashif and Madyson, along with the patients brother, Magdaleno. We talked at length about the patients overall decline over the past few months with increased O2 needs, etc. Patient stated they have been for 63 years and she "knew she would go before him" -David mentioned that patient would not want to have anything heroic done and after discussion, we decided that we would NOT escalate care beyond the Hi-Flow nasal canula. They decided they would not want to proceed with the BiPap mask if she declined. -We talked about the patient returning home, but I do not feel that she is stable enough at this time and has too many uncontrolled symptoms with worsening breathing and agitation/hallucinations. -I believe that the family has heightened anxiety related to her returning home, which does not seem to be a reliable option at this time. All family members agreed. We discussed that we can see how things go with a comfort transition and if she would stabilize we could re-visit the possibility of a home with hospice transfer. -A POLST form was completed with the patients family indicating: DNR/DNI, comfort measures only, trial abx, and no artificial nutrition/hydration -I do think that with the rapid decline of this patients respiratory status and uncontrolled agitation, that depending on her symptom response over the next 24 hours, could benefit from GIP Hospice evaluation. If the patient does not qualify for GIP Hospice, I still recommended the benefits of Hospice for bereavement purposes, which the family was interested in, especially for the patients . Case Management was informed of this and will follow up. -After discussion with family and the Hospitalist, we have decided to forgo all blood draws, vital signs monitoring and diagnostic testing. -I ordered the following medications: -Morphine 2mg IV Q1 PRN for pain/air hunger -Atropine SL 4gtts Q3 PRN secretions -Ativan 0.5 mg IV Q4 PRN for agitation -Haldol 2mg PO Q6 PRN for agitation (can be crushed and slurried for administration if necessary) -I provided my business card with contact information, along with the Gone From my Sight booklet with end of life symptoms to anticipate. -I plan to follow this patient and determine how she does over the next 24 - 48 hours, all while providing support to the family. I do not forsee the patient stabilizing for out of hospital transport. -PPS: 20% (2) Paroxysmal atrial fibrillation: (3) Acute on chronic respiratory failure: (4) Tachy-en syndrome: (5) Lupus anticoagulant with hypercoagulable state: (6) Hypoxic encephalopathy: Supervising Physician Co-Signing Physician Notes Chart reviewed, pt seen and examined - sitter at bedside, family in meeting with AMRITA Pickens Collaborated with AMRITA Pickens Pt sats in the 90's when calm and not trying to speak, desats with speech and when disturbed. Pt oriented to person only PE: NAD at rest, increased SOB and anxiety with speech and when disturbed HEENT: EOMI, mild [place] Resp: accessory muscle use at rest, increased when disturbed, on O2 at 14L via oxymask, coarse BS bilaterally CV: RR, no edema Abd: soft, NT, ND Ext: well perfused, no mottling Neuro: alert at times Psych: anxious when disturbed Agree with above note, assessment and plan as per AMRITA Pickens - will follow and support family - pt expected to cont to decline - will see if pt is Hospice GIP appropriate History of Present Illness Reason for Consultation: Goals of care Requesting Physician: Dr. Simpson Attending Physician: Radha Simpson History of Present Illness This is an 83-year-old female who presented to the [facility] with acute on chronic respiratory failure. 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 Patient has been treated with steroids, antibiotics and nebullizer treatments. Per discussion with the hospitalist, this patient has show significant decline over the past few months with increased O2 needs increasing from RA to 4 LNC to 6 LNC and now Hi-Flow. The patient has increased agitation and metabolic encephalopathy requiring 1:1 status with rapid deterioration of her respiratory drive. Dr. Larry and Dr. Buck have been involved with her care previously and Hospice care was recommended. Palliative Care was consulted to discuss goals of care, as the family initially considered returning home with hospice. See A/P for further details. Thank you kindly for involving Palliative Care with this annel patient and fam watson. We will follow closely for symptom management. Allergies Allergy/AdvReac Type Severity Reaction Status Date / Time Nitrate Analogues Allergy Mild Unknown Verified 10/05/18 13:25 nitrofurantoin Allergy Mild Unknown Verified 10/05/18 13:25 Quinolones Allergy Mild Intolerant Verified 10/05/18 13:25 ciprofloxacin [From Cipro] Allergy Unknown Intolerant Verified 10/05/18 13:25 Home Medications Home Medications Medication Instructions Recorded Confirmed Type cyanocobalamin (vitamin B-12) 1,000 mcg PO QAM 03/28/18 10/05/18 History [Vitamin B-12] folic acid 2 mg PO QAM 03/28/18 10/05/18 History furosemide 40 mg PO Q2D 03/28/18 10/05/18 History levothyroxine 88 mcg PO QAM 03/28/18 10/05/18 History warfarin [Jantoven] 2 mg PO MOWEFR@1600 03/28/18 10/05/18 History Trelegy Ellipta 1 inh INHALATION QAM 09/18/18 10/05/18 History albuterol sulfate 2.5 mg INHALATION UD PRN 09/18/18 10/05/18 History albuterol sulfate [ProAir HFA] 2 puff INHALATION Q4H PRN 09/18/18 10/05/18 History bupropion HCl 150 mg PO QAM 09/18/18 10/05/18 History ranitidine HCl 150 mg PO BID 09/18/18 10/05/18 History amlodipine 2.5 mg PO DAILY 10/05/18 10/05/18 History budesonide 0.5 mg INHALATION Q12H 10/05/18 10/05/18 History metoprolol succinate 50 mg PO DAILY 10/05/18 10/05/18 History warfarin [Jantoven] 1 mg PO SUTUTHSA@1600 10/05/18 10/05/18 History Patient History Medical History Paroxysmal atrial fibrillation (Chronic) Carotid artery disease (Chronic) Cerebrovascular disease (Chronic) Anticoagulant long-term use (Chronic) GERD (gastroesophageal reflux disease) (Chronic) Bronchiectasis (Chronic) Hyperparathyroidism (Chronic) Dyslipidemia (Chronic) no statin due to elevated LFT's Hypertension (Chronic) Paroxysmal atrial fibrillation (Chronic) Myelolipoma of right adrenal gland (Chronic) Hypothyroidism (Chronic) Pacemaker (Chronic) Tachy-en syndrome (Chronic) Lupus anticoagulant with hypercoagulable state (Chronic) History of pulmonary embolism (Chronic) Emphysema of lung (Chronic) COPD (chronic obstructive pulmonary disease) (Chronic) Asthma (Chronic) Stage 4 chronic kidney disease (Chronic) Surgical History Status cardiac pacemaker (Chronic) 03/29/18 Dr. Lima Status post cataract extraction (Chronic) Status post partial resection of colon (Chronic) 2006 diverticular abscess Family History Mother Stroke Father Colorectal cancer Other Family history non-contributory Social History Preferred Language: Burkinan Communication Ability: Effective Beliefs That Will Affect Care: None marital status: Current Living Situation: Spouse Current Living Situation Comment: House current occupational status: retired Feels Safe at Home: Yes Safety Concerns: Feels Safe At This Time Smoking Status: Former smoker Second Hand Exposure: No Hx Alcohol Use: No Hx Substance Use: No Review of Systems Review of Systems: Unobtainable due to cognitive status (patient with hallucinations ) Physical Exam Constitutional: + acute distress and + in distress Eyes: PERRL, conjunctivae normal, anicteric sclerae ENMT: external ear and nose normal, oropharynx normal Neck: trachea midline, no thyromegaly Respiratory: + uses accessory muscles Auscultation: + crackles and + rhonchi Cardiovascular: RRR, no murmur, no edema Gastrointestinal (Abdomen): normal bowel sounds, soft, nontender, no hepatosplenomegaly Skin: no rashes, warm and dry Psychiatric: Orientation: alert and oriented to person Results & Data Vital Signs (Past 12 Hours) Vital Signs Temp Pulse Pulse Resp BP BP Pulse Ox 10/09/18 07:36 111 H 20 116/73 93 10/09/18 07:01 92 H 20 89 L 10/09/18 05:20 87 20 93 10/09/18 03:30 36.4 C L 83 22 128/72 94 10/09/18 01:51 86 24 91 10/09/18 01:49 86 22 91 10/09/18 00:04 36.5 C 76 22 105/56 L 91 10/08/18 23:51 94 H PG Care Time/CCT Prolonged Care Time Prolonged Care Time: Yes Total Prolonged Care Time: 100 Time Spent Midlevel Total time spent 100 minutes with > 50% of that time spent assessing the pa tient, discussing goals of care and completing a POLST form.
--- NOTE | 2018-10-09 13:14 | Hospitalist Progress Note ---
Date of Service October 09, 2018 Assessment & Plan (1) Hospice care: This is an 83-year-old female with a PMH of severe end stage COPD (on 4 L NC O2), chronic bronchiectasis, paroxysmal atrial fibrillation, CKD IV, SLE, tachy en syndrome s/p pacemaker and other medical problems who presented with acute on chronic respiratory failure. Recent discharge on 09/24/2018, started on oxygen - 4 L at rest and 6 L on ambulation. She has advanced emphysema with bronchiectasis/fibrotic changes, opacities per recent CT scan, COPD exacerbation. Was given steroids. Started on empiric MAC rx with ethambutol, azithromycin as per pulmonary. Continued on nebulizer treatment. In spite of treatment, she continued to rapidly deteriorate. Hypoxia requiring oxygen via oxygen mask up to 10 L. Was changed to 10 L high flow on 10/08/2018. Discussion was done with pulmonary, family and they decided to go for hospice care. Family meeting done today with and son- wants hospice. Likely will qualify for inpatient hospice. -Discontinued ethambutol, azithromycin, Coumadin -Ativan PRN -Nebs QID and PRN -Palliative consulted. (2) Acute on chronic respiratory failure: (3) COPD exacerbation: (4) Bronchiectasis: -Home oxygen: 4 L rest, 6 L ambulation. Here Hypoxic in mid-80s on 9-10 L oxymask ---> Changed to High flow oxygen 10 L -Home regimen: Pulmicort BID, Trelegy Ellipta. Did not start on Delirasp as first exacerbation of the year. -Recent admission: Legionella antigen negative, Aspergillus- neg, L pneumophilia IgM neg, mycoplasma IgGpositive, IgM negative, Immunoglobulins- Ig E -228 (high) . Patient declined biopsy given risk versus benefits -Etiology: Advanced Emphysema with bronchiectasis / fibrotic changes, opacities per recent CT scan, Recent rx for COPD exacerbation --> Tapered off steroids few days ago. Per pulmonary - started on MAC rx - as that may be causing further slow deterioration since May. Aspergillus considered given elevated Ig E -Nebs QID -Started on empiric MAC RX with 2 meds- Ethambutol 600 mg MWF (renally dosed) and azithromycin 250 mg MWF on 10/07/18 per pulmonary recommendations -S/P 60 mg IV Solu-Medrol in ED. On 40 mg prednisone daily- Day 4. PLAN: Patient continues to deteriorate clinically rapidly requiring 10 L of oxygen high flow. Significantly confused due to hypoxia requiring Haldol administration, one-to-one observation. Discussed with Dr. Lau hospice care. Had a detailed discussion with family on 10/08/2018 eveningopted for hospice care. Again had a family meeting today morning with son Kashif and - wants hospice. (5) Hypoxic encephalopathy: Intermittent confusion , progressively worsening since admission -Currently awake, disoriented x 2. Hallucinations +. Overnight required - Haldol , 1:1 observation -On Ativan PRN (6) Paroxysmal atrial fibrillation: A fib with RVR -Recently had Toprol increased to 50mg daily by pulmonary outpatient on 10/02/18. Added Cardizem 120 mg daily by cardiology on 10/07/18 -Anticoagulated on coumadin with therapeutic INR --> Discontinue as now on hospice care -S/P Cardiology evaluation (7) Stage 4 chronic kidney disease: Cr of 2.9 (baseline mid-high 2s) --> Trending down -In setting of poor PO intake. S/P Gentle IV fluids -Held lasix---> Restarted lasix 40 mg q 2 days (8) Hypothyroidism: TSH- 0.130 -On levothyroxine (9) Tachy-en syndrome: S/p pacemaker placement -on Toprol-XL which was recently increased to 50 mg. Diltiazem 120 mg added by cardiology during this admission. HTN As Metoprolol recently increased to 50 mg, diltiazem added 120 mg. Amlodipine was discontinued by cardiology DVT Ppx: Hospice care. Discontinue coumadin Code status: DNR/DNI per family/patient PCP: Alexandr Dispo: Hospice care. Likely will qualify inpatient hospice Will transfer to 4th floor Family meeting done with son, and palliative medicine. Subjective Patient continues to have shortness of breath on minimal exertion. Overnight had significant agitative episodes requiring Haldol administration and one-to-one observation. Today morning she knows she is in the hospital but on and off very confused. Denies any worsening of symptoms. On high flow oxygen Physical Exam Physical Exam: GENERAL- Awake, confused, disoriented x 2, not in acute distress. High flow oxygen + NECK- Supple, no JVD. Not using accessory muscles of respiration LUNGS- Air entry bilaterally decreased, coarse breath sounds +, rales present, no wheezing HEART- Irregularly irregular rhythm + EXTREMITIES- no edema Results & Data Vital Signs (Past 12 Hours) Vital Signs Temp Pulse Resp BP BP Pulse Ox 10/09/18 07:36 111 H 20 116/73 93 10/09/18 07:01 92 H 20 89 L 10/09/18 05:20 87 20 93 10/09/18 03:30 36.4 C L 83 22 128/72 94 10/09/18 01:51 86 24 91 10/09/18 01:49 86 22 91
[2018-10-09] MEDS ORDERED: ATROPINE SULFATE 1% OP SOLN 5 ML BTL OP PRN (14:34)
[2018-10-09] MEDS ORDERED: LORazepam 0.5 MG/1 ML VIAL IV PRN (14:34)
[2018-10-09] MEDS ORDERED: HALOPERIDOL 1 MG TAB PO PRN (15:30)
--- NOTE | 2018-10-09 16:51 | Pulmonology Progress Note ---
Date of Service October 09, 2018 Assessment & Plan (1) Acute on chronic respiratory failure: Impression: 1. Acute on chronic hypoxic respiratory failure. 2. COPD with conversion to pulmonary fibrosis. 3. Advanced pulmonary fibrosis. 4. Cor pulmonale, with pulmonary hypertension. 5. Paroxysmal A. fib. 6. GERD. Plan: 1. I will change her steroids to a full dose given her worsening respiratory status, I will start her on Solu-Medrol 40 mg IV every 6 hours. 2. I attempted to obtain Oxymizer for her but is not available at our institution. 3. Place the patient on oxygen mask instead of the high flow. 4. The patient cannot tolerate the BiPAP. 5. The patient is DNR. 6. Discussed with the family in details. 7. As an outpatient, the patient worth trying anti-fibroblast therapy. 8. Palliative care consult. Thank you Subjective The patient continues to have shortness of breath and requiring high flow oxygen. I attempted to bring her Oxymizer but the hospital does not have it. We will continue with oxygen mask for the time being at 14 L. Her O2 saturation has been variable and her baseline should be between 85 to 90% only. She speaks in short sentences, denies any chest pain, no hemoptysis and no cough no sputum production, no constitutional symptoms. Review of Systems Review of Systems: Review of system otherwise was unremarkable except for the above. Physical Exam Physical Exam: Very fragile female, with kyphoscoliosis, S1-S2, regular rate and rhythm, systolic ejection murmur, Velcro type crackles bilaterally, abdomen is benign, cold in the periphery due to cor pulmonale and pulmonary hypertension. Neurologically appears to be intact but she had hearing loss. Results & Data Vital Signs (Past 12 Hours) Vital Signs Pulse Resp BP Pulse Ox 10/09/18 14:54 88 20 120/73 82 L 10/09/18 13:07 78 20 90 10/09/18 07:36 111 H 20 116/73 93 10/09/18 07:01 92 H 20 89 L 10/09/18 05:20 87 20 93 Laboratory Results Labs were reviewed from previous. Diagnostic Findings Imaging including chest x-ray and CAT scan both of them showed fibrotic changes, increased interstitial markings.
[2018-10-09] MEDS: MoRPHine SULFATE 2 MG/ML CARP IV PRN ×5 (17:09→23:05)
[2018-10-09] MEDS ORDERED: LORAZEPAM IV PRN ×2 (18:02→19:17)
[2018-10-10] MEDS: MoRPHine SULFATE 2 MG/ML CARP IV PRN ×3 (04:59→08:33)
[2018-10-10] MEDS: LORAZEPAM IV PRN ×2 (06:10→19:15)
[2018-10-10] MEDS ORDERED: MoRPHine SULF/NSS 250 MG/250 ML BTL IV SCH (10:00)
--- NOTE | 2018-10-10 10:30 | Hospitalist Progress Note ---
Date of Service October 10, 2018 Assessment & Plan (1) Hospice care: This is an 83-year-old female with a PMH of severe end stage COPD (on 4 L NC O2), chronic bronchiectasis, paroxysmal atrial fibrillation, CKD IV, SLE, tachy en syndrome s/p pacemaker and other medical problems who presented with acute on chronic respiratory failure. Recent discharge on 09/24/2018, started on oxygen - 4 L at rest and 6 L on ambulation. She has advanced emphysema with bronchiectasis/fibrotic changes, opacities per recent CT scan, COPD exacerbation. Was started on PO steroids- Prednisone 40 mg daily . Started on empiric MAC rx with ethambutol, azithromycin as per pulmonary. Continued on nebulizer treatment. In spite of treatment, she continued to deteriorate clinically very rapidly. Hypoxia requiring oxygen via oxygen mask up to 10 L. Was changed to 10 L high flow on 10/08/2018. Discussion was done with pulmonary, family and they decided to go for hospice care. Family meeting done on 10/09/18 with palliative medicine, and son- wants hospice - likely inpatient hospice. Patient is under hospice care for the following conditions: 1. End stage COPD / Advanced Emphysema 2. Bronchiectasis 3. Interstitial Pulmonary fibrosis 4. Acute on chronic hypoxic respiratory failure 5. Hypoxic Encephalopathy 6. Atrial fibrillation with RVR 7. CKD IV 8. Hx of Tachy- en syndrome with pacemaker in situ 9. Hypothyroidism 10. Hypertension PLAN: -Morphine 2 mg q 1 hour prn --> Will likely need to start IV Morphine drip -Ativan 1 mg IV q 2 hours PRN -Haldol 2 mg q 6 hour prn -Atropine prn for secretions -Pacemaker - Palliative already communicated about magnet placement -Appreciate Palliative medicine inputs Multiple family members by bedside. at home. Son- Kashif by bedside. As is very upset and grieving- he wants us to update him first than him. Subjective Patient is under hospice care. Currently calm and comfortable Physical Exam Physical Exam: GENERAL- Calm and comfortable LUNGS- Air entry bilaterally decreased, crackles + bilaterally HEART- Irregularly irregular rhythm Ext- No edema
--- NOTE | 2018-10-10 11:41 | Palliative Care Progress Note ---
Date of Service October 10, 2018 Assessment & Plan (1) Palliative care encounter: -Comfort measures only. -Patient is mostly obtunded today. Six family members at bedside state that patient was having trouble getting comfortable over night in regards to dyspnea and restlessness. -Patient has required frequent PRN dosing of IV morphine to get comfortable- 16mg in 15 hours. I will start a continuous morphine infusion at this point. Start at 1mg/hr, titrate by 1mg/hr Q15min as needed for pain or SOB. -Continue bolus doses of morphine as needed for pain or dyspnea. Family counseled on the secondary side effects of morphine such as sedation and respiratory depression. -Atropine 1% oph soln 4 drops SL Q1h PRN secretions. -Patient is not stable for transfer out of the facility at this time. She is requiring IV medications for comfort and frequent assessment by nursing staff. She could be GIP candidate, but is now comfortable on morphine gtt. If family feels strongly one way or the other, may have her evaluated by [facility] hospice. Either way, can involve hospice agency for the bereavement benefit for the /family. not at bedside today as he is having a difficult time accepting this. (2) Paroxysmal atrial fibrillation: (3) Acute on chronic respiratory failure: (4) Tachy-en syndrome: (5) Lupus anticoagulant with hypercoagulable state: (6) Hypoxic encephalopathy: Subjective Patient is now obtunded. Two granddaughters, a son and daughter, [id number] and grandson at bedside. Review of Systems Review of Systems: Unobtainable due to reduced consciousness Physical Exam Constitutional: + thin and + frail appearing; no acute distress Respiratory: normal respiratory effort; not tachypneic Auscultation: + rhonchi Cardiovascular: RRR, no murmur, no edema Gastrointestinal (Abdomen): Inspection/Auscultation: abdomen normal to inspection Percussion/Palpation: abdomen soft Skin: no rashes, warm and dry Neurologic: + obtunded Supervising Physician Co-Signing Physician Notes Patient seen and examined-patient's , 3 granddaughters and one grandson at bedside. Collaborated with AMRITA Will Patient transferred to the fourth floor yesterday in the afternoon-required frequent PRN IV morphine and Ativan to get comfortable-continue to require frequent PRN morphine to remain comfortable. Morphine drip started this morning at a rate of 1 mg an hour with a bolus of 1 mg every 15 minutes as needed for respiratory distress or pain. Patient is Ativan interval was decreased to every 2 hours for anxiety/agitation/restlessness. PE: Patient appears comfortable, did not respond to voice or touch Resp: Decreased accessory muscle use at rest, on O2 at 14L via oxymask, coarse BS bilaterally CV: RR, no edema Abd: soft, NT Ext: Warm Neuro: Unresponsive to voice or touch Agree with above note, assessment and plan as per AMRITA Will - will follow and support family - pt expected to cont to decline -hospice referral placed for evaluation for GIP appropriateness PG Care Time/CCT Prolonged Care Time Prolonged Care Time: Yes Total Prolonged Care Time: 30 65 Time Spent Midlevel 35 minutes with >50% of the time spent at bedside with patient and family discussing [place] and EOL issues. Attending Spent 30 minutes in addition to the 35 minutes spent by AMRITA Jaquez- for a total of 65 minutes with greater than 50% of the time spent at bedside evaluating patient's level of comfort as well as discussing end-of-life issues at length with family at bedside.
[2018-10-10 14:40] LABS: Rast Aspergillus fumigatus IgG 10.2 mcg/mL (<2.0)
[2018-10-10] MEDS: ATROPINE SULFATE 1% OP SOLN 5 ML BTL OP PRN ×2 (21:07→22:02)
[2018-10-10] MEDS: LORazepam 1 MG/2 ML VIAL IV SCH (22:02)
[2018-10-11] MEDS: LORazepam 1 MG/2 ML VIAL IV SCH ×3 (01:36→09:58)
[2018-10-11] MEDS ORDERED: ATROPINE SULFATE 1% OP SOLN 5 ML BTL SL PRN (08:50)
--- NOTE | 2018-10-12 05:39 | Discharge Summary ---
Date of Service October 11, 2018 Admission HPI Per Admitting Provider This is an 83-year-old female with a PMH of severe COPD (on 4 L NC O2), chronic bronchiectasis, paroxysmal atrial fibrillation, CKD IV, SLE, tachy en syndrome s/p pacemaker and other medical problems listed below who presents with acute on chronic respiratory failure. Patient was recently admitted from for COPD exacerbation and acute respiratory failure. Was discharged home on steroid taper, which she completed the last dose of yesterday. Was evaluated by pulmonology service during admission and was started on budesonide twice daily. Since discharge, patient states that breathing has been slightly worse than normal, particularly when exerting herself. According to family, patient has been much less active than usual, more week and more visibly short of breath. is now having to manage medications, which is new since hospital discharge. Requires 6L NC O2 with exertion at baseline, but has been becoming hypoxic in mid-80s even when using restroom. Denies fever, chills, lightheadedness, coughing or wheezing. No hemoptysis. Was visited by home health nurse today and was noted to be tachycardic. Cardiology office was called and patient was directed to ED for further evaluation. Denies chest pain or palpitations. Has had poor p.o. intake but denies nausea, vomiting or abdominal pain. No melena or hematochezia. No dysuria, diarrhea or constipation. Principal Diagnosis RESPIRATORY FAILURE /TERMINAL END STAGE STATUS /TRANSITIONED TO IN PATIENT HOSPICE Discharge Exam minimum Exam due to comfort care elderly female , obtunded appears to be in Agonal breathing -shallow breathing leading to long pause on Iv morphine gtt 4 mg /hr no sign of distress -no agitation , no grimaces noted multiple family members - , Daughters /Son -granddaughters are present at bedside Discharge Data Allergies Allergy/AdvReac Type Severity Reaction Status Date / Time Nitrate Analogues Allergy Mild Unknown Verified 10/05/18 13:25 nitrofurantoin Allergy Mild Unknown Verified 10/05/18 13:25 Quinolones Allergy Mild Intolerant Verified 10/05/18 13:25 ciprofloxacin [From Cipro] Allergy Unknown Intolerant Verified 10/05/18 13:25 Consultations 10/05/18 16:19 ED Decision to Admit Stat 10/05/18 19:34 Consult Case Management - Discharge Planning Routine 10/06/18 08:00 Consult Cardiology Routine 10/09/18 08:43 Consult Palliative Care Routine Hospital Course (1) Hospice care: This is an 83-year-old female with a PMH of severe end stage COPD (on 4 L NC O2), chronic bronchiectasis, paroxysmal atrial fibrillation, CKD IV, SLE, tachy en syndrome s/p pacemaker and other medical problems who presented with acute on chronic respiratory failure. Recent discharge on 09/24/2018, started on oxygen - 4 L at rest and 6 L on ambulation. She has advanced emphysema with bronchiectasis/fibrotic changes, opacities per recent CT scan, COPD exacerbation. Was started on PO steroids- Prednisone 40 mg daily . Started on empiric MAC rx with ethambutol, azithromycin as per pulmonary. Continued on nebulizer treatment. In spite of treatment, she con tinued to deteriorate clinically very rapidly. Hypoxia requiring oxygen via oxygen mask up to 10 L. Was changed to 10 L high flow on 10/08/2018. Discussion was done with pulmonary, family and they decided to go for hospice care. Family meeting done on 10/09/18 with palliative medicine, and son- wants hospice - due to pt's rapidly declining status will qualify for inpatient hospice. Patient is under hospice care for the following conditions: 1. End stage COPD / Advanced Emphysema 2. Bronchiectasis 3. Interstitial Pulmonary fibrosis 4. Acute on chronic hypoxic respiratory failure 5. Hypoxic Encephalopathy 6. Atrial fibrillation with RVR 7. CKD IV 8. Hx of Tachy- en syndrome with pacemaker in situ 9. Hypothyroidism 10. Hypertension appreciate input from Palliative care and social service pt will be discharged and re admitted under in patient hospice MEDICATIONS PER HOSPICE -iv morphine gtt titrate to comfort ( at present on 4 mg /hr ) -Ativan 1 mg IV q 2 hours PRN -Haldol 2 mg q 6 hour prn -Atropine prn for secretions -Pacemaker deactivation - Palliative already communicated about magnet placement -Appreciate Palliative medicine inputs PT IS DNR/DNI pt is discharged from Medicine admission and re admitted under in patient Hospice discussed plan of care with Family members /support provided to the grieving family Total Time Total Time Spent Total Time Spent (In Minutes): 35 mins Total Time Includes: Examination of the Patient, Discharge Planning and Medication Reconciliation Discharge Plan Discharge Items Patient Disposition: Hospice - Medical Facility Reason For Visit: COPD EXAC,ACUTE ON CHRONIC RESP FAILURE,A FIB Discharge Diagnosis: respiratory failure /terminal status /Hospice Discharge Goals: Decrease discomfort Activity: As commented below Activity Comment: bed rest -comfort care /hospice Non-emergency contact: Primary Care Provider Call non-emergency contact if: your symptoms worsen Follow-up/Referrals: Yordy Strange MD [Primary Care Provider] - Diet: See below Diet Comment: NPO Addtl Provider Instructions: CONTINUE IN PATIENT HOSPICE /COMFORT CARE IN [facility] Prescriptions: New atropine 1 % Drops 4 drp sublingual Q1H PRN (Reason: INCREASED SECRETION) Qty: 1 RF: 0 Discontinued furosemide 40 mg Tablet 40 mg PO Q2D RF: 0 cyanocobalamin (vitamin B-12) [Vitamin B-12] 1,000 mcg Tablet 1,000 mcg PO QAM RF: 0 levothyroxine 88 mcg Tablet 88 mcg PO QAM RF: 0 warfarin [Jantoven] 2 mg Tablet 2 mg PO MOWEFR@1600 RF: 0 folic acid 1 mg Tablet 2 mg PO QAM RF: 0 bupropion HCl 150 mg Tablet Sustained-Release 12 Hr 150 mg PO QAM RF: 0 albuterol sulfate 2.5 mg /3 mL (0.083 %) Solution For Nebulization 2.5 mg INHALATION UD PRN (Reason: Shortness Of Breath) RF: 0 ranitidine HCl 150 mg Tablet 150 mg PO BID RF: 0 albuterol sulfate [ProAir HFA] 90 mcg/actuation Hfa Aerosol Inhaler 2 puff INHALATION Q4H PRN (Reason: Wheezing) RF: 0 Trelegy Ellipta 100-62.5-25 mcg Blister With Device 1 inh INHALATION QAM RF: 0 warfarin [Jantoven] 2 mg Tablet 1 mg PO SUTUTHSA@1600 RF: 0 metoprolol succinate 50 mg Tablet Extended Release 24 Hr 50 mg PO DAILY RF: 0 amlodipine 2.5 mg Tablet 2.5 mg PO DAILY RF: 0 budesonide 0.5 mg/2 mL Suspension For Nebulization 0.5 mg INHALATION Q12H RF: 0 Stand-Alone Forms: My [facility] Discharge Orders: Discharge Order (Routine); Ordered 10/11/18 Ordered By: Teresita Barillas Admission Data Admit Date/Time: 10/05/18 18:01 Attending Provider: Teresita Barillas Admit Provider: Ella Nobles Primary Care Provider: Yordy Strange Other Providers: Kia Bhatt ; Ella Nobles ; Pedro Abdi ; Jayme Piper ; Maddy Flores ; [facility] ; Radha Simpson Service: Medical Other Interventions: Discharge Summary Assessment (RN) Last Done: 10/11/18 11:43 DC Date/Time DO NOT enter until pt leaves facility: 10/11/18 11:48
== END 2018-10-11 11:48 | disposition hospice, inpatient (51) | DRG 177 ==
LOC: ED 12:28 → SUATTDRO 18:01 → 2S 18:01 → 4E 10-09 14:35

== ENCOUNTER 2018-10-11 11:07 | Inpatient (IN) ==
[2018-10-11] MEDS ORDERED: LORAZEPAM IV PRN (12:05)
[2018-10-11] MEDS ORDERED: ATROPINE SULFATE 1% OP SOLN 5 ML BTL SL PRN (12:07)
--- NOTE | 2018-10-11 12:31 | History & Physical Report ---
Date of Service October 11, 2018 Assessment & Plan (1) Hospice care: pt is admitted to inpatient Hospice under [facility] for end stage respiratory failure on Iv morphine gtt for comfort pt noted to have agonal breathing morphine gtt increased to 5 mg/hr support provided to family members present at bedside (2) Palliative care encounter: (3) Acute on chronic respiratory failure: presented with acute respiratory failure due to COPD exacerbation developed rapid decline in clinical status -despite standard pulmonary treatment by Internal Medicine /pulmonary team family - and children are aware of the poor prognosis they want pt to be comfortable only Palliative care consulted , appreciate input care trasitioned to Hospice /comfort care referral made to [facility] hospice pt remains in IV Morphine gtt -cont to titrate to comfort /respiratory distress (4) Hypoxic encephalopathy: due to above at present remains obtunded due to severe hypoxia /hypercapnia requiring IV m orphine gtt for respiratory distress palliative care consulted cont hospice ,comfort care DNR/DNI admitted to in patient hospice care with [facility] very poor prognosis with terminal status History of Present Illness Chief Complaint: respiratory failure /on comfort /palliative care Admitted to in patient Hospice for rapid decline in status Primary Care Provider: Yordy Strange MD this is a 83 yo F with multiple co morbidities admitted to [facility] on 10/05/18 developed rapid decline in respiratory status family wanted to pt to be comfortable only care transitioned to palliative /comfort care pt is admitted to inpatient Hospice under [facility] Allergies Allergy/AdvReac Type Severity Reaction Status Date / Time Nitrate Analogues Allergy Mild Unknown Verified 10/05/18 13:25 nitrofurantoin Allergy Mild Unknown Verified 10/05/18 13:25 Quinolones Allergy Mild Intolerant Verified 10/05/18 13:25 ciprofloxacin [From Cipro] Allergy Unknown Intolerant Verified 10/05/18 13:25 Home Medications Home Medications Medication Instructions Recorded Confirmed Type atropine 4 drp SUBLINGUAL Q1H PRN #1 btl 10/11/18 Rx Past Med/Surg History Social History Preferred Language: Spanish Communication Ability: Impaired Beliefs That Will Affect Care: None marital status: Current Living Situation: Spouse Current Living Situation Comment: House current occupational status: retired Other Information That Helps Us Care for You: No Feels Safe at Home: Yes Smoking Status: Former smoker Second Hand Exposure: No Hx Alcohol Use: No Hx Substance Use: No Physical Exam Physical Exam: minimum exam for comfort care elderly female obtunded on IV morphine gtt experiencing agonal breathing (1) Acute on chronic respiratory failure Respiratory failure complication: hypoxia and hypercapnia Qualified Code(s): J96.21 - Acute and chronic respiratory failure with hypoxia; J96.22 - Acute and chronic respiratory failure with hypercapnia
[2018-10-11] MEDS: MoRPHine SULF/NSS 250 MG/250 ML BTL IV SCH ×2 (12:58→15:50)
[2018-10-11] MEDS: LORazepam 1 MG/2 ML VIAL IV SCH ×3 (14:08→21:49)
--- NOTE | 2018-10-12 08:41 | Death Summary ---
Date of Service October 11, 2018 Was called prema ceased to breathe at 9:15pm on October 11 2018. Seen and examined the patient. Ge: Unresponsive Eyes: Pupils dilated and non reactive to light. Neck: No palpable caortid pulse. CBS no heart sounds on ascultation RS: no spontaneous breathing observed. No breath sounds on ascultation. Patient pronounced at 9:15pm on October 11 2018. Family in the room. Pronouncement Note Contributing Factors (1) Hospice care: (2) Palliative care encounter: (3) Acute on chronic respiratory failure: (4) Hypoxic encephalopathy: Additional Data Attending physician: Teresita Barillas MD
--- NOTE | 2018-10-12 11:21 | Discharge Summary ---
Date of Service October 12, 2018 Admission HPI Per Admitting Provider this is a 83 yo F with multiple co morbidities admitted to [facility] on 10/05/18 developed rapid decline in respiratory status family wanted to pt to be comfortable only care transitioned to palliative /comfort care pt is admitted to inpatient Hospice under [facility] Principal Diagnosis PATIENT WHILE ON IN PATIENT HOSPICE CARE Discharge Exam PATIENT Discharge Data Allergies Allergy/AdvReac Type Severity Reaction Status Date / Time Nitrate Analogues Allergy Mild Unknown Verified 10/05/18 13:25 nitrofurantoin Allergy Mild Unknown Verified 10/05/18 13:25 Quinolones Allergy Mild Intolerant Verified 10/05/18 13:25 ciprofloxacin [From Cipro] Allergy Unknown Intolerant Verified 10/05/18 13:25 Consultations 10/11/18 12:31 Consult Case Management - Discharge Planning Routine Hospital Course (1) Hospice care: pt is admitted to inpatient [facility] for end stage respiratory failure has been on Iv morphine gtt for comfort pt while on hospice /comfort care cause of : severe refractory COPD exacerbation leading to acute on chronic respiratory failure Hypoxic encephalopahty (2) Palliative care encounter: (3) Acute on chronic respiratory failure: presented with acute respiratory failure due to COPD exacerbation developed rapid decline in clinical status -despite standard pulmonary treatment by Internal Medicine /pulmonary team family - and children are aware of the poor prognosis they want pt to be comfortable only Palliative care consulted , appreciate input care transitioned to hospice /palliative care admitted to inpatient hospice under [facility] hospice pt while on hospice care (4) Hypoxic encephalopathy: due to above pt remained obtunded during last few days of her life -due to severe hypoxia /hypercapnia requiring IV morphine gtt for respiratory distress was on hospice /comfort care DNR/DNI pt on 10/11/2018 while on hospice care Total Time Total Time Spent Total Time Spent (In Minutes): PATIENT Discharge Plan Discharge Items Patient Disposition: Admission Data Admit Date/Time: 10/11/18 11:07 Service: Medical Other DC Date/Time DO NOT enter until pt leaves facility: 10/11/18 21:19
== END 2018-10-11 21:19 | disposition expired | DRG 189 ==
LOC: 4E 11:07